=== PATIENT | female | born 1945 | race Caucasian/White ===

== ENCOUNTER → 2016-10-10 | Outpatient (CLI) | payer MEDICARE ==
--- NOTE | 2016-10-10 09:14 | USB ---
EXAMINATION TYPE: US breast complete RT DATE OF EXAM: 10/10/2016 COMPARISON: No prior right breast ultrasound. CLINICAL HISTORY: N63 R Breast lump/mass. Palpable abnormality. The patient and the 10:00 position. T he nurses notes skin dimpling and retraction. At the 12:00 position within the right breast there is a 5 mm shadowing benign ossification. Corresponding to the patient's palpable abnormality at the 10:00 position there is a mass measuring 2 .6 x 1.5 x 1.9 cm with irregular borders and posterior acoustic shadowing. Adjacent to this there is an ill-defined 7 mm area of hypoechogenicity with surrounding hyperechoic halo, left paracentral to t he index mass. This finding is highly suspicious and warrants ultrasound-guided biopsy. The axilla was scanned with no sonographically abnormal lymph nodes documented. IMPRESSION: 2.6 cm irregular shadowing mass at 10:00 position within the right breast, highly suspic ious for malignancy. Ultrasound-guided core biopsy is recommended of this mass.
== END | disposition home or self-care (01) ==
LOC: RADUSWWP 08:30
PROVIDERS: ATTEND Internal Medicine
DX: N63 Unspecified lump in breast (principal)

== ENCOUNTER → 2016-10-26 | Day surgery (SDC) | payer MEDICARE ==
[2016-10-26 07:22] VITALS: RESP 18; BMI 31.6
[2016-10-26 09:10] VITALS: BP 117/70; PULSE 80; TEMP 98
--- NOTE | 2016-10-26 09:52 | USB ---
EXAMINATION TYPE: US biopsy breast VAD RT DATE OF EXAM: 10/26/2016 CLINICAL HISTORY: R92.8 ABN MAMMO. TECHNIQUE: Ultrasound guided core biopsy of right breast. COMPARISON: NONE FINDINGS: The procedure of ultrasound guided core biopsy was explained to the patient. Benefits, alt ernatives, and risks were discussed. An informed consent was then obtained. The patient was placed in supine positioning for imaging and for the procedure. The overlying skin w as prepped and draped in usual sterile fashion. 9 cc of lidocaine without epinephrine was used as ane sthetic into the skin and 10 cc of lidocaine with epinephrine was utilized to anesthetize the subcuta neous tissue up to area of irregular shadowing mass corresponding to the palpable abnormality at the 10:00 position in the right breast with associated skin retraction. Under ultrasound guidance, a 12-gauge vacuum assisted biopsy gun device was used to obtain 6 core mello ples. Following this, a ribbon-shaped biopsy clip was left in lesion. The patient tolerated the procedure well without any immediate complication. The patient was kept in the radiology department for short stay after the procedure and then discharged home in stable condi tion. Postprocedure mammogram in the CC and MLO projections were performed with clip placed at the margin o f the mass without migration. IMPRESSION: Successful, uncomplicated ultrasound guided core biopsy of area of concern in the right b reast, full pathology results to follow.
--- NOTE | 2016-10-26 10:29 | MM ---
Reason for exam: additional evaluation requested from abnormal screening. Last mammogram was performed 8 months ago. History: Patient is postmenopausal and has history of other cancer at age 66. Family history of premenopausal breast cancer in paternal aunt at age 70 and premenopausal breast cancer in sister at age 50. Benign stereotactic core biopsy of the left breast, December 15, 1997. Excisional biopsy of the right breast, 1971. Took hormonal contraceptives for 5 years. Took estrogen for 2 years. Took progesterone for 2 years. MG Diagnostic Mammo RT Wo CAD CC and ML view(s) were taken of the right breast. Prior study comparison: February 24, 2016, bilateral MG 3d screening mammo w/cad. February 09, 2015, bilateral MG 3d screening mammo w/cad. ASSESSMENT: Post procedure mammogram for marker placement RECOMMENDATION: Ultrasound of the right breast in 6 months. PENDING PATHOLOGY RESULTS.
== END | disposition home or self-care (01) ==
LOC: RADUSWWP 06:50
PROVIDERS: ATTEND Internal Medicine
DX: C50.911 Malignant neoplasm of unspecified site of right female breast (principal); Z78.0 Asymptomatic menopausal state; Z80.3 Family history of malignant neoplasm of breast
CPT/HCPCS: 88305; 88342; 88341; 19083; G0206; A4648; J2001

== ENCOUNTER 2016-11-27 06:50 | Day surgery (SDC) | payer MEDICARE ==
[2016-11-23 08:41] VITALS: BMI 36.4
[~2016-11-27 06:50] MED LIST: DEXAMETHASONE SOD PHOSPHATE 10 MG/ML 1 ML VIAL IV ONE; LACTATED RINGERS 1,000 ML IV SCH; LIDOCAINE 1% 20 ML VIAL (10MG/ML) FOR IV START INTRADERMA PRN; MIDAZOLAM 2 MG/2 ML VIAL IV PRN; ONDANSETRON 4 MG/2 ML VIAL IVP ONE; Pre Op ABX Message 1 EACH MISC MISCELLANE ONE
[2016-11-27] MEDS ORDERED: ALPRAZolam 0.25 MG TAB PO ONE (07:31)
[2016-11-27 07:48] LABS: Glucose,Whole Blood 195 mg/dL (75-99)
[2016-11-27] MEDS: SCOPOLAMINE 1.5MG/72HR PATCH TRANSDERM ONE ×2 (07:51→09:28)
[2016-11-27] MEDS ORDERED: LIDOCAINE 1% INJ 10MG/ML (20 ML MDV) SQ ONE ×2 (08:18→10:21)
[2016-11-27] MEDS ORDERED: HEPARIN SODIUM,PORCINE 5,000 UNIT/ML 1 ML VIAL SQ ONE (08:37)
--- NOTE | 2016-11-27 09:10 | NM ---
EXAMINATION TYPE: NM sentinel node injection DATE OF EXAM: 11/27/2016 COMPARISON: NONE HISTORY: Right breast carcinoma TECHNIQUE AND FINDINGS: The procedure of sentinel lymph node injection was explained to the patient. The benefits, alternatives, and risks were discussed. An informed consent was then obtained. Overlying skin is cleaned with sterile alcohol. Lidocaine buffered with bicarbonate was used as anes thetic into the skin and subcutaneous tissue surrounding the nipple. Following this, 586 uCi Tc 99m Filtered Sulfur Colloid was injected into 4 equivalent doses at 12, 3, 6, and 9:00 position surroundi ng the right nipple intradermally. The injection sites were massaged by nuclear medicine officer for 10 minutes after injection. T he patient tolerated the procedure well without any immediate complication. The patient was kept in the radiology department for short stay after the procedure and then taken to surgery for surgical pr ocedure what is presumed intraoperative gamma probe will be used for sentinel lymph node detection. IMPRESSION: Right breast radiotracer injection for sentinel node localization as above.
[2016-11-27] MEDS ORDERED: PROPOFOL 10 MG/ML 20 ML VIAL IV ONE (09:39)
[2016-11-27] MEDS ORDERED: LIDOCAINE 1% INJ 10MG/ML (20 ML MDV) ONE (09:39)
[2016-11-27] MEDS ORDERED: fentaNYL (PF) 50 MCG/ML 2 ML AMP ONE (09:39)
[2016-11-27] MEDS ORDERED: GLYCOPYRROLATE 0.2 MG/ML 2 ML VIAL ONE (09:39)
[2016-11-27] MEDS ORDERED: ROCURONIUM BROMIDE 10 MG/ML 10 ML VIAL IV ONE (09:39)
[2016-11-27] MEDS ORDERED: SUCCINYLCHOLINE CHLORIDE 100 MG/5 ML SYR IV ONE (09:39)
[2016-11-27] MEDS ORDERED: DEXAMETHASONE SOD PHOS (MDV) 100 MG/10 ML VIAL ONE (09:39)
[2016-11-27] MEDS ORDERED: KETOROLAC 30 MG/ML 1 ML VIAL ONE (09:39)
[2016-11-27] MEDS ORDERED: diphenhydrAMINE 50 MG/ML 1 ML VIAL ONE (09:39)
[2016-11-27] MEDS ORDERED: NEOSTIGMINE 1 MG/ML 10 ML VIAL ONE (09:39)
[2016-11-27] MEDS ORDERED: DEXTROSE 5% IV ONE ×2 (10:00)
[2016-11-27] MEDS ORDERED: METHYLENE BLUE IV ONE ×2 (10:00)
[2016-11-27] MEDS ORDERED: WATER IV ONE ×2 (10:00)
--- NOTE | 2016-11-27 11:49 | P.OP ---
Date of Procedure: 11/27/16 Preoperative Diagnosis: Right breast cancer Postoperative Diagnosis: Same Procedure(s) Performed: Right breast sentinel node mapping, right breast lumpectomy, tissue transfer BioSorb implantation, right axillary sentinel node biopsy Implants: Biozorb Anesthesia: GETA Surgeon: Yolis Wang Estimated Blood Loss (ml): 10 IV fluids (ml): 600 Pathology: other (The breast tissue, axillary sentinel node biopsy) Condition: stable Disposition: PACU Indications for Procedure: Right breast cancer Operative Findings: Right breast cancer Description of Procedure: Patient was taken to the operating room and following induction of general anesthesia the periareolar area was prepped using alcohol. Half-strength methylene blue was injected in the periareolar area, approximately 5 mL. Following this the breast was massaged. The breast was then prepped and draped in a sterile fashion and the arm was free draped. The elliptical skin incision was made at the area of the needle localization wire. This was carried down around the area of concern the skin was excised and the dissection was carried to the chest wall. Grossly there was no evidence of tumor at the margins. The specimen was then painted and sent for radiographic evaluation. Radiographic evaluation area of concern had been removed. He was packed in the axilla was approached. Instruments and gloves were changed. The right count was used to identify the area of highest intensity and a axillary incision was made. This was carried down through skin and subcutaneous tissue to the axillary contents. [place] nodes were identified below and was blue and the 10 second count was 4000 and the second was radioactive with a 10 second count of 382 but no blue dye was identified. This was sent for frozen section evaluation both were negative for cancer. Third enlargement was identified which was also sent for permanent section as axillary contents. Following this a CHESTER drain was placed in the axilla the deep tissues were closed with 3-0 Vicryl suture and the skin was closed with 4-0 Monocryl. Steri-Strips applie. The area of the defect in the breast was then again approached. The defect size was 10 cm x 6 cm. Soft tissue was mobilized approximately 10 cm x 6 cm on either side of the defect and the tissue was mobilized to bleeding to fill in the area of the defect. Medial and lateral sutures were placed into the defects to close the defect. A number 3 BioSorb spacer and titanium marker was inserted. This was secured in place using 3-0 Vicryl suture. The cavity was closed over this using 3-0 Vicryl suture. The skin was reapproximated using a 4-0 Monocryl. The patient tolerated the procedure in stable condition. All instrument sponge counts were correct at the end of the case.
--- NOTE | 2016-11-27 11:52 | P.DS ---
Providers Attending physician: Yolis Wang Primary care physician: Henry Bowling Plan - Discharge Summary New Discharge Prescriptions: New HYDROcodone/APAP 5-325MG [[place] 5] 1 - 2 each PO Q4H PRN #20 tab PRN Reason: Pain No Action metFORMIN HCL 500 mg PO BID Aspirin 81 mg PO DAILY Allopurinol [Zyloprim] 300 mg PO DAILY Ergocalciferol (Vitamin D2) [Vitamin D2] 50,000 unit PO TH Ketorolac [Toradol] 10 mg PO Q8HR PRN PRN Reason: migraines Ezetimibe [Zetia] 10 mg PO HS Rosuvastatin [Crestor] 10 mg PO MOWEFR Escitalopram [Lexapro] 10 mg PO DAILY Amitriptyline HCl [Elavil] 50 mg PO HS Fioricet(Dose Unknown) 1 tab PO Q8HR PRN PRN Reason: migraines Pantoprazole Sodium 40 mg PO DAILY PRN PRN Reason: Heartburn Discharge Medication List Allopurinol [Zyloprim] 300 mg PO DAILY 12/02/13 [History] Aspirin 81 mg PO DAILY 12/02/13 [History] metFORMIN HCL 500 mg PO BID 12/02/13 [History] Ergocalciferol (Vitamin D2) [Vitamin D2] 50,000 unit PO TH 10/19/16 [History] Amitriptyline HCl [Elavil] 50 mg PO HS 11/23/16 [History] Escitalopram [Lexapro] 10 mg PO DAILY 11/23/16 [History] Ezetimibe [Zetia] 10 mg PO HS 11/23/16 [History] Fioricet(Dose Unknown) 1 tab PO Q8HR PRN 11/23/16 [History] Ketorolac [Toradol] 10 mg PO Q8HR PRN 11/23/16 [History] Pantoprazole Sodium 40 mg PO DAILY PRN 11/23/16 [History] Rosuvastatin [Crestor] 10 mg PO MOWEFR 11/23/16 [History] HYDROcodone/APAP 5-325MG [[place] 5] 1 - 2 each PO Q4H PRN #20 tab 11/27/16 [Rx] Follow up Appointment(s)/Referral(s): Yolis Wang MD [STAFF PHYSICIAN] - 1 Week Activity/Diet/Wound Care/Special Instructions: teach drain care do not drive today, or if taking narcotic pain medication may be in shower in 24 hours Discharge Disposition: HOME SELF-CARE
--- NOTE | 2016-11-27 11:52 | MM ---
EXAMINATION TYPE: MG pre op needle loc RT, MG surgical specimen RT DATE OF EXAM: 11/27/2016 9:03 AM COMPARISON: NONE HISTORY: Right breast malignancy Informed consent was obtained and all the patient's questions were answered. The lesion in question was localized mammographically. The standard sterile technique was utilized, as well as appropriate local anesthesia with 1% Lidocaine and bicarbonate. Localization needle followed by placement of a guidewire was performed under mammographic guidance. Verification images demonstrate appropriate depl oyment of the guidewire. The patient tolerated the procedure well and left the department in stable condition. Specimen radiograph demonstrates the lesion and clip in question to reside within the specimen. IMPRESSION: Successful needle localization and open biopsy right breast with pathology results rhea Gutierrez
[2016-11-27] MEDS: HYDROmorphone 1 MG/ML 1 ML SYRINGE IVP PRN ×4 (12:15→12:30)
[2016-11-27 12:33] VITALS: TEMP 98
[2016-11-27 12:52] LABS: Glucose,Whole Blood 264 mg/dL (75-99)
[2016-11-27] MEDS ORDERED: INSULIN LISPRO (humaLOG) 300 UNIT/3 ML VIAL SQ ONE (12:55)
[2016-11-27] MEDS ORDERED: ONDANSETRON 4 MG/2 ML VIAL IVP ONE (13:07)
[2016-11-27] MEDS ORDERED: diphenhydrAMINE 50 MG/ML 1 ML VIAL IVP ONE (13:16)
[2016-11-27 14:03] VITALS: BP 104/74; PULSE 94; RESP 20
== END 2016-11-27 14:48 | disposition home or self-care (01) ==
LOC: OR 06:50
PROVIDERS: ATTEND Surgery
DX: C50.911 Malignant neoplasm of unspecified site of right female breast (principal); E78.5 Hyperlipidemia, unspecified; Z87.891 Personal history of nicotine dependence; E11.9 Type 2 diabetes mellitus without complications; Z79.84 Long term (current) use of oral hypoglycemic drugs; K21.9 Gastro-esophageal reflux disease without esophagitis; Z79.82 Long term (current) use of aspirin; Z79.899 Other long term (current) drug therapy; Z91.09 Other allergy status, other than to drugs and biological substances
CPT/HCPCS: 76098; 19281; 38792; 19301; 38500; A9541; J1200; J1644; J1100 ×2; J2710; J2405; J2001; Q9968; J3010; J1885; J1170; J0330; J2704

== ENCOUNTER → 2017-01-01 | Outpatient (CLI) | payer MEDICARE ==
--- NOTE | 2017-01-01 11:19 | BD ---
EXAMINATION TYPE: MG DEXA axial skeleton. DATE OF EXAM: 01/01/2017 COMPARISON: Bone density July 07, 2012 CLINICAL HISTORY: Postmenopausal female Height: 62 Weight: 192.8 FRAX RISK QUESTIONS: Alcohol (3 or more units per day): no Family History (Parent hip fracture): no Glucocorticoids (More than 3mos): no (Ex: prednisone, prednisolone, methylprednisolone, dexamethasone, and hydrocortisone). History of Fracture in Adulthood: no Secondary Osteoporosis: 1. Type 1 Diabetes: no 2. Hyperthyroidism: no 3. Menopause before 45: yes 4. Malnutrition: no 5. Chronic liver disease: no Rheumatoid Arthritis: no Current Tobacco Use: no RISK FACTORS HISTORY OF: Hip Fracture (Right/Left): no Spine Fracture: no History of Wrist Fracture: no Surgery to Spine/Hip(right/left)/Wrist (right/left): no Family History of Osteoporosis: yes Active: yes Diet low in dairy products/other sources of calcium: yes Postmenopausal woman: hysterectomy age 33 Lost more than 2 inches in height since high school: no Frequent falls: no Poor Health: no Hyperparathyroidism: no Adrenal Insufficiency: no MEDICATIONS: hydrocodone, allopurinol, metformin, ketorolac, pantoprazole, ergocalciferol. floricet, rosuvastatin, escitalopram, amitriptyline , ezetimibe Additional History: pt has had breast cancer EXAM MEASUREMENTS: Bone mineral densitometry was performed using the Tech Cocktail System. Bone mineral density as measured about the Lumbar spine is: ----- L1-L4(G/cm2): 1.264 T Score Values are as follows: ----- L2: 0.1 ----- L3: 0.5 ----- L4: 1.5 ----- L1-L4: 0.7 Bone mineral density has: increased 0.2 % since study of: 07.07.2012 Bone mineral density about the R hip (g/cm2): 0.886 Bone mineral density about the L hip (g/cm2): 0.936 T Score values are as follows: -----R Neck: -1.1 -----L Neck: -0.7 -----R Total: 0.1 -----L Total: 0.7 Bone mineral density has: decreased -3.8 % since study of: 07.07.2012 IMPRESSION: Osteopenia (T Score between -2.5 and -1 as noted by T score values is now present femoral neck level in the right hip. Bone density is decreased or diminished from prior. There is slightly increased risk of fracture and the patient may be considered for treatment. Re-Screen 2-5 years. NOTE: T-SCORE=SD OF THE YOUNG ADULT MEAN.
== END | disposition home or self-care (01) ==
LOC: RADBDWWP 09:05
PROVIDERS: ATTEND Internal Medicine Hematology & Oncology
DX: C50.411 Malignant neoplasm of upper-outer quadrant of right female breast (principal); M85.852 Other specified disorders of bone density and structure, left thigh; Z78.0 Asymptomatic menopausal state
CPT/HCPCS: 77080

== ENCOUNTER → 2017-01-14 | Outpatient (CLI) | payer MEDICARE ==
--- NOTE | 2017-01-14 14:38 | MM ---
Reason for exam: follow-up at short interval from prior study. Last mammogram was performed 3 months ago. History: Patient is postmenopausal, has history of breast cancer at age 71, and has history of other cancer at age 66. Family history of premenopausal breast cancer in paternal aunt at age 70 and premenopausal breast cancer in sister at age 50. Malignant MG pre op needle loc RT of the right breast, November 27, 2016. Malignant US biopsy breast VAD RT of the right breast, October 26, 2016. Benign stereotactic core biopsy of the left breast, December 15, 1997. Excisional biopsy of the right breast, 1971. Took hormonal contraceptives for 5 years. Took estrogen for 2 years. Took progesterone for 2 years. Physical Findings: Nurse did not find any significant physical abnormalities on exam. MG 3D Diag Mammo W/Cad LT CC, MLO, and spot compression CC view(s) were taken of the left breast. Prior study comparison: October 26, 2016, right breast MG diagnostic mammo RT wo CAD. February 24, 2016, bilateral MG 3d screening mammo w/cad. February 09, 2015, bilateral MG 3d screening mammo w/cad. Medial asymmetry at middle depth appears similar to 2014, spot compression view done as a precautionary measure. Improves on additional view. These results were verbally communicated with the patient and result sheet given to the patient on 01/14/17. ASSESSMENT: Benign, BI-RAD 2 RECOMMENDATION: Follow-up diagnostic mammogram of both breasts in 9 months. Back on schedule.
== END | disposition home or self-care (01) ==
LOC: RADMAMWWP 13:25
PROVIDERS: ATTEND Surgery
DX: Z08 Encounter for follow-up examination after completed treatment for malignant neoplasm (principal); Z85.3 Personal history of malignant neoplasm of breast
CPT/HCPCS: G0206; G0279

== ENCOUNTER → 2017-06-26 | Outpatient (CLI) | payer MEDICARE ==
--- NOTE | 2017-06-27 11:14 | USB ---
Reason for exam: clinical finding. History: Patient is postmenopausal, has history of breast cancer at age 71, and has history of other cancer at age 66. Family history of premenopausal breast cancer in paternal aunt at age 70 and premenopausal breast cancer in sister at age 50. Malignant MG pre op needle loc RT of the right breast, November 27, 2016. Malignant US biopsy breast VAD RT of the right breast, October 26, 2016. Benign stereotactic core biopsy of the left breast, December 15, 1997. Excisional biopsy of the right breast, 1971. Took hormonal contraceptives for 5 years. Took estrogen for 2 years. Took progesterone for 2 years. Indicated problem(s): palpable abnormality in the right breast. Physical Findings: Nurse Summary: 2.5cm firm nodule near incision (nurse dw). US Breast RT Right breast ultrasound includes all four quadrants, the retroareolar region and axilla. Finding demonstrates a 3.1 x 0.9 x 2.8cm cystic fluid collection at 10 o'clock, possible seroma, not hypoechoic with debris like typical abscess. There may be a foreign body deep to the fluid collection. These results were verbally communicated with the patient and result sheet given to the patient on 06/26/17. ASSESSMENT: Probably benign, BI-RAD 3 RECOMMENDATION: Clinical management of the right breast. Manage patient on a clinical basis.
== END | disposition home or self-care (01) ==
LOC: RADUSWWP 14:35
PROVIDERS: ATTEND Radiology Radiation Oncology
DX: N64.4 Mastodynia (principal); C50.411 Malignant neoplasm of upper-outer quadrant of right female breast; Z85.3 Personal history of malignant neoplasm of breast

== ENCOUNTER → 2017-07-24 | Day surgery (SDC) | payer MEDICARE ==
[2017-07-24 12:03] VITALS: RESP 16; BMI 38.0
[2017-07-24 13:48] VITALS: BP 108/72; PULSE 75; TEMP 98.8
--- NOTE | 2017-07-24 14:08 | USB ---
EXAMINATION TYPE: US breast aspiration single RT DATE OF EXAM: 07/24/2017 CLINICAL HISTORY: 72-year-old female with right breast pain. Patient with relatively recent right-chayito ed lumpectomy and radiation therapy for right breast cancer. Lumpectomy on 11/27/2016 and radiation th erapy completed in March. TECHNIQUE: Ultrasound guided aspiration right breast. COMPARISON: 06/26/2017 FINDINGS: The procedure of ultrasound guided core biopsy was explained to the patient. Benefits, alt ernatives, and risks were discussed. An informed consent was then obtained. The patient was placed in supine positioning for imaging and for the procedure. The overlying skin w as prepped and draped in usual sterile fashion. Lidocaine buffered with bicarbonate was used as anes thetic into the skin and subcutaneous tissue up to area of concern in the right breast. The 2.7 x 2.7 x 0.5 cm minimally complex, circumscribed fluid collection at the patient's lumpectomy site is redemonstrated and targeted for aspiration. Under ultrasound guidance, an 18-gauge needle is advanced into the collection. Aspiration yields 3 mL of clear yellow fluid. The fluid collection completely resolved. The fluid specimen is being sent for cytology and microbiology. The patient tolerated the procedure well without any immediate complication. The patient was kept in the radiology department for short stay after the procedure and then discharged home in stable condi tion. IMPRESSION: Successful, uncomplicated ultrasound guided aspiration of suspected postlumpectomy seroma right breas t. Laboratory analysis of the fluid is pending.
[2017-07-24 16:54] LABS: Appearance,BF Hazy; Nucleated Cells, Body Fluid 13 /uL; RBC, Body Fluid 13 /uL
[2017-07-24 16:55] LABS: Mononuclear WBC,Body Fluid 100 %; Total Cells Counted,Body Fluid 100
== END ==
LOC: RADUSWWP 11:45
PROVIDERS: ATTEND Surgery
DX: N60.01 Solitary cyst of right breast (principal); Z85.3 Personal history of malignant neoplasm of breast; Z92.3 Personal history of irradiation
CPT/HCPCS: 88108; 89050; 87070; 87205; 87075; 76942; 19000; J2001

== ENCOUNTER → 2017-08-01 | Outpatient (CLI) | payer MEDICARE ==
--- NOTE | 2017-08-01 15:37 | P.CON ---
Consult Note - . Consult date: 08/01/17 Assessment/Plan:: Patient is a 72 year old white female who was initially complaining of pain at a surgical site in the right breast. She is status post lumpectomy and SNB. The cytology was benign, and the micro was no growth. Patient is due to have bilateral mammogram in September. She is feeling much better without any complaints. Physical Exam: puncture site clean and dry no infection Plan: 1. Follow up in September with bilateral mammogram 2. follow up wit ct after mammogram/ follow up sooner if any complaints or concerns
== END ==
LOC: WWCWWP 15:20
PROVIDERS: ATTEND Surgery
DX: N64.4 Mastodynia (principal); Z53.9 Procedure and treatment not carried out, unspecified reason

== ENCOUNTER → 2017-09-09 | Outpatient (CLI) | payer MEDICARE ==
--- NOTE | 2017-09-09 14:29 | MM ---
Reason for exam: follow-up at short interval from prior study. Last mammogram was performed 8 months ago. History: Patient is postmenopausal, has history of breast cancer at age 71, and has history of other cancer at age 66. Family history of premenopausal breast cancer in paternal aunt at age 70 and premenopausal breast cancer in sister at age 50. Benign US breast aspiration single RT of the right breast, July 24, 2017. Malignant MG pre op needle loc RT of the right breast, November 27, 2016. Malignant US biopsy breast VAD RT of the right breast, October 26, 2016. Radiation therapy of the right breast, 2016. Benign stereotactic core biopsy of the left breast, December 15, 1997. Excisional biopsy of the right breast, 1971. Took hormonal contraceptives for 5 years. Took estrogen for 2 years. Took progesterone for 2 years. Taking antineoplastic beginning at age 71. Physical Findings: Nurse did not find any significant physical abnormalities on exam. MG 3D Diag Mammo W/Cad [facility] Bilateral CC and MLO view(s) were taken. Prior study comparison: January 14, 2017, left breast MG 3d diag mammo w/cad LT. October 26, 2016, right breast MG diagnostic mammo RT wo CAD. There are scattered fibroglandular densities. Post surgical and post therapy changes in the right breast, with lumpectomy scar and BioZorb marker. Secretory calcifications upper outer quadrant sightly increased. 6 month follow up can be performed to assess any evolving post therapy changes. These results were verbally communicated with the patient and result sheet given to the patient on 09/09/17. ASSESSMENT: Probably benign, BI-RAD 3 RECOMMENDATION: Follow-up diagnostic mammogram of the right breast in 6 months.
== END | disposition home or self-care (01) ==
LOC: RADMAMWWP 13:26
PROVIDERS: ATTEND Radiology Radiation Oncology
DX: Z08 Encounter for follow-up examination after completed treatment for malignant neoplasm (principal); Z85.3 Personal history of malignant neoplasm of breast
CPT/HCPCS: 77066; G0279; 77062

== ENCOUNTER → 2018-10-27 | Outpatient (CLI) | payer MEDICARE ==
--- NOTE | 2018-10-28 13:37 | MM ---
Reason for exam: screening (asymptomatic). Last mammogram was performed 7 months ago. History: Patient is postmenopausal, has history of breast cancer at age 71, and has history of other cancer at age 66. Family history of premenopausal breast cancer in paternal aunt at age 70 and premenopausal breast cancer in sister at age 50. Benign US breast aspiration single RT of the right breast, July 24, 2017. Malignant MG pre op needle loc RT of the right breast, November 27, 2016. Malignant US biopsy breast VAD RT of the right breast, October 26, 2016. Radiation therapy of the right breast, 2016. Benign stereotactic core biopsy of the left breast, December 15, 1997. Excisional biopsy of the right breast, 1971. Took hormonal contraceptives for 5 years. Took estrogen for 2 years. Took progesterone for 2 years. Taking antineoplastic beginning at age 71. Physical Findings: A clinical breast exam by your physician is recommended on an annual basis and results should be correlated with mammographic findings. MG 3D Screening Mammo W/Cad Bilateral CC and MLO view(s) were taken. Prior study comparison: April 09, 2018, mammogram, performed at [place]. September 09, 2017, bilateral MG 3d diag mammo w/cad [facility]. January 14, 2017, left breast MG 3d diag mammo w/cad LT. There are scattered fibroglandular densities. Post surgical and post therapy changes right breast with Biozorb device and secretory calcifications redemonstrated. Nodular asymmetry centrally and anteriorly left MLO view is more defined. ASSESSMENT: Incomplete: need additional imaging evaluation, BI-RAD 0 RECOMMENDATION: Special view mammogram of the left breast. (3D) If lesion persists on supplemental views, image directed ultrasound is recommended. [facility] will attempt to contact patient to return for supplemental views and ultrasound if indicated.
== END | disposition home or self-care (01) ==
LOC: RADMAMWWP 10:41
PROVIDERS: ATTEND Surgery
DX: Z12.31 Encounter for screening mammogram for malignant neoplasm of breast (principal)
CPT/HCPCS: 77063; 77067

== ENCOUNTER → 2018-11-06 | Outpatient (CLI) | payer MEDICARE ==
--- NOTE | 2018-11-06 14:12 | MM ---
Reason for exam: additional evaluation requested from abnormal screening. Last mammogram was performed less than 1 month ago. History: Patient is postmenopausal, has history of breast cancer at age 71, and has history of other cancer at age 66. Family history of premenopausal breast cancer in paternal aunt at age 70 and premenopausal breast cancer in sister at age 50. Benign US breast aspiration single RT of the right breast, July 24, 2017. Malignant MG pre op needle loc RT of the right breast, November 27, 2016. Malignant US biopsy breast VAD RT of the right breast, October 26, 2016. Radiation therapy of the right breast, 2016. Benign stereotactic core biopsy of the left breast, December 15, 1997. Excisional biopsy of the right breast, 1971. Took hormonal contraceptives for 5 years. Took estrogen for 2 years. Took progesterone for 2 years. Taking antineoplastic beginning at age 71. Physical Findings: Nurse did not find any significant physical abnormalities on exam. MG 3D Work Up W/Cad LT Spot compression CC, spot compression MLO, and LM view(s) were taken of the left breast. Prior study comparison: October 27, 2018, bilateral MG 3d screening mammo w/cad. April 09, 2018, mammogram, performed at [place]. The breast tissue is heterogeneously dense. This may lower the sensitivity of mammography. Benign appearing calcifications in the left breast. Left upper inner quadrant focal asymmetry resolves on MLO spot compression and ML vies and appears stable on CC back to 2014. These results were verbally communicated with the patient and result sheet given to the patient on 11/06/18. ASSESSMENT: Benign, BI-RAD 2 RECOMMENDATION: Return to routine screening mammogram schedule for both breasts.
== END | disposition home or self-care (01) ==
LOC: RADMAMWWP 13:17
PROVIDERS: ATTEND Surgery
DX: R92.8 Other abnormal and inconclusive findings on diagnostic imaging of breast (principal)
CPT/HCPCS: 77065; G0279; 77061

== ENCOUNTER → 2018-11-14 | Outpatient (CLI) | payer MEDICARE ==
[2018-11-14 13:13] VITALS: BP 151/62; PULSE 74; RESP 18; TEMP 98.1; BMI 38.5
--- NOTE | 2018-11-14 13:48 | P.PN ---
Subjective Progress Note Date: 11/14/18 Patient is a 72 year old white female status post right breast lumpectomy November and re-excisoin December of 2016. patient had radiation therapy. Patient did not have any chemotherapy, but she had been treated with letrazole. Bilateral mammogram was done on 10-27-18. Special views of the left breast recommended. Additional views of the left breast were obtained on 11-06-18. These were felt to be benign and repeat mammogram in October 2019. The patient continues to have discomfort in her right breast. She can still feel the BioSorb. The tenderness is at the 12 o'clock position and extends under the right arm. There is a low-grade constant ache. She has no fever chills or evidence of infection. No history of any trauma. The patient continues on letrazole. family history: father: multiple myloma mother; lung cancer sister: breast cancer maternal aunt: melanoma maternal uncle: brain cancer maternal uncle: laryengeal cancer paternal aunt: "ear" cancer paternal uncle: Laryngeal cancer patient: 4 skin cancers past surgical history; 1. right breast cancer 2. tubal/hysterectomy 3. gallbladder 4. right knee 3 times 5. right leg fracture 6. bilateral shoulder bone spurs Medical History: 1. diabetic 2. arthritis 3. history of skin cancer no melanoma Social History: smoke: stopped 27 years ago alcohol: wine three times/week drugs: none - EENT Eyes: denies blurred vision, denies bulging eye, denies decreased vision, denies diplopia, denies discharge Ears: deny: decreased hearing, ear discharge, earache, tinnitus Ears, nose, mouth and throat: Reports as per HPI - Breasts Breasts: bilateral: as per HPI - Cardiovascular Cardiovascular: Reports as per HPI - Respiratory Respiratory: Denies cough - Gastrointestinal Gastrointestinal: Denies abdominal pain, Denies diarrhea, Denies nausea, Denies vomiting - Genitourinary (Female) Genitourinary: Denies dysuria, Denies hematuria - Genitourinary (Male) Genitourinary: Denies dysuria, Denies hematuria - Musculoskeletal Comment: arthritis - Integumentary Comment: skin cancer times four - Neurological Comment: migrains Neurological: Denies numbness, Denies weakness - Psychiatric Psychiatric: Denies anxiety, Denies depression - Endocrine Comment: diabetes - Hematologic/Lymphatic Comment: takes aspirin - Allergic/Immunologic Allergic/Immunologic: Reports seasonal allergies Past Medical History Past Medical History: Cancer, Diabetes Mellitus, GERD/Reflux, Hyperlipidemia, Osteoarthritis (OA), Skin Disorder Additional Past Medical History / Comment(s): Migraines, hx. of pancreatitis, "inverted T waves" in past, rosacea, skin cancer, breast cancer, c-diff yrs ago History of Any Multi-Drug Resistant Organisms: None Reported Date of last positivie culture/infection: 2002 MDRO Source:: STOOL Past Surgical History: Appendectomy, Breast Surgery, Cholecystectomy, Hysterectomy, Joint Replacement, Orthopedic Surgery Additional Past Surgical History / Comment(s): rt knee replacement x 3. ORIF left ANKLE.. BILATERAL SHOULDER SURGERY FOR SPUR REMOVAL. BILATERAL HEELS BONE SPUR REMOVAL AND PLANTAR FASCITIS SURGERY. left GREAT TOE BONE SPUR REMOVAL. rt breast biopsy, recent adm. for Lumpectomy states margins were not wide enough. Past Anesthesia/Blood Transfusion Reactions: Motion Sickness, Postoperative Nausea & Vomiting (PONV) Additional Past Anesthesia/Blood Transfusion Reaction / Comment(s): States was still having nausea after surgery. Past Psychological History: Anxiety Smoking Status: Former smoker Past Alcohol Use History: Occasional Additional Past Alcohol Use History / Comment(s): quit smoking 25 yrs ago, smoked for 20 yrs, 1 PPD Past Drug Use History: None Reported Objective - Vital Signs Vital signs: Vital Signs Temp 98.1 F 11/14/18 13:09 Pulse 74 11/14/18 13:09 Resp 18 11/14/18 13:09 BP 151/62 11/14/18 13:09 Pulse Ox 98 11/14/18 13:09 Intake & Output 11/13/18 11/14/18 11/14/18 18:59 06:59 18:59 Weight 89.358 kg - Exam BMI 38.5 - Constitutional General appearance: Present: obese - EENT Eyes: Present: EOMI ENT: Present: hearing grossly normal - Neck Neck: Present: normal ROM - Respiratory Respiratory: bilateral: CTA - Cardiovascular Rhythm: regular Heart sounds: normal: S1, S2 - Gastrointestinal General gastrointestinal: Present: soft - Integumentary Integumentary: Present: normal turgor - Musculoskeletal Musculoskeletal: Present: gait normal - Psychiatric Psychiatric: Present: A&O x's 3, appropriate affect - Additional findings Additional findings: Breast examination: Right breast: Postoperative changes secondary to prior right lumpectomy, is believed to be BioSorb still palpable, this area is tender No dominant masses or nodules of concern for recurrent cancer Right axilla: No adenopathy of concern Right breast is smaller than left breast. Left breast 44 double D Right breast 44 mL Left breast: Multi-positional exam no dominant masses or nodules of concern, fibrocystic changes Left axilla: No adenopathy of concern Assessment and Plan Assessment: Impression: 1. Mastodynia right breast lumpectomy/biopsy of site; this is most likely multifactorial related to radiation, scar tissue from lumpectomy, and BioSorb 2. Prior history of right breast carcinoma treated with lumpectomy, radiation, left resolve 3. Family history of cancer 4. Family history of breast cancer 5. Asymmetry of breast resulting in neck pain and difficulty finding closed to fit well 6. BMI 38.5 7. diabetes 8. Chronic neck/back pain may be related to asymmetry of breasts enlarged size of left breast 9. Shoulder notching secondary to heavy breast Plan: 1. Repeat bilateral mammogram in October 2. Continue lead resolved 3. Consider contralateral symmetry procedure of the left breast which would result in a reduction secondary to the size difference between the breast 4. Medical management of medical conditions 5. Consider removal of Biozorb secondary to persistent discomfort in the right breast CC: Dr. Bowling
== END ==
LOC: WWCWWP 12:45
PROVIDERS: ATTEND Surgery
DX: Z53.9 Procedure and treatment not carried out, unspecified reason (principal)

== ENCOUNTER → 2018-12-16 | Outpatient (CLI) | payer MEDICARE ==
--- NOTE | 2018-12-16 14:49 | BD ---
EXAMINATION TYPE: Axial Bone Density DATE OF EXAM: 12/16/2018 COMPARISON: 2017 CLINICAL HISTORY: M 85.9, C 50.411 Height: 5 FT 1 IN Weight: 188 FRAX RISK QUESTIONS: History of Fracture in Adulthood: YES Secondary Osteoporosis: 3. Menopause before 45: UNSURE RISK FACTORS HISTORY OF: Family History of Osteoporosis: YES Active: NO Postmenopausal woman: PART HYST AGE 36 NOT MANY SYMPTOMS Take estrogen and/or progesterone medications: TOOK HRT FOR A COUPLE OF YEARS NO LONGER MEDICATIONS: Additional Medications: LEXYPRO, ALLOPURINOL, CRESTOR,ZETIA, LETRAZOLE, METFORMIN, GLIPIZIDE, JENUVIA ,VIT D Additional History: BREAST CANCER WITH RADIATION 2017 EXAM MEASUREMENTS: Bone mineral densitometry was performed using the [employer] System. Bone mineral density as measured about the Lumbar spine is: ----- L1-L4(G/cm2): 1.242 T Score Values are as follows: ----- L2: 0.6 ----- L3: 0.5 ----- L4: 0.4 ----- L1-L4: 0.5 Bone mineral density has: DECREASED -1.9 % since study of: 2016 Bone mineral density about the R hip (g/cm2): 0.853 Bone mineral density about the L hip (g/cm2): 0.883 T Score values are as follows: -----R Neck: -1.3 -----L Neck: -1.1 -----R Total: -0.5 -----L Total: 0.3 Bone mineral density has: DECREASED -5.9 % since study of: 2016 IMPRESSION: Osteopenia (T Score between -2.5 and -1). There is slightly increased risk of fracture and the patient may be considered for treatment. Re-Screen 2-5 years. NOTE: T-SCORE=SD OF THE YOUNG ADULT MEAN.
== END | disposition home or self-care (01) ==
LOC: RADBDWWP 09:50
PROVIDERS: ATTEND Internal Medicine Hematology & Oncology
DX: C50.411 Malignant neoplasm of upper-outer quadrant of right female breast (principal); M85.80 Other specified disorders of bone density and structure, unspecified site; Z79.890 Hormone replacement therapy
CPT/HCPCS: 77080

== ENCOUNTER → 2019-01-09 | Outpatient (CLI) | payer MEDICARE ==
[2019-01-09 09:35] VITALS: BP 115/80; PULSE 78; RESP 18; TEMP 98.5; BMI 36.7
--- NOTE | 2019-01-09 10:29 | P.PN ---
Subjective Progress Note Date: 01/09/19 Principal diagnosis: pre-op visit for contra-lateral symmetry procedure Stage IIA [id number] ER/KS+ Her2-, Oncotype 20, Patient is a 72 year old white female status post right breast lumpectomy November and re-excisoin December of 2016. patient had radiation therapy. Patient did not have any chemotherapy, but she had been treated with letrazole. Bilateral mammogram was done on 10-27-18. Special views of the left breast recommended. Additional views of the left breast were obtained on 11-06-18. These were felt to be benign and repeat mammogram in October 2019. The patient continues to have discomfort in her right breast. She can still feel the BioSorb. The tenderness is at the 12 o'clock position and extends under the right arm. There is a low-grade constant ache. She has no fever chills or evidence of infection. No history of any trauma. The patient continues on letrazole. Patient has had constant persistent pain in the right breast. The pain is felt to be multifactorial and is most likely related to the scar tissue, radiation, and BioSorb. The patient at this time wishes the right breast to be removed. We have discussed that this may or may not resolve her pain she understands this and still wishes the right breast to be removed. Secondary to the fact that the left side is a 44 double D she will be very asymmetric and wishes to have a reduction on the left side[place] [id number]. This revealed right breast postsurgical and post-therapeutic changes. Additional views of the left breast recommended these were performed and felt to be benign BIRADS 2. She has had recent radiograph of the left side which was benign BIRADS 2. family history: father: multiple myloma mother; lung cancer sister: breast cancer maternal aunt: melanoma maternal uncle: brain cancer maternal uncle: laryengeal cancer paternal aunt: "ear" cancer paternal uncle: Laryngeal cancer patient: 4 skin cancers past surgical history; 1. right breast cancer 2. tubal/hysterectomy 3. gallbladder 4. right knee 3 times 5. right leg fracture 6. bilateral shoulder bone spurs Medical History: 1. diabetic (type 2) 2. arthritis 3. history of skin cancer no melanoma Social History: smoke: stopped 27 years ago alcohol: wine three times/week drugs: none - EENT Eyes: denies blurred vision, denies bulging eye, denies decreased vision, denies diplopia, denies discharge Ears: deny: decreased hearing, ear discharge, earache, tinnitus Ears, nose, mouth and throat: Reports as per HPI - Breasts Breasts: bilateral: as per HPI - Cardiovascular Cardiovascular: Reports as per HPI - Respiratory Respiratory: Denies cough - Gastrointestinal Gastrointestinal: Denies abdominal pain, Denies diarrhea, Denies nausea, Denies vomiting - Genitourinary (Female) Genitourinary: Denies dysuria, Denies hematuria - Genitourinary (Male) Genitourinary: Denies dysuria, Denies hematuria - Musculoskeletal Comment: arthritis - Integumentary Comment: skin cancer times four - Neurological Comment: migrains Neurological: Denies numbness, Denies weakness - Psychiatric Psychiatric: Denies anxiety, Denies depression - Endocrine Comment: diabetes - Hematologic/Lymphatic Comment: takes aspirin - Allergic/Immunologic Allergic/Immunologic: Reports seasonal allergies Past Medical History Past Medical History: Cancer, Diabetes Mellitus, GERD/Reflux, Hyperlipidemia, Osteoarthritis (OA), Skin Disorder Additional Past Medical History / Comment(s): Migraines, hx. of pancreatitis, "inverted T waves" in past, rosacea, skin cancer, breast cancer, c-diff yrs ago History of Any Multi-Drug Resistant Organisms: None Reported Date of last positivie culture/infection: 2002 MDRO Source:: STOOL Past Surgical History: Appendectomy, Breast Surgery, Cholecystectomy, Hysterectomy, Joint Replacement, Orthopedic Surgery Additional Past Surgical History / Comment(s): rt knee replacement x 3. ORIF left ANKLE.. BILATERAL SHOULDER SURGERY FOR SPUR REMOVAL. BILATERAL HEELS BONE SPUR REMOVAL AND PLANTAR FASCITIS SURGERY. left GREAT TOE BONE SPUR REMOVAL. rt breast biopsy, recent adm. for Lumpectomy states margins were not wide enough. Past Anesthesia/Blood Transfusion Reactions: Motion Sickness, Postoperative Nausea & Vomiting (PONV) Additional Past Anesthesia/Blood Transfusion Reaction / Comment(s): States was still having nausea after surgery. Past Psychological History: Anxiety Smoking Status: Former smoker Past Alcohol Use History: Occasional Additional Past Alcohol Use History / Comment(s): quit smoking 25 yrs ago, smoked for 20 yrs, 1 PPD Past Drug Use History: None Reported Objective - Vital Signs Vital signs: Vital Signs Temp 98.5 F 01/09/19 09:31 Pulse 78 01/09/19 09:31 Resp 18 01/09/19 09:31 BP 115/80 01/09/19 09:31 Pulse Ox 97 01/09/19 09:31 Intake & Output 01/08/19 01/09/19 01/09/19 18:59 06:59 18:59 Weight 85.275 kg - Exam BMI 36.7 - Constitutional General appearance: Present: obese - EENT Eyes: Present: EOMI ENT: Present: hearing grossly normal - Neck Details: no adenopathy Neck: Present: normal ROM - Respiratory Respiratory: bilateral: CTA - Cardiovascular Rhythm: regular Heart sounds: normal: S1, S2 - Gastrointestinal Gastrointestinal Comment(s): normal bowel sounds no organomegaly General gastrointestinal: Present: soft - Integumentary Integumentary Comment(s): incision well healed right breast Integumentary: Present: normal turgor - Musculoskeletal Musculoskeletal: Present: gait normal - Psychiatric Psychiatric: Present: A&O x's 3, appropriate affect - Additional findings Additional findings: Breast examination: Right breast: Well-healed scar from prior surgery, tenderness to palpation upper outer quadrant, fullness upper-outer quadrant related to scar and most likely BioSorb Right axilla: No adenopathy of concern Left breast: Ptotic, large, multiple positional exam no dominant masses or nodules of concern, grade 3 ptosis Left axilla: No adenopathy of concern Assessment and Plan Assessment: Impression: 1. Stage IIA right breast cancer, no evidence of recurrence 2. Pain and tenderness right breast felt to be related to scar, radiation changes, BioSorb 3. Asymmetry of breasts 4. Diabetes 5. Arthritis 6. BMI 38.5 7. Chronic neck/back pain may be related to asymmetry of breasts are large size of the left breast 8. Shoulder notching secondary to have a breast Plan: 1. Mastectomy right breast related to chronic pain 2. Reduction left breast secondary to large size and asymmetry 3. Medical clearance Risks and benefits of surgical intervention have been discussed at length with the patient and her . They understand that removal of the right breast may not alleviate the discomfort she is experiencing. They also understand that the risks associated with reduction and include but are not limited to the following bleeding, infection, reaction to the anesthetic. They understand that there may be a risk of decreased sensation of the nipple areolar complex, and necrosis of the nipple areolar complex. They've been given the option of seeing a plastic surgeon and do not wish to do so. We will therefore proceed with a right breast mastectomy and reduction left breast mammoplasty. Cc: Dr. Bowling
== END | disposition home or self-care (01) ==
LOC: WWCWWP 08:55
PROVIDERS: ATTEND Surgery
DX: Z53.9 Procedure and treatment not carried out, unspecified reason (principal)

== ENCOUNTER 2019-01-13 10:43 | Day surgery (SDC) | payer MEDICARE ==
[2019-01-09 11:40] VITALS: BMI 36.7
[~2019-01-13 10:43] MED LIST changes: -DEXAMETHASONE SOD PHOSPHATE 10 MG/ML 1 ML VIAL IV ONE; +HEPARIN SODIUM,PORCINE 5,000 UNIT/ML 1 ML VIAL SQ ONE; -LACTATED RINGERS 1,000 ML IV SCH; -ONDANSETRON 4 MG/2 ML VIAL IVP ONE
[2019-01-13 11:41] LABS: Glucose,Whole Blood 183 mg/dL (75-99)
[2019-01-13] MEDS: LACTATED RINGERS 1,000 ML IV SCH (11:45)
[2019-01-13] MEDS: DEXAMETHASONE SOD PHOSPHATE 10 MG/ML 1 ML VIAL IV ONE ×2 (11:48→21:13)
[2019-01-13] MEDS: ONDANSETRON 4 MG/2 ML VIAL IVP ONE ×3 (11:48→21:13)
[2019-01-13] MEDS: SCOPOLAMINE 1.5MG/72HR PATCH TRANSDERM ONE ×2 (11:49→21:14)
[2019-01-13] MEDS ORDERED: ACETAMINOPHEN TAB 500 MG TAB PO ONE (13:32)
[2019-01-13] MEDS ORDERED: HEPARIN SODIUM,PORCINE 5,000 UNIT/ML 1 ML VIAL SQ ONE (14:40)
[2019-01-13] MEDS ORDERED: ROCURONIUM BROMIDE 10 MG/ML 10 ML VIAL IV ONE (15:22)
[2019-01-13] MEDS ORDERED: SUCCINYLCHOLINE CHLORIDE 100 MG/5 ML SYR IV ONE (15:22)
[2019-01-13] MEDS ORDERED: LIDOCAINE 1% INJ 10MG/ML (20 ML MDV) ONE (15:22)
[2019-01-13] MEDS ORDERED: fentaNYL (PF) 50 MCG/ML 2 ML AMP ONE (15:22)
[2019-01-13] MEDS ORDERED: MIDAZOLAM 2 MG/2 ML VIAL ONE (15:22)
[2019-01-13] MEDS ORDERED: PROPOFOL 10 MG/ML 20 ML VIAL IV ONE (15:22)
[2019-01-13] MEDS ORDERED: SODIUM CHLORIDE 0.9% 50 ML with ceFAZolin 2,000 MG IV ONE ×2 (15:45)
[2019-01-13] MEDS ORDERED: LACTATED RINGERS 1,000 ML IV ONE ×4 (17:05→19:10)
[2019-01-13] MEDS ORDERED: ONDANSETRON 4 MG/2 ML VIAL IVP PRN (17:47)
[2019-01-13] MEDS ORDERED: NALOXONE 0.4 MG/ML 1 ML VIAL IV PRN (17:47)
--- NOTE | 2019-01-13 17:47 | P.OP ---
Date of Procedure: 01/13/19 Preoperative Diagnosis: Contracted painful right breast following lumpectomy/basilar placement/radiation treatment, macromastia left breast Postoperative Diagnosis: Right breast mastectomy, decided to stage left reduction procedure secondary to excoriation under the left breast/ and marked radiation changes right breast for which he wanted to this mastectomy site to heal prior to doing a reduction on the left Procedure(s) Performed: Right breast mastectomy Anesthesia: GEOFFREYA Surgeon: Ylois Wang Estimated Blood Loss (ml): 50 IV fluids (ml): 200 Pathology: other (Right breast) Condition: stable Disposition: floor Indications for Procedure: Right breast prior cancer, treated with lumpectomy, radiation therapy, patient has marked contraction and chronic pain in the right side. She has requested right breast mastectomy. Operative Findings: Fibrotic changes right breast, scar right breast, radiation changes right breast Description of Procedure: The patient is a 73-year-old white female status post right breast lumpectomy and radiation therapy in the past. She has had chronic pain in the right breast and wishes a mastectomy. Additionally she has macromastia on the left and we have considered a reduction mastopexy. I discussed with the patient preoperatively depending on the findings on the right may stage this into a reduction after the right side has healed. She understands this and wishes to proceed with a right mastectomy. Additionally the patient has excoriation on the right left breast and would like this to resolve prior to the operative procedure. The patient comes to the operating room and the area of both right and left left breast prepped and draped in a sterile fashion. The left breast preoperatively had been marked for a Moser pattern reduction mastopexy. However, preoperatively I discussed with the patient that depending on the findings on the right breast concern for wound healing and seroma formation we may decide to do a staged procedure with the left reduction done after the right-sided heel. Additionally it was noted that the inferior aspect of the left breast was excoriated, with some open wound at that site. We would like this to heal as well prior to doing the reduction mammoplasty. The right breast had superior and inferior markings placed on it for the mastectomy. The superior incision was performed. This was carried through the skin and subcutaneous tissue. This was elevated and the superior flap was developed using the electrocautery device. This was dissected down to the muscle of the chest wall. Following this the inferior flap was developed in a similar fashion. Particularly in the upper outer quadrant area as the tissue was thickened and fibrotic. It appeared to be somewhat swollen and edematous. The dissection was performed down to the medial aspect of the pectoralis major muscle. The breast was then dissected from medial to lateral off of the pectoralis muscle. Again it was edematous and swollen. Several vessels needed to be ligated. Dissection was performed to the level of the lateral border the pectoralis major muscle. There were several large lipomatous like lesions which were also divided in nature. These were removed with the specimen. The specimen was removed and superior and lateral sutures were placed. The wound was well irrigated. After assured that hemostasis was attained Surgicel and pyriform was placed. 2 CHESTER drains were placed one in the axillary area and one under the breast flaps. The drains were secured using nylon suture. The skin was then closed using 3-0 Vicryl suture followed by 4-0 Monocryl. The lateral area was necessary to do an inverted Y secondary to dog ear in this site. Following closure Mastisol and Steri-Strips were applied. A propafenone dressing was placed. The patient tolerated the procedure in stable condition. All instrument and sponge counts were correct at the end of the case.
[2019-01-13 18:29] LABS: Glucose,Whole Blood 216 mg/dL (75-99)
[2019-01-13] MEDS: HYDROmorphone 0.5 MG/0.5 ML SYRINGE IVP PRN ×2 (18:43→21:44)
[2019-01-13] MEDS ORDERED: INSULIN ASPART (NovoLOG) 100 UNIT/ML VIAL SQ ONE (18:59)
[2019-01-13] MEDS: SODIUM CHLORIDE 0.45% 1,000 ML IV SCH (21:38)
[2019-01-13] MEDS: NYSTATIN 100,000 UNIT/GM POWD 15 GM TOPICAL SCH (21:44)
[2019-01-14] MEDS: HEPARIN SODIUM,PORCINE 5,000 UNIT/ML 1 ML VIAL SQ SCH ×4 (00:22→23:50)
[2019-01-14] MEDS: HYDROcodone/APAP 5-325MG 1 EACH TAB PO PRN ×4 (00:42→19:26)
[2019-01-14] MEDS: HYDROmorphone 1 MG/ML 1 ML SYRINGE IVP PRN ×4 (02:37→21:10)
[2019-01-14] MEDS: LACTATED RINGERS 1,000 ML IV SCH (03:59)
[2019-01-14] MEDS: SODIUM CHLORIDE 0.45% 1,000 ML IV SCH (06:55)
[2019-01-14] MEDS ORDERED: PANTOPRAZOLE 40 MG TABLET PO PRN (08:27)
[2019-01-14 08:36] LABS: Basophils % (A) 0 %; Eosinophils # (A) 0.1 k/uL (0-0.7); Eosinophils % (A) 2 %; HCT 34.6 % (34.0-46.0); HGB 11.5 gm/dL (11.4-16.0); Lymphocytes # (A) 0.8 k/uL (1.0-4.8); Lymphocytes % (A) 13 %; MCH 31.3 pg (25.0-35.0); MCHC 33.2 g/dL (31.0-37.0); Mean Platelet Volume 7.6; Monocytes # (A) 0.2 k/uL (0-1.0); Monocytes % (A) 3 %; Neutrophils % (A) 81 %; Platelet Count 131 k/uL (150-450); RBC 3.68 m/uL (3.80-5.40); RDW 13.7 % (11.5-15.5); WBC 6.2 k/uL (3.8-10.6)
[2019-01-14] MEDS ORDERED: ALLOPURINOL 300 MG TAB PO SCH (09:00)
[2019-01-14] MEDS: ESCITALOPRAM 10 MG TAB PO SCH (09:13)
[2019-01-14] MEDS: glipiZIDE 5 MG TAB PO SCH ×3 (09:13→18:07)
[2019-01-14 09:15] LABS: ALT 15 U/L (9-52); AST 26 U/L (14-36); Albumin 3.4 g/dL (3.5-5.0); Alkaline Phosphatase 45 U/L (38-126); Anion Gap 9 mmol/L; Blood Urea Nitrogen 15 mg/dL (7-17); Calcium 8.6 mg/dL (8.4-10.2); Carbon Dioxide 20 mmol/L (22-30); Chloride 106 mmol/L (98-107); Glucose 157 mg/dL (74-99); Sodium 135 mmol/L (137-145); Total Bilirubin 0.8 mg/dL (0.2-1.3)
[2019-01-14 09:18] LABS: African American GFR (CKD) >90 (>60 ml/min/1.73 sqM)
[2019-01-14] MEDS: NYSTATIN 100,000 UNIT/GM POWD 15 GM TOPICAL SCH ×2 (09:19→21:10)
[2019-01-14 09:20] LABS: Potassium 4.7 mmol/L (3.5-5.1)
--- NOTE | 2019-01-14 11:39 | P.CONS ---
History of Present Illness - Reason for Consult Consult date: 01/14/19 Medical management Requesting physician: Yolis Wang - History of Present Illness This is a very pleasant 73-year-old female who presented for an elective right breast mastectomy with Dr. Pedro Stahl. Patient reports that she was diagnosed with breast cancer of the right breast in 2017 in which she underwent a lumpectomy and radiation. Patient reports she has been on having ongoing chr onic pain to the right breast and macromastia warranting a right breast mastectomy. Additional medical history includes diabetes mellitus, GERD, hyperlipidemia, osteoarthritis, pancreatitis, cholecystectomy and right knee replacement. Patient is currently postop day 1 patient has [address] ammon. Patient is currently resting comfortably in bed with mild discomfort to right chest wall. Patient denies any chest pain. Denies shortness of breath. Patient denies nausea vomiting or diarrhea. Patient denies any urinary burning or frequency. Review of Systems Please refer to HPI otherwise unremarkable Past Medical History Past Medical History: Cancer, Diabetes Mellitus, GERD/Reflux, Hyperlipidemia, Osteoarthritis (OA), Skin Disorder Additional Past Medical History / Comment(s): Migraines, hx. of pancreatitis, "inverted T waves" in past, rosacea, breast cancer right breast 2017. Last radiation 02/2017, History of Any Multi-Drug Resistant Organisms: C-DIFF Year Discovered:: 2002 MDRO Source:: STOOL Past Surgical History: Appendectomy, Bladder Surgery, Breast Surgery, Cholecystectomy, Hysterectomy, Joint Replacement, Orthopedic Surgery Additional Past Surgical History / Comment(s): rt knee replacement x 3. ORIF left ANKLE. BILATERAL SHOULDER SURGERY FOR SPUR REMOVAL. BILATERAL HEELS BONE SPUR REMOVAL AND PLANTAR FASCITIS SURGERY. left GREAT TOE BONE SPUR REMOVAL. 2017 Right breast lumpectomy x2 with radiation treatment. Colonoscopy 2018(4th) rt knee replacement x3 Past Anesthesia/Blood Transfusion Reactions: Motion Sickness, Postoperative Nausea & Vomiting (PONV) Additional Past Anesthesia/Blood Transfusion Reaction / Comm: States was still having nausea after surgery. Past Psychological History: Anxiety Smoking Status: Former smoker Past Alcohol Use History: Occasional Additional Past Alcohol Use History / Comment(s): quit smoking 1991, smoked for 20 yrs, 1 PPD Past Drug Use History: None Reported - Past Family History Sister(s) Family Medical History: Cancer Additional Family Medical History / Comment(s): Sister cervical and breast Father Family Medical History: Cancer Additional Family Medical History / Comment(s): bob ballesteros Mother Family Medical History: Cancer Additional Family Medical History / Comment(s): lung Medications and Allergies Home Medications Medication Instructions Recorded Confirmed Type RX: Allopurinol [Zyloprim] 300 mg PO MOWEFR 12/02/13 01/13/19 History RX: Aspirin 81 mg PO DAILY 12/02/13 01/13/19 History RX: metFORMIN HCL 500 mg PO TID 12/02/13 01/13/19 History Ergocalciferol (Vitamin D2) 50,000 unit PO TH 10/19/16 01/13/19 History [Vitamin D2] Escitalopram [Lexapro] 10 mg PO QAM 11/23/16 01/13/19 History Ezetimibe [Zetia] 10 mg PO HS 11/23/16 01/13/19 History Fioricet(Dose Unknown) 1 tab PO Q8HR PRN 11/23/16 01/13/19 History Ketorolac [Toradol] 10 mg PO Q8HR PRN 11/23/16 01/13/19 History RX: Pantoprazole Sodium 40 mg PO DAILY PRN 11/23/16 01/13/19 History Rosuvastatin [Crestor] 20 mg PO HS 11/23/16 01/13/19 History Letrozole [Femara] 2.5 mg PO HS 07/22/17 01/13/19 History RX: glipiZIDE [Glucotrol] 1 tab PO TID 07/22/17 01/13/19 History sitaGLIPtin PHOSPHATE [Januvia] 100 mg PO AC-LUNCH 01/09/19 01/13/19 History Allergies Allergy/AdvReac Type Severity Reaction Status Date / Time adhesive Allergy Intermediate Rash/Hives Verified 01/13/19 11:38 Physical Exam Vitals: Vital Signs Temp Pulse Resp BP Pulse Ox 01/14/19 08:15 99.0 F 67 18 107/68 93 L 01/14/19 00:15 98.5 F 60 18 106/60 97 01/14/19 00:00 60 18 01/13/19 21:34 64 18 140/74 95 01/13/19 20:45 70 16 137/83 95 01/13/19 20:15 64 18 137/79 99 01/13/19 20:00 72 16 141/76 100 01/13/19 19:45 98.5 F 76 16 145/81 99 01/13/19 19:30 66 16 142/72 97 01/13/19 19:01 74 16 143/67 96 01/13/19 18:45 83 16 146/69 94 L 01/13/19 18:30 72 16 140/69 98 01/13/19 18:06 88 16 129/65 96 01/13/19 11:31 97.8 F 74 20 170/74 98 Intake and Output 01/13/19 01/14/19 01/14/19 22:59 06:59 14:59 Intake Total 2250 Output Total 120 30 Balance 2130 -30 Intake: IV 2250 Output: Drainage 30 Drain A 15 Drain B 15 Urine 70 Estimated Blood Loss 50 Other: Voiding Method Toilet Toilet Toilet # Voids 1 1 Weight 85.275 kg Head normocephalic Neck supple Lungs clear to auscultation bilaterally no wheezing or crackles Heart regular rate and rhythm S1-S2, no rub or gallop Abdomen is soft nontender nondistend ed positive bowel sounds no hepatosplenomegaly Extremities no edema Neuro alert and orientated to 3 Right a small dressing is clean dry and intact [address] with small amount of bloody drainage and drains Results CBC & Chem 7: 01/14/19 08:18 01/14/19 08:18 Labs: Abnormal Lab Results - Last 24 Hours (Table) 01/13/19 01/13/19 01/14/19 Range/Units 11:40 18:27 08:18 RBC 3.68 L (3.80-5.40) m/uL Plt Count 131 L (150-450) k/uL Lymphocytes # 0.8 L (1.0-4.8) k/uL Sodium (137-145) mmol/L Carbon Dioxide (22-30) mmol/L Glucose (74-99) mg/dL POC Glucose (mg/dL) 183 H 216 H (75-99) mg/dL Total Protein (6.3-8.2) g/dL Albumin (3.5-5.0) g/dL 01/14/19 Range/Units 08:18 RBC (3.80-5.40) m/uL Plt Count (150-450) k/uL Lymphocytes # (1.0-4.8) k/uL Sodium 135 L (137-145) mmol/L Carbon Dioxide 20 L (22-30) mmol/L Glucose 157 H (74-99) mg/dL POC Glucose (mg/dL) (75-99) mg/dL Total Protein 6.0 L (6.3-8.2) g/dL Albumin 3.4 L (3.5-5.0) g/dL Assessment and Plan Assessment: 1. Status post right breast mastectomy. Patient is currently postop day 1. CHESTER drains in place 2. History of breast cancer diagnosed in 2017 in which he underwent right breast lumpectomy and radiation patient is in remission no current treatment at this time 3. History of diabetes mellitus. Patient started on sliding scale insulin. Metformin currently on hold 4. History of GERD 5. History of osteoarthritis with total right knee replacement. 6. History of hyperlipidemia. Patient seen on statin and zetia 7. Left breast excoriation. Nystatin has been ordered DVT prophylaxis heparin. GI prophylaxis Pepcid Thank you for this consultation we'll continue to follow patient closely throughout stay Time with Patient: Greater than 30 (Greater than 60% of the total time spent in counseling and coordination of care. I performed an examination of the patient and discussed their management with the Nurse Practitioner. I have reviewed the Nurse Practitioner's notes and agree with the documented findings and plan of care)
[2019-01-14 12:31] LABS: Glucose,Whole Blood 133 mg/dL (75-99)
[2019-01-14] MEDS: INSULIN ASPART (NovoLOG) 100 UNIT/ML VIAL SQ SCH ×3 (12:37→21:09)
--- NOTE | 2019-01-14 14:52 | P.PN ---
Subjective Progress Note Date: 01/14/19 Principal diagnosis: POD #1 Patient is postop day #1 from right breast lumpectomy. She is doing well at this time with no complaints. She has a Prolene a drain in place. CHESTER output is serous in nature. CHESTER A 15 mL CHESTER B 15 mL She is tolerating diet without difficulty. Objective - Vital Signs Vital signs: Vital Signs Temp 98.2 F 01/14/19 11:58 Pulse 66 01/14/19 11:58 Resp 16 01/14/19 11:58 BP 93/56 01/14/19 11:58 Pulse Ox 96 01/14/19 11:58 Intake & Output 01/13/19 01/14/19 01/14/19 18:59 06:59 18:59 Intake Total 2550 200 Output Total 120 30 Balance 2430 170 Weight 85.275 kg 85.275 kg Intake: IV 2550 200 Output: Drainage 30 Drain A 15 Drain B 15 Urine 70 Estimated Blood Loss 50 Other: Voiding Method Toilet Toilet # Voids 1 - Exam BMI 36.7 - Constitutional General appearance: Present: obese - EENT Eyes: Present: EOMI ENT: Present: hearing grossly normal - Respiratory Respiratory: bilateral: CTA - Cardiovascular Rhythm: regular Heart sounds: normal: S1, S2 - Integumentary Integumentary: Present: normal turgor - Psychiatric Psychiatric: Present: A&O x's 3, appropriate affect, intact judgment & insight - Additional findings Additional findings: Previna wound system intact no evidence of any erythema around this - Labs CBC & Chem 7: 01/14/19 08:18 01/14/19 08:18 Labs: Abnormal Lab Results - Last 24 Hours (Table) 01/13/19 01/14/19 01/14/19 Range/Units 18:27 08:18 08:18 RBC 3.68 L (3.80-5.40) m/uL Plt Count 131 L (150-450) k/uL Lymphocytes # 0.8 L (1.0-4.8) k/uL Sodium 135 L (137-145) mmol/L Carbon Dioxide 20 L (22-30) mmol/L Glucose 157 H (74-99) mg/dL POC Glucose (mg/dL) 216 H (75-99) mg/dL Total Protein 6.0 L (6.3-8.2) g/dL Albumin 3.4 L (3.5-5.0) g/dL 01/14/19 Range/Units 12:30 RBC (3.80-5.40) m/uL Plt Count (150-450) k/uL Lymphocytes # (1.0-4.8) k/uL Sodium (137-145) mmol/L Carbon Dioxide (22-30) mmol/L Glucose (74-99) mg/dL POC Glucose (mg/dL) 133 H (75-99) mg/dL Total Protein (6.3-8.2) g/dL Albumin (3.5-5.0) g/dL Assessment and Plan Assessment: Impression/plan: 1. Patient postop day #1 right breast lumpectomy 2. Patient is going to stay for pain control more day 3. Continue present therapy
[2019-01-14 17:36] LABS: Glucose,Whole Blood 204 mg/dL (75-99)
[2019-01-14 20:34] LABS: Glucose,Whole Blood 215 mg/dL (75-99)
[2019-01-14] MEDS ORDERED: EZETIMIBE 10 MG TAB PO SCH (21:00)
[2019-01-14] MEDS ORDERED: LETROZOLE 2.5 MG TAB PO SCH (21:00)
[2019-01-14] MEDS ORDERED: ATORVASTATIN 40 MG TAB PO SCH (21:00)
[2019-01-15] MEDS: SODIUM CHLORIDE 0.45% 1,000 ML IV SCH (03:27)
[2019-01-15] MEDS: HYDROmorphone 1 MG/ML 1 ML SYRINGE IVP PRN (05:03)
[2019-01-15 06:42] LABS: Glucose,Whole Blood 139 mg/dL (75-99)
[2019-01-15] MEDS: INSULIN ASPART (NovoLOG) 100 UNIT/ML VIAL SQ SCH ×2 (06:51→12:42)
[2019-01-15] MEDS: glipiZIDE 5 MG TAB PO SCH ×2 (06:52→12:37)
[2019-01-15] MEDS: HEPARIN SODIUM,PORCINE 5,000 UNIT/ML 1 ML VIAL SQ SCH (07:35)
[2019-01-15] MEDS: NYSTATIN 100,000 UNIT/GM POWD 15 GM TOPICAL SCH (07:42)
[2019-01-15] MEDS: HYDROcodone/APAP 5-325MG 1 EACH TAB PO PRN ×2 (07:53→12:12)
[2019-01-15 08:08] LABS: African American GFR (CKD) >90 (>60 ml/min/1.73 sqM); Albumin 3.1 g/dL (3.5-5.0); Anion Gap 6 mmol/L; Blood Urea Nitrogen 14 mg/dL (7-17); Calcium 8.5 mg/dL (8.4-10.2); Carbon Dioxide 25 mmol/L (22-30); Chloride 106 mmol/L (98-107); Glucose 132 mg/dL (74-99); Sodium 137 mmol/L (137-145); Total Bilirubin 0.6 mg/dL (0.2-1.3); Total Protein 5.5 g/dL (6.3-8.2)
[2019-01-15 08:12] LABS: ALT 27 U/L (9-52); AST 20 U/L (14-36); Alkaline Phosphatase 45 U/L (38-126); Potassium 3.9 mmol/L (3.5-5.1)
[2019-01-15 08:16] LABS: Basophils # (A) 0.1 k/uL (0-0.2); Basophils % (A) 2 %; Eosinophils # (A) 0.1 k/uL (0-0.7); Eosinophils % (A) 2 %; HCT 33.5 % (34.0-46.0); HGB 10.9 gm/dL (11.4-16.0); Lymphocytes # (A) 1.1 k/uL (1.0-4.8); Lymphocytes % (A) 24 %; MCH 30.8 pg (25.0-35.0); MCHC 32.7 g/dL (31.0-37.0); MCV 94.3 fL (80.0-100.0); Monocytes # (A) 0.3 k/uL (0-1.0); Monocytes % (A) 7 %; Neutrophils # (A) 2.9 k/uL (1.3-7.7); Neutrophils % (A) 65 %; Platelet Count 109 k/uL (150-450); RBC 3.55 m/uL (3.80-5.40); RDW 13.7 % (11.5-15.5); WBC 4.5 k/uL (3.8-10.6)
[2019-01-15] MEDS: ESCITALOPRAM 10 MG TAB PO SCH (08:16)
[2019-01-15] MEDS ORDERED: FAMOTIDINE 20 MG TAB PO SCH (09:00)
[2019-01-15] MEDS ORDERED: ERGOCALCIFEROL 50,000 UNIT CAP PO SCH (09:00)
--- NOTE | 2019-01-15 09:33 | P.PN ---
Subjective Progress Note Date: 01/15/19 Principal diagnosis: POD #2 Patient is postop day #2 from right breast lumpectomy. She is doing well at this time. She has a propafenone drain in place and has had some leakage at the drain which has been reinforced. CHESTER output is serous in nature. CHESTER A 25 mL CHESTER B 60 mL There is no evidence of hematoma at incision site There is no evidence of infection The drainage is serous and dark in nature She is tolerating diet without difficulty. Objective - Vital Signs Vital signs: Vital Signs Temp 98.2 F 01/15/19 07:38 Pulse 76 01/15/19 07:38 Resp 16 01/15/19 07:38 BP 95/57 01/15/19 07:38 Pulse Ox 98 01/15/19 07:38 Intake & Output 01/14/19 01/15/19 01/15/19 18:59 06:59 18:59 Intake Total 600 Output Total 60 60 Balance 540 -60 Intake: Oral 600 Output: Drainage 60 60 Drain A 20 10 Drain B 40 50 Other: Voiding Method Toilet Toilet # Voids 1 2 - Exam BMI 36.7 - Constitutional General appearance: Present: obese - EENT Eyes: Present: EOMI ENT: Present: hearing grossly normal - Respiratory Respiratory: bilateral: CTA - Cardiovascular Rhythm: regular Heart sounds: normal: S1, S2 - Integumentary Integumentary: Present: normal turgor - Psychiatric Psychiatric: Present: A&O x's 3 - Additional findings Additional findings: Incision site right breast/protein a drain in place this is well compressed with suction no Evidence of infection or cellulitis around the drain dressing - Labs CBC & Chem 7: 01/15/19 07:28 01/15/19 07:28 Labs: Abnormal Lab Results - Last 24 Hours (Table) 01/14/19 01/14/19 01/14/19 Range/Units 12:30 17:34 20:29 RBC (3.80-5.40) m/uL Hgb (11.4-16.0) gm/dL Hct (34.0-46.0) % Plt Count (150-450) k/uL Glucose (74-99) mg/dL POC Glucose (mg/dL) 133 H 204 H 215 H (75-99) mg/dL Total Protein (6.3-8.2) g/dL Albumin (3.5-5.0) g/dL 01/15/19 01/15/19 01/15/19 Range/Units 06:39 07:28 07:28 RBC 3.55 L (3.80-5.40) m/uL Hgb 10.9 L (11.4-16.0) gm/dL Hct 33.5 L (34.0-46.0) % Plt Count 109 L (150-450) k/uL Glucose 132 H (74-99) mg/dL POC Glucose (mg/dL) 139 H (75-99) mg/dL Total Protein 5.5 L (6.3-8.2) g/dL Albumin 3.1 L (3.5-5.0) g/dL Assessment and Plan Assessment: Impression/plan: 1. Patient postop day #2 right breast mastectomy 2. Patient is going to be discharged home today 3. Continue present care at home 4. Home care will be involved as well
--- NOTE | 2019-01-15 09:34 | P.DS ---
Providers Attending physician: Yolis Wang Consults: 01/13/19 17:50 Consult Physician Routine Consulting Provider: Henry Bowling Consult Reason/Comments: medical managment Do you want consulting provider notified?: Yes Primary care physician: [facility] Hospital Course: Patient is a 73-year-old white female status post right breast mastectomy. She is postop day #2. At this time she is doing well and is to be discharged home to follow as an outpatient. Plan - Discharge Summary Discharge Rx Participant: Yes New Discharge Prescriptions: No Action metFORMIN HCL 500 mg PO TID Aspirin 81 mg PO DAILY Allopurinol [Zyloprim] 300 mg PO MOWEFR Ergocalciferol (Vitamin D2) [Vitamin D2] 50,000 unit PO TH Ketorolac [Toradol] 10 mg PO Q8HR PRN PRN Reason: migraines Ezetimibe [Zetia] 10 mg PO HS Rosuvastatin [Crestor] 20 mg PO HS Escitalopram [Lexapro] 10 mg PO QAM Fioricet(Dose Unknown) 1 tab PO Q8HR PRN PRN Reason: migraines Pantoprazole Sodium 40 mg PO DAILY PRN PRN Reason: Heartburn glipiZIDE [Glucotrol] 1 tab PO TID Letrozole [Femara] 2.5 mg PO HS sitaGLIPtin PHOSPHATE [Januvia] 100 mg PO AC-LUNCH Discharge Medication List Allopurinol [Zyloprim] 300 mg PO MOWEFR 12/02/13 [History] Aspirin 81 mg PO DAILY 12/02/13 [History] metFORMIN HCL 500 mg PO TID 12/02/13 [History] Ergocalciferol (Vitamin D2) [Vitamin D2] 50,000 unit PO TH 10/19/16 [History] Escitalopram [Lexapro] 10 mg PO QAM 11/23/16 [History] Ezetimibe [Zetia] 10 mg PO HS 11/23/16 [History] Fioricet(Dose Unknown) 1 tab PO Q8HR PRN 11/23/16 [History] Ketorolac [Toradol] 10 mg PO Q8HR PRN 11/23/16 [History] Pantoprazole Sodium 40 mg PO DAILY PRN 11/23/16 [History] Rosuvastatin [Crestor] 20 mg PO HS 09/15/17 [History] Letrozole [Femara] 2.5 mg PO HS 07/22/17 [History] glipiZIDE [Glucotrol] 1 tab PO TID 07/22/17 [History] sitaGLIPtin PHOSPHATE [Januvia] 100 mg PO AC-LUNCH 01/09/19 [History] Follow up Appointment(s)/Referral(s): [facility], [NON-STAFF] - 1-2 Days Yolis Wang MD [STAFF PHYSICIAN] - 1 Week Patient Instructions/Handouts: Willie-Morrissey Drain Care (GEN), Mastectomy (GEN) Activity/Diet/Wound Care/Special Instructions: No lifting. No house work. No tub baths. No driving. Drink plenty of fluids. Call Dr Wang if you develop a fever, chills, increase in pain, brown draining in your CHESTER drains, or if you have any other questions or concerns. May shower tomorrow. Keep your dressing clean and dry. Empty the CHESTER drains 2 to 3 times a day and record on the sheet provided. Keep your appointment with Dr Wang for follow up. [facility] Care Discharge Disposition: HOME SELF-CARE
--- NOTE | 2019-01-15 11:09 | P.PN ---
Subjective Progress Note Date: 01/15/19 Principal diagnosis: This is a very pleasant 73-year-old female who presented for an elective right breast mastectomy with Dr. Pedro Stahl. Patient reports that she was diagnosed w ith breast cancer of the right breast in 2016 in which she underwent a lumpectomy and radiation. Patient reports she has been on having ongoing chronic pain to the right breast and macromastia warranting a right breast mastectomy. Additional medical history includes diabetes mellitus, GERD, hyperl ipidemia, osteoarthritis, pancreatitis, cholecystectomy and right knee replacement. Patient is currently postop day 1 patient has [address] Patient is currently resting comfortably in bed with mild discomfort to right chest wall. Patient denies any chest pain. Denies shortness of breath. Patient denies nausea vomiting or diarrhea. Patient denies any urinary burning or frequency. On 01/15/2018 patient is POD 2, up moving around in the room. Patient reports feeling very good and feels her pain is well-controlled. [address] to the right chest along with a portable wound VAC. Patient complains of mild itching, likely from the pain medication we will consider Benadryl. He Patient denies any chest pain, shortness of breath. Patient denies any nausea vomiting and diarrhea. Patient denies any urinary burning or frequency. She is tolerating a diet. She states that she feels ready to home to. Objective - Vital Signs Vital signs: Vital Signs Temp 98.2 F 01/15/19 07:38 Pulse 76 01/15/19 07:38 Resp 16 01/15/19 07:38 BP 109/68 01/15/19 09:53 Pulse Ox 98 01/15/19 07:38 Intake & Output 01/14/19 01/15/19 01/15/19 18:59 06:59 18:59 Intake Total 600 Output Total 60 60 Balance 540 -60 Intake: Oral 600 Output: Drainage 60 60 Drain A 20 10 Drain B 40 50 Other: Voiding Method Toilet Toilet Toilet # Voids 1 2 - Exam Head normocephalic Neck supple Lungs clear to auscultation bilaterally no wheezing or crackles Heart regular rate and rhythm S1-S2, no rub or gallop Abdomen is soft nontender, obese, positive bowel sounds no hepatosplenomegaly Right chest wall incision clean dry and intact, wound VAC in place, CHESTER drain 2. Left breast fold excoriated, interdry in place Extremities no edema Neuro alert and orientated to 3 - Labs CBC & Chem 7: 01/15/19 07:28 01/15/19 07:28 Labs: Abnormal Lab Results - Last 24 Hours (Table) 01/14/19 01/14/19 01/14/19 Range/Units 12:30 17:34 20:29 RBC (3.80-5.40) m/uL Hgb (11.4-16.0) gm/dL Hct (34.0-46.0) % Plt Count (150-450) k/uL Glucose (74-99) mg/dL POC Glucose (mg/dL) 133 H 204 H 215 H (75-99) mg/dL Total Protein (6.3-8.2) g/dL Albumin (3.5-5.0) g/dL 01/15/19 01/15/19 01/15/19 Range/Units 06:39 07:28 07:28 RBC 3.55 L (3.80-5.40) m/uL Hgb 10.9 L (11.4-16.0) gm/dL Hct 33.5 L (34.0-46.0) % Plt Count 109 L (150-450) k/uL Glucose 132 H (74-99) mg/dL POC Glucose (mg/dL) 139 H (75-99) mg/dL Total Protein 5.5 L (6.3-8.2) g/dL Albumin 3.1 L (3.5-5.0) g/dL Assessment and Plan Assessment: 1. Status post right breast mastectomy. Patient is currently postop day 2. CHESTER drains in place. Pain is well controlled with [place], patient does notice some itching we will add Benadryl. Patient has been cleared for discharge by surgical services. Patient will be discharged home. Along with community health. 2. History of breast cancer diagnosed in 2017 in which he underwent right breast lumpectomy and radiation patient is in remission no current treatment at this time 3. History of diabetes mellitus. Patient started on sliding scale insulin. Metformin currently on hold 4. History of GERD 5. History of osteoarthritis with total right knee replacement. 6. History of hyperlipidemia. Patient seen on statin and zetia 7. Left breast excoriation. Nystatin has been ordered. We'll send a prescription for nystatin powder for home. 8. Thrombocytopenia. Platelets 109. Will have patient follow-up outpatient DVT prophylaxis heparin. GI prophylaxis Pepcid Thank you for this consultation we'll continue to follow patient closely throughout stay I performed an examination of the patient and discussed their management with the Nurse Practitioner. I have reviewed the Nurse Practitioner's notes and agree with the documented findings and plan of care
[2019-01-15 12:44] LABS: Glucose,Whole Blood 140 mg/dL (75-99)
[2019-01-15 12:52] VITALS: BP 107/70; PULSE 66; RESP 8; TEMP 97.3
== END 2019-01-15 13:40 | disposition home or self-care (01) ==
LOC: OR 10:43 → 6PED 18:08 → OR 01-15 13:40
PROVIDERS: ATTEND Surgery
DX: N60.11 Diffuse cystic mastopathy of right breast (principal); N62 Hypertrophy of breast; Z85.3 Personal history of malignant neoplasm of breast; E11.9 Type 2 diabetes mellitus without complications; E78.5 Hyperlipidemia, unspecified; F41.9 Anxiety disorder, unspecified; G89.29 Other chronic pain; K21.9 Gastro-esophageal reflux disease without esophagitis; M19.90 Unspecified osteoarthritis, unspecified site; N64.4 Mastodynia; Z79.4 Long term (current) use of insulin; Z79.82 Long term (current) use of aspirin; Z87.891 Personal history of nicotine dependence; Z90.11 Acquired absence of right breast and nipple; Z90.49 Acquired absence of other specified parts of digestive tract; Z96.651 Presence of right artificial knee joint
CPT/HCPCS: 19301; 80053 ×2; 85025 ×2; 88307; J2250; J1644 ×3; J1100; J2405; J0690; J2001; J3010; J1170 ×3; J0330; J2704

== ENCOUNTER → 2019-01-20 | Outpatient (CLI) | payer MEDICARE ==
--- NOTE | 2019-01-20 17:19 | P.PN ---
Progress Note - Text Progress Note Date: 01/20/19 The patient is status post right breast mastectomy. This was performed one week ago. Pathology reveals benign breast tissue with scar tissue present. The patient had a prevena wound VAC system in place. This was removed today. The mastectomy flaps are nicely adherent to the chest wall. The CHESTER drains are serous in nature and each put out approximately 20 mL of fluid. The patient had not been keeping this dissection however. She had had some drainage around the drains and did not rely she needed to keep these to suction. The incision is clean and dry with no evidence of infection. At the CHESTER drain sites there is some erythema which is most likely reactive in nature. Physical exam: Incision clean and dry with some erythema at the CHESTER drain sites Mastectomy skin Flaps adherent to chest wall Impression: 1. Pathology right mastectomy benign 2. Patient with decreased pain after mastectomy from breast radiation changes/fibrosis 3. Erythema at drain sites Plan: 1. Continue CHESTER drains as the patient was not patient is to suction before 2. Keflex secondary to erythema at drain sites 3. If CHESTER output is minimal consider DC drains later this week otherwise was likely DC next week
[2019-01-20 17:26] VITALS: BP 144/85; PULSE 80; RESP 18; TEMP 97.9; BMI 36.6
== END | disposition home or self-care (01) ==
LOC: WWCWWP 15:40
PROVIDERS: ATTEND Surgery
DX: Z53.9 Procedure and treatment not carried out, unspecified reason (principal)

== ENCOUNTER → 2019-01-29 | Outpatient (CLI) | payer MEDICARE ==
[2019-01-29 09:17] VITALS: BP 162/74; PULSE 70; RESP 18; TEMP 97.7; BMI 36.5
--- NOTE | 2019-01-29 09:43 | P.PN ---
Progress Note - Text Progress Note Date: 01/29/19 Angelina is a 73 -year-old white female status post right breast mastectomy on . Post procedure she has done well. This was for chronic breast pain after a lumpectomy Nov 2016, followed by radiation. The patient status post mastectomy has no complaints related to the surgery. She has [address] both a putting out less than 30 mL per day for the last several days. The drainage is serous in nature. Persistent fungal infection under the left breast. [place] [address]. She had additional views of the left breast and a2 919. The additional views were felt to be benign and repeat mammogram in October 2019 was recommended. Physical exam: Incision clean and dry, no evidence of infection CHESTER drains serous bilateral Impression/Plan 1. Patient doing well status post mastectomy 2. Patient will have symmetry procedure done in the near future 3. CHESTER drains to be removed 4. Continue to follow with medical and radiation oncology 5. follow up in one month prior to trip to [place] 6. nystatin under the left breast as needed CC: Dash
== END ==
LOC: WWCWWP 09:05
PROVIDERS: ATTEND Surgery
DX: Z53.9 Procedure and treatment not carried out, unspecified reason (principal)

== ENCOUNTER → 2019-02-09 | Outpatient (CLI) | payer MEDICARE ==
[2019-02-09 09:49] VITALS: BP 129/83; PULSE 70; RESP 18; TEMP 98
--- NOTE | 2019-02-09 09:56 | P.PN ---
Progress Note - Text Progress Note Date: 02/09/19 Angelina is a 73-year-old white female status post [place] mastectomy [place] [id number]. Postprocedure she did well and was seen on 1120 119. At that time her CHESTER drains were removed. The patient since then has developed a seroma on the right chest wall. She is not complaining of any fever or chills. She was noted to have a fungal infection to the contralateral breast and was using nystatin. Physical exam: Lungs: Clear Heart: Regular rate and rhythm Incision: Clean and dry no evidence of infection Seroma right chest wall Left breast: Improvement of fungal infection under her left breast Impression/plan: 1. Patient doing well status post mastectomy, right chest wall seroma, aspiration of seroma 2. Continue follow with medical and radiation oncology 3. Improvement of fungal infection under her left breast CC: Dash
--- NOTE | 2019-02-09 09:59 | P.PCN ---
Date of Procedure: 02/09/19 Preoperative Diagnosis: Seroma right chest wall Postoperative Diagnosis: same Procedure(s) Performed: aspiration of seroma Surgeon: Yolis Wang Pathology: none sent Condition: stable Disposition: same day Indications for Procedure: Seroma right chest wall status post mastectomy Description of Procedure: The right chest wall incision area was dressed and he was noted to be a seroma present. The area was prepped using alcohol. An 18-gauge needle on a 60 mL syringe was inserted into the area of the seroma. Approximately 270 mL of straw-colored fluid was obtained with complete resolution of the seroma. The patient tolerated the procedure in stable condition. The patient will follow up in approximately 3 weeks. If the seroma returns sooner and become symptomatic the patient will follow up sooner. The patient was instructed to wear a bra or Vega wrap to act as a pressure dressing over the area of the chest wall.
--- NOTE | 2019-02-27 11:54 | P.PN ---
Subjective Progress Note Date: 02/27/19 Angelina is a 73-year-old white female status [place] mastectomy [place] [id number]. Postprocedure she did well and was seen on [id number]. At that time her CHESTER drains were removed. The patient since then developed a seroma on the right chest wall. This was drained on 02-09-19. 270 cc of fluid were drained. She is not complaining of any fever or chills. This swelling has returned but not as large. She was noted to have a fungal infection under the contralateral breast and is using nystatin. This has improved. Physical exam: Lungs: Clear Heart: Regular rate and rhythm Incision: Clean and dry no evidence of infection Seroma right chest wall Left breast: Improvement of fungal infection under her left breast Impression/plan: 1. Patient doing well status post mastectomy, right chest wall seroma, aspiration of seroma 2. Continue follow with medical and radiation oncology 3. Improvement of fungal infection under her left breast CC: Dr. Bowling Encounter 15 minutes > 50% planning and counselling Objective - Vital Signs Vital signs: Vital Signs Temp 98 F 02/09/19 09:43 Pulse 70 02/09/19 09:43 Resp 18 02/09/19 09:43 BP 129/83 02/09/19 09:43 Pulse Ox 98 02/09/19 09:43
--- NOTE | 2019-02-27 11:59 | P.PCN ---
Date of Procedure: 02/27/19 Preoperative Diagnosis: seroma of the right chest wall Postoperative Diagnosis: same Procedure(s) Performed: aspiration of seroma Surgeon: Yolis Wang Pathology: none sent Condition: stable Disposition: same day Indications for Procedure: seroma right chest wall Operative Findings: 220 cc straw colored fluid, resolution of seroma Description of Procedure: The right chest wall was prepped using alcohol. An 18 G 60 cc syringe was used to aspirate the seroma. The needle was inserted and approximately 220 mL of straw-colored fluid was removed. It was necessary to move the location of the needle several times to completely aspirate the seroma. The seroma was completely aspirated. The patient tolerated procedure in stable condition. The fluid was not sent for cytology. The patient is going to [place]. She will follow up after she returns. She is going to have a reduction of the contralateral breast for symmetry procedure. This is going to be scheduled for the spring.
== END | disposition home or self-care (01) ==
LOC: WWCWWP 09:37
PROVIDERS: ATTEND Surgery
DX: Z53.9 Procedure and treatment not carried out, unspecified reason (principal)

== ENCOUNTER → 2019-02-27 | Outpatient (CLI) | payer MEDICARE ==
[2019-02-27 11:27] VITALS: BP 138/79; PULSE 73; RESP 18; TEMP 98.5
== END ==
LOC: WWCWWP 10:24
PROVIDERS: ATTEND Surgery
DX: Z53.9 Procedure and treatment not carried out, unspecified reason (principal)

== ENCOUNTER → 2019-07-17 | Outpatient (CLI) | payer MEDICARE ==
[2019-07-17 12:07] VITALS: BP 91/52; PULSE 74; RESP 18; TEMP 98.2
--- NOTE | 2019-07-17 12:47 | P.PN ---
Subjective Progress Note Date: 07/17/19 Principal diagnosis: Stage IIA [id number]/shiv- right breast cancer Patient is a 72 year old white female status post right breast lumpectomy November and re-excision December of 2016. Patient had radiation therapy. Patient did not have any chemotherapy, but she had been treated with letrazole. Bilateral mammogram was done on 10-27-18. Special views of the left breast recommended. Additional views of the left breast were obtained on 11-06-18. These were felt to be benign and repeat mammogram in October 2019. The patient continues to have discomfort in her right breast. She can still feel the BioSorb. The tenderness is at the 12 o'clock position and extends under the right arm. There is a low-grade constant ache. She has no fever chills or evidence of infection. No history of any trauma. The patient continues on letrazole. Patient has had constant persistent pain in the right breast. The pain was felt to be multifactorial and was most likely related to the scar tissue, radiation, and BioSorb. The patient wished the right breast to be removed. We discussed that this may or may not resolve her pain she understood this and still wished the right breast to be removed. Secondary to the fact that the left side is a 44 double D she will be very asymmetric and wished to have a reduction on the left side. Her bilateral mammogram was on . This revealed right breast postsurgical and post-therapeutic changes. Additional views of the left breast recommended these were performed and felt to be benign BIRADS 2. She has had recent radiograph of the left side which was benign BIRADS 2. She underwent right mastectomy on 01-13-2019. Pathology revealed benign breast tissue with scar tissue present. Postprocedure the patient developed a seroma at that site and required aspiration on several occasions. The patient had the area aspirated in [place] on March 23, 180 CC red tinged and on April 20, 120 CC yellow. She has not had it aspirated since that time and states that it is increased in full arrest and wishes to have it aspirated today. family history: father: multiple myloma mother; lung cancer sister: breast cancer maternal aunt: melanoma maternal uncle: brain cancer maternal uncle: laryengeal cancer paternal aunt: "ear" cancer paternal uncle: Laryngeal cancer patient: 4 skin cancers past surgical history; 1. right breast cancer 2. tubal/hysterectomy 3. gallbladder 4. right knee 3 times 5. right leg fracture 6. bilateral shoulder bone spurs Medical History: 1. diabetic (type 2) 2. arthritis 3. history of skin cancer no melanoma Social History: smoke: stopped 27 years ago alcohol: wine three times/week drugs: none - EENT Eyes: denies blurred vision, denies bulging eye, denies decreased vision, denies diplopia, denies discharge Ears: deny: decreased hearing, ear discharge, earache, tinnitus Ears, nose, mouth and throat: Reports as per HPI - Breasts Breasts: bilateral: as per HPI - Cardiovascular Cardiovascular: Reports as per HPI - Respiratory Respiratory: Denies cough - Gastrointestinal Gastrointestinal: Denies abdominal pain, Denies diarrhea, Denies nausea, Denies vomiting - Genitourinary (Female) Genitourinary: Denies dysuria, Denies hematuria - Genitourinary (Male) Genitourinary: Denies dysuria, Denies hematuria - Musculoskeletal Comment: arthritis - Integumentary Comment: skin cancer times four - Neurological Comment: migrains Neurological: Denies numbness, Denies weakness - Psychiatric Psychiatric: Denies anxiety, Denies depression - Endocrine Comment: diabetes - Hematologic/Lymphatic Comment: takes aspirin - Allergic/Immunologic Allergic/Immunologic: Reports seasonal allergies Past Medical History Past Medical History: Cancer, Diabetes Mellitus, GERD/Reflux, Hyperlipidemia, Osteoarthritis (OA), Skin Disorder Additional Past Medical History / Comment(s): Migraines, hx. of pancreatitis, "inverted T waves" in past, rosacea, skin cancer, breast cancer, c-diff yrs ago History of Any Multi-Drug Resistant Organisms: None Reported Date of last positivie culture/infection: 2002 MDRO Source:: STOOL Past Surgical History: Appendectomy, Breast Surgery, Cholecystectomy, Hysterectomy, Joint Replacement, Orthopedic Surgery Additional Past Surgical History / Comment(s): rt knee replacement x 3. ORIF left ANKLE.. BILATERAL SHOULDER SURGERY FOR SPUR REMOVAL. BILATERAL HEELS BONE SPUR REMOVAL AND PLANTAR FASCITIS SURGERY. left GREAT TOE BONE SPUR REMOVAL. rt breast biopsy, recent adm. for Lumpectomy states margins were not wide enough. Past Anesthesia/Blood Transfusion Reactions: Motion Sickness, Postoperative Nausea & Vomiting (PONV) Additional Past Anesthesia/Blood Transfusion Reaction / Comment(s): States was still having nausea after surgery. Past Psychological History: Anxiety Smoking Status: Former smoker Past Alcohol Use History: Occasional Additional Past Alcohol Use History / Comment(s): quit smoking 25 yrs ago, smoked for 20 yrs, 1 PPD Past Drug Use History: None Reported Objective - Vital Signs Vital signs: Vital Signs Temp 98.2 F 07/17/19 12:00 Pulse 74 07/17/19 12:00 Resp 18 07/17/19 12:00 BP 91/52 07/17/19 12:00 Pulse Ox 98 07/17/19 12:00 Intake & Output 07/16/19 07/17/19 07/17/19 18:59 06:59 18:59 Weight 84.822 kg - Exam BMI 36.5 - Constitutional General appearance: Present: obese - EENT Eyes: Present: EOMI ENT: Present: hearing grossly normal - Neck Neck: Present: normal ROM - Respiratory Respiratory: bilateral: CTA - Cardiovascular Rhythm: regular Heart sounds: normal: S1, S2 - Gastrointestinal General gastrointestinal: Present: normal bowel sounds, soft - Integumentary Integumentary: Present: normal turgor - Musculoskeletal Musculoskeletal: Present: gait normal - Psychiatric Psychiatric: Present: A&O x's 3, appropriate affect, intact judgment & insight - Additional findings Additional findings: breast exam: BRA 44 DD inspection: Chest wall swollen to be secondary to seroma, no evidence of recurrent cancer Right axilla: No adenopathy of concern Left breast: Multi-positional exam no dominant masses or nodules of concern Assessment and Plan Assessment: Impression: 1. Recurrent seroma right chest wall 2. Fibrocystic changes left breast Plan: 1. Aspiration seroma right chest wall 2. Left breast mammogram and October 2019 2. Patient had reduction mammoplasty and right side in the future CC: Dr. Bowling encounter 20 minutes greater than 50% of time in planning and counselling Time with Patient: Less than 30
--- NOTE | 2019-07-17 12:49 | P.PCN ---
Date of Procedure: 07/17/19 Preoperative Diagnosis: Seroma right chest wall Postoperative Diagnosis: Same Procedure(s) Performed: Aspiration seroma Surgeon: Yolis Wang Pathology: none sent Condition: stable Disposition: same day Indications for Procedure: seroma right chest wall Operative Findings: yellow fluid Description of Procedure: The area of concern in the right breast was prepped using alcohol. A 18-gauge needle on a 60 mL syringe was used to aspirate fluid. This was introduced and approximately 390 mL of fluid was removed. There was resolution of the seroma. The patient tolerated the procedure in stable condition.
== END | disposition home or self-care (01) ==
LOC: WWCWWP 11:01
PROVIDERS: ATTEND Surgery
DX: Z53.9 Procedure and treatment not carried out, unspecified reason (principal)

== ENCOUNTER → 2019-08-27 | Outpatient (CLI) | payer MEDICARE ==
[2019-08-27 11:45] VITALS: BP 117/65; PULSE 80; RESP 18; TEMP 98.2
--- NOTE | 2019-08-27 12:30 | P.PN ---
Subjective Progress Note Date: 08/27/19 Principal diagnosis: right breast cancer, asymmetry of the left breast Angelina is a 74-year-old white female status post right mastectomy on . She had previously undergone a right breast partial mastectomy in November 2016 followed by radiation therapy. She did not have any chemotherapy however was treated with let resolved. The patient had persistent discomfort in her right breast and after discussion wished to have a right mastectomy. Following the mastectomy she has had a seroma development and has this aspirated multiple times. The last aspiration was approximately 1 month ago. The patient additionally has size 44 double D breast on the left and wishes a symmetry procedure to be done such that she can wear a bra more easily and her close with a more comfortably. She additionally has shoulder notching on the left from heavy size of her left breast and neck pain. Objective - Vital Signs Vital signs: Vital Signs Temp 98.2 F 08/27/19 11:40 Pulse 80 08/27/19 11:40 Resp 18 08/27/19 11:40 BP 117/65 08/27/19 11:40 Pulse Ox 95 08/27/19 11:40 Intake & Output 08/26/19 08/27/19 08/27/19 18:59 06:59 18:59 Weight 84.368 kg - Exam BMI 36.3 - Constitutional General appearance: Present: obese - EENT Eyes: Present: EOMI ENT: Present: hearing grossly normal - Neck Neck: Present: normal ROM - Respiratory Respiratory: bilateral: CTA - Cardiovascular Rhythm: regular Heart sounds: normal: S1, S2 - Gastrointestinal Gastrointestinal Comment(s): Diastases rectus General gastrointestinal: Present: normal bowel sounds, soft - Integumentary Integumentary Comment(s): No evidence of fungal infection under her left breast at this time, seroma right chest wall Integumentary: Present: normal turgor - Musculoskeletal Musculoskeletal: Present: gait normal - Psychiatric Psychiatric: Present: A&O x's 3, appropriate affect, intact judgment & insight - Additional findings Additional findings: Chest wall: Right chest wall seroma Left breast multiple positional exam no dominant masses or nodules of concern Left axilla: No adenopathy of concern Assessment and Plan Assessment: Impression: 1. Aspiration seroma right chest wall 2. No evidence of recurrent cancer 3. Symmetry procedure for left breast Plan: 1. Aspiration seroma 2. Left breast diagnostic mammogram 3. Reduction mastopexy left breast secondary to asymmetry related to mastectomy for breast cancer CC: DR. Bowling encounter 30 minutes, > 50% of time in planning and counselling
--- NOTE | 2019-08-27 12:32 | P.PCN ---
Date of Procedure: 08/27/19 Preoperative Diagnosis: Seroma right chest wall Postoperative Diagnosis: Same Procedure(s) Performed: Aspiration seroma right chest wall Surgeon: Yolis Wang Pathology: none sent Condition: stable Disposition: same day Indications for Procedure: seroma right chest wall Description of Procedure: The area of the right chest is prepped using Betadine. A 18-gauge needle on and 60 mL syringe was used to aspirate approximately 170 mL of serous fluid. There was near complete resolution of the seroma. The patient tolerated the procedure in stable condition.
== END | disposition home or self-care (01) ==
LOC: WWCWWP 11:27
PROVIDERS: ATTEND Surgery
DX: Z53.9 Procedure and treatment not carried out, unspecified reason (principal)

== ENCOUNTER → 2019-09-09 | Outpatient (CLI) | payer MEDICARE ==
--- NOTE | 2019-09-09 10:19 | MM ---
Reason for exam: follow-up at short interval from prior study. Last mammogram was performed 10 months ago. History: Patient is postmenopausal, has history of breast cancer at age 71, and has history of other cancer at age 66. Family history of premenopausal breast cancer in paternal aunt at age 70 and premenopausal breast cancer in sister at age 50. Benign US breast aspiration single RT of the right breast, July 24, 2017. Malignant MG pre op needle loc RT of the right breast, November 27, 2016. Malignant US biopsy breast VAD RT of the right breast, October 26, 2016. Radiation therapy of the right breast, 2016. Benign stereotactic core biopsy of the left breast, December 15, 1997. Excisional biopsy of the right breast, 1971. Took hormonal contraceptives for 5 years. Took estrogen for 2 years. Took progesterone for 2 years. Taking antineoplastic for 3 years beginning at age 71. Physical Findings: Nurse did not find any significant physical abnormalities on exam. MG 3D Diag Mammo W/Cad LT CC and MLO view(s) were taken of the left breast. Prior study comparison: November 06, 2018, left breast MG 3d work up w/cad LT. October 27, 2018, bilateral MG 3d screening mammo w/cad. The breast tissue is heterogeneously dense. This may lower the sensitivity of mammography. Stable benign calcifications. There is no discrete abnormality. No significant new findings when compared with previous films. These results were verbally communicated with the patient and result sheet given to the patient on 09/09/19. ASSESSMENT: Benign, BI-RAD 2 RECOMMENDATION: Follow-up diagnostic mammogram of the left breast in 1 year.
== END | disposition home or self-care (01) ==
LOC: RADMAMWWP 09:19
PROVIDERS: ATTEND Surgery
DX: Z85.3 Personal history of malignant neoplasm of breast (principal); N64.4 Mastodynia
CPT/HCPCS: 77065; G0279; 77061

== ENCOUNTER → 2019-09-14 | Outpatient (CLI) | payer MEDICARE ==
[2019-09-14 15:27] LABS: African American GFR (CKD) >90 (>60 ml/min/1.73 sqM); Blood Urea Nitrogen 15 mg/dL (7-17); Non-African American GFR(CKD) 88 (>60 ml/min/1.73 sqM)
--- NOTE | 2019-09-14 16:43 | CT ---
EXAMINATION TYPE: CT abdomen w con DATE OF EXAM: 09/14/2019 COMPARISON: 12/07/2013 HISTORY: Abdominal swelling. CT DLP: 1236.9 mGycm Automated exposure control for dose reduction was used. TECHNIQUE: Helical acquisition of images was performed from the lung bases through the top of iliac crest to include entire abdomen. CONTRAST: Performed with Oral Contrast and with IV Contrast, patient injected with 100 mL of Isovue M300. FINDINGS: Breast prosthesis is incompletely visualized, patient is likely post right mastectomy. LUNG BASES: No significant abnormality is appreciated. LIVER/GB: Patient is post cholecystectomy. Low-attenuation within the liver likely due to hepatic meli atosis. PANCREAS: No significant abnormality is seen. SPLEEN: No significant abnormality is seen. ADRENALS: No significant abnormality is seen. KIDNEYS: No significant abnormality is seen. BOWEL: There is a duodenal diverticulum at the head of the pancreas suspected. Cecum shows fatty wal l possibly due to patient body habitus with extension into the descending colon. LYMPH NODES: No significant abnormality is appreciated. OSSEOUS STRUCTURES: No significant abnormality is seen. FREE AIR: No Free Air visible ASCITES: None visible. RETROPERITONEAL ADENOPATHY: No Retroperitoneal Adenopathy visible. OTHER: IMPRESSION: NONSPECIFIC FINDINGS DESCRIBED ABOVE.
== END | disposition home or self-care (01) ==
LOC: RADCTMAIN 14:38
PROVIDERS: ATTEND Surgery
DX: Z90.49 Acquired absence of other specified parts of digestive tract (principal); R19.06 Epigastric swelling, mass or lump; Z91.048 Other nonmedicinal substance allergy status
CPT/HCPCS: 82565; 84520; 74160; 36415; Q9967 ×2

== ENCOUNTER → 2019-09-18 | Outpatient (CLI) | payer MEDICARE ==
[2019-09-18 15:02] VITALS: BP 95/63; PULSE 84; RESP 16; TEMP 97.7
--- NOTE | 2019-09-18 15:20 | P.GSHP ---
History of Present Illness H&P Date: 09/18/19 Chief Complaint: Asymmetry of breast related to prior mastectomy Angelina is a 74-year-old white female status post right mastectomy on . She had previously undergone a right partial breast mastectomy in November 2016 followed by radiation therapy. She did not have any chemotherapy however he was treated with an anti-hormonal agent letrozole. The patient following her partial mastectomy had persistent discomfort in her right breast and after discussion wished to have a right mastectomy. Following the mastectomy she had a seroma that which developed and this was aspirated multiple times. The last aspiration was 08-27-19. The patient left breast is 44 double D. This is very difficult to find a broad shoewear or close to wear comfortably. Additionally should shoulder notching on the left from the heavy size of the breast and neck pain. She wishes this to be reduced to make finding clothes to fit well easier. Family history: father: multiple myloma mother: lung cancer sister: breast cancer maternal aunt: melanoma paternal aunt: ? parotid cancer paternal uncle: Esophageal cancer Hormonal history: Menarche: 13 , breast fed: no, age at first : 23 menopause: hysterectomy at 33, done for adenomyosis, did not take ovaries BCP: 2 years hormones: none/antihormone therapy after breast cancer Surgical history: 1. Right lumpectomy/sentinel node biopsy 2. Right mastectomy 3. Hysterectomy 4. Cholecystectomy 5. Right knee replacement 3 last time in 2011 6. Left ankle fracture 7. Bilateral shoulder surgery Medical history: 1. Diabetic 2. High cholesterol Social history: Smoking: Negative stopped many years ago Alcohol: Wine several times a week Drugs: none - Constitutional Constitutional: Denies chills, Denies fever - EENT Eyes: denies blurred vision, denies pain Ears: deny: decreased hearing, tinnitus Ears, nose, mouth and throat: Reports headache, Denies sore throat - Breasts Breasts: bilateral: as per HPI - Cardiovascular Cardiovascular: Denies chest pain, Denies shortness of breath - Respiratory Respiratory: Denies cough, Denies 7 - Gastrointestinal Gastrointestinal: Denies abdominal pain, Denies diarrhea, Denies nausea, Denies vomiting - Genitourinary (Female) Genitourinary: Denies dysuria, Denies hematuria - Menstruation Menstruation: Reports post hysterectomy, Reports postmenopausal - Musculoskeletal Musculoskeletal: Reports as per HPI - Integumentary Comment: skin cancer right posterior shoulder, two on face Integumentary: Denies pruritus, Denies rash - Neurological Neurological: Denies numbness, Denies weakness - Psychiatric Psychiatric: Reports depression - Endocrine Endocrine: Denies fatigue, Denies weight change - Hematologic/Lymphatic Comment: aspirin at night - Allergic/Immunologic Allergic/Immunologic: Reports seasonal allergies Past Medical History Past Medical History: Cancer, Diabetes Mellitus, GERD/Reflux, Hyperlipidemia, Osteoarthritis (OA), Skin Disorder Additional Past Medical History / Comment(s): Migraines, hx. of pancreatitis, "inverted T waves" in past, rosacea, breast cancer right breast 2017. Last radiation 02/2017, History of Any Multi-Drug Resistant Organisms: C-DIFF Date of last positivie culture/infection: 2002 MDRO Source:: STOOL Past Surgical History: Appendectomy, Bladder Surgery, Breast Surgery, Cholecystectomy, Hysterectomy, Joint Replacement, Orthopedic Surgery Additional Past Surgical History / Comment(s): rt knee replacement x3. ORIF left ANKLE. BILATERAL SHOULDER SURGERY FOR SPUR REMOVAL. BILATERAL HEELS BONE SPUR REMOVAL AND PLANTAR FASCITIS SURGERY. left GREAT TOE BONE SPUR REMOVAL. 2017 Right breast lumpectomy x2 with radiation treatment. Colonoscopy 2018(4th) rt knee replacement x3. 01/13/19 rt breast mastectomy. Past Anesthesia/Blood Transfusion Reactions: Motion Sickness, Postoperative Nausea & Vomiting (PONV) Additional Past Anesthesia/Blood Transfusion Reaction / Comment(s): States was still having nausea after surgery. Past Psychological History: Anxiety Smoking Status: Former smoker Past Alcohol Use History: Occasional Additional Past Alcohol Use History / Comment(s): quit smoking 1991, smoked for 20 yrs, 1 PPD Past Drug Use History: None Reported - Past Family History Sister(s) Family Medical History: Cancer Additional Family Medical History / Comment(s): Sister cervical and breast Father Family Medical History: Cancer Additional Family Medical History / Comment(s): bob ballesteros Mother Family Medical History: Cancer Additional Family Medical History / Comment(s): lung Medications and Allergies Home Medications Medication Instructions Recorded Confirmed Type Allopurinol [Zyloprim] 300 mg PO MOWEFR 12/02/13 09/18/19 History Aspirin 81 mg PO HS 12/02/13 09/18/19 History metFORMIN HCL 500 mg PO TID 12/02/13 09/18/19 History Ergocalciferol (Vitamin D2) 50,000 unit PO TH 10/19/16 09/18/19 History [Vitamin D2] Escitalopram [Lexapro] 10 mg PO QAM 11/23/16 09/18/19 History Ezetimibe [Zetia] 10 mg PO HS 11/23/16 09/18/19 History Fioricet(Dose Unknown) 1 tab PO Q8HR PRN 11/23/16 09/18/19 History Pantoprazole Sodium 40 mg PO DAILY PRN 11/23/16 09/18/19 History Rosuvastatin [Crestor] 20 mg PO HS 11/23/16 09/18/19 History Letrozole [Femara] 2.5 mg PO HS 07/22/17 09/18/19 History glipiZIDE [Glucotrol] 1 tab PO TID 07/22/17 09/18/19 History sitaGLIPtin PHOSPHATE [Januvia] 100 mg PO AC-LUNCH 01/09/19 08/27/19 History Nystatin 100,000 Unit/gm Powd 1 applic TOPICAL BID #1 bottle 01/15/19 09/18/19 Rx [Mycostatin Powder] Amitriptyline HCl 10 mg PO HS 09/18/19 09/18/19 History Allergies Allergy/AdvReac Type Severity Reaction Status Date / Time adhesive Allergy Intermediate Rash/Hives Verified 09/18/19 14:52 Surgical - Exam BMI 36.3 - General well developed, well nourished, no distress - Eyes normal ocular movement - ENT no hearing loss, no congestion - Neck no masses, trachea midline - Respiratory normal respiratory effort, clear to auscultation - Cardiovascular Rhythm: regular Heart Sounds: normal: S1, S2 - Abdomen Abdomen: soft, non tender, no guarding, no rigid, no rebound - Integumentary normal turgor - Neurologic no disoriented, no combative - Musculoskeletal normal gait - Psychiatric oriented to time, oriented to person, oriented to place, speech is normal, memory intact breast exam: BRA 44DD Inspection: Seroma right chest wall incision, left breast ptosis grade 3 Right chest wall incision clean and dry well-healed, no evidence of recurrent cancer, positive seroma present Right axilla: No adenopathy of concern Left breast: Multi-positional exam no dominant masses or nodules of concern, fibrocystic changes Left axilla: No adenopathy of concern Results left breast mammogram 09-09-19 benign BIRAD 2 Assessment and Plan Assessment: Impression: 1. No evidence of recurrent cancer rate chest wall 2. Asymmetry related to prior right mastectomy 3. Diabetes 4. Elevated cholesterol Plan: 1. Aspiration seroma right chest wall 2. Left breast childers pattern reduction mastopexy 3. Medical management of medical conditions 4. Medical clearance from Dr. Bowling CC: Dr. Bowling Risks and benefits of the procedure discussed with the patient. Risks include but are not limited to bleeding, infection, reaction to the anesthetic. The patient also understands that the breast will be smaller making easier for a right breast prosthesis.
--- NOTE | 2019-09-18 15:24 | P.PCN ---
Date of Procedure: 09/18/19 Preoperative Diagnosis: Seroma right chest wall Postoperative Diagnosis: Same Procedure(s) Performed: Aspiration seroma right chest wall Surgeon: Yolis Wang Pathology: none sent Condition: stable Disposition: same day Description of Procedure: The area of concern in the right breast was prepped using alcohol. A 60 mL syringe with an 18-gauge needle was inserted into the area of concern. 110 mL of fluid was aspirated. The patient tolerated the procedure in stable condition. There was complete resolution of the seroma.
== END | disposition home or self-care (01) ==
LOC: WWCWWP 14:42
PROVIDERS: ATTEND Surgery
DX: Z53.9 Procedure and treatment not carried out, unspecified reason (principal)

== ENCOUNTER 2019-10-27 09:02 | Day surgery (SDC) | payer MEDICARE ==
--- NOTE | 2019-10-16 14:27 | P.PN ---
Subjective Progress Note Date: 10/16/19 Principal diagnosis: Asymmetry of the breast related to prior mastectomy Angelina is a 74-year-old white female status post right mastectomy on . She had previously undergone a right partial breast mastectomy in November 2016 followed by radiation therapy. She did not have any chemotherapy however he was treated with an anti-hormonal agent letrozole. The patient following her partial mastectomy had persistent discomfort in her right breast and after discussion wished to have a right mastectomy. Following the mastectomy she had a seroma that which developed and this was aspirated multiple times. The last aspiration was 08-27-19. The patient left breast is 44 double D. This is very difficult to find a broad shoewear or close to wear comfortably. Additionally should shoulder notching on the left from the heavy size of the breast and neck pain. She w ishes this to be reduced to make finding clothes to fit well easier. Family history: father: multiple myloma mother: lung cancer sister: breast cancer maternal aunt: melanoma paternal aunt: ? parotid cancer paternal uncle: Esophageal cancer Hormonal history: Menarche: 13 , breast fed: no, age at first : 23 menopause: hysterectomy at 33, done for adenomyosis, did not take ovaries BCP: 2 years hormones: none/antihormone therapy after breast cancer Surgical history: 1. Right lumpectomy/sentinel node biopsy 2. Right mastectomy 3. Hysterectomy 4. Cholecystectomy 5. Right knee replacement 3 last time in 2011 6. Left ankle fracture 7. Bilateral shoulder surgery Medical history: 1. Diabetic 2. High cholesterol Social history: Smoking: Negative stopped many years ago Alcohol: Wine several times a week Drugs: none - Constitutional Constitutional: Denies chills, Denies fever - EENT Eyes: denies blurred vision, denies pain Ears: deny: decreased hearing, tinnitus Ears, nose, mouth and throat: Reports headache, Denies sore throat - Breasts Breasts: bilateral: as per HPI - Cardiovascular Cardiovascular: Denies chest pain, Denies shortness of breath - Respiratory Respiratory: Denies cough, Denies 7 - Gastrointestinal Gastrointestinal: Denies abdominal pain, Denies diarrhea, Denies nausea, Denies vomiting - Genitourinary (Female) Genitourinary: Denies dysuria, Denies hematuria - Menstruation Menstruation: Reports post hysterectomy, Reports postmenopausal - Musculoskeletal Musculoskeletal: Reports as per HPI - Integumentary Comment: skin cancer right posterior shoulder, two on face Integumentary: Denies pruritus, Denies rash - Neurological Neurological: Denies numbness, Denies weakness - Psychiatric Psychiatric: Reports depression - Endocrine Endocrine: Denies fatigue, Denies weight change - Hematologic/Lymphatic Comment: aspirin at night Objective - Exam BMI 36.3 - Constitutional General appearance: Present: obese - EENT Eyes: Present: EOMI ENT: Present: hearing grossly normal - Neck Neck: Present: normal ROM - Respiratory Respiratory: bilateral: CTA - Cardiovascular Heart sounds: normal: S1, S2 - Gastrointestinal General gastrointestinal: Present: soft - Integumentary Integumentary: Present: normal turgor - Musculoskeletal Musculoskeletal: Present: gait normal - Psychiatric Psychiatric: Present: A&O x's 3, appropriate affect, intact judgment & insight - Additional findings Additional findings: Breast exam: Block: 44 DT Inspection: Left breast ptosis grade 3 status post right mastectomy Right chest wall: Incision clean and dry Evidence of recurrent cancer Right axilla: No adenopathy of concern Left breast: Multiple positional exam the dominant masses or nodules of concern, fibrocystic changes Left axilla: No adenopathy of concern Left breast mammogram 7120 benign BIRADS 2 Assessment and Plan Assessment: Impression: 1. No evidence of recurrent cancer right chest wall 2. Asymmetry related to prior right mastectomy 3. Diabetes 4. Elevated cholesterol Plan: 1. Left breast childers pattern reduction mastopexy 2. Medical management of medical conditions 3. Medical clearance from Dr. Bowling Risks and benefits of procedure discussed with the patient. Risks include but are not limited to bleeding, infection, reaction to the anesthetic. The patient understands that the left breast will be smaller making it easier for right breast prosthesis.
[2019-10-21 13:26] VITALS: BMI 36.5
[~2019-10-27 09:02] MED LIST changes: +DEXAMETHASONE SOD PHOSPHATE 10 MG/ML 1 ML VIAL IV ONE; +HYDROmorphone 0.5 MG/0.5 ML SYRINGE IVP PRN; +LACTATED RINGERS 1,000 ML IV SCH; +LIDOCAINE 1% (10MG/ML) FOR IV START INTRADERMA PRN; -LIDOCAINE 1% 20 ML VIAL (10MG/ML) FOR IV START INTRADERMA PRN; +ONDANSETRON 4 MG/2 ML VIAL IVP ONE; -Pre Op ABX Message 1 EACH MISC MISCELLANE ONE
[2019-10-27 09:57] LABS: Glucose,Whole Blood 220 mg/dL (75-99)
[2019-10-27] MEDS ORDERED: SCOPOLAMINE 1.5MG/72HR PATCH TRANSDERM ONE (10:15)
[2019-10-27] MEDS ORDERED: fentaNYL (PF) 50 MCG/ML 2 ML AMP ONE (11:37)
[2019-10-27] MEDS ORDERED: KETOROLAC 30 MG/ML 1 ML VIAL ONE (11:37)
[2019-10-27] MEDS ORDERED: LIDOCAINE 1% INJ 10MG/ML (20 ML MDV) ONE (11:37)
[2019-10-27] MEDS ORDERED: SUCCINYLCHOLINE CHLORIDE 100 MG/5 ML SYR IV ONE (11:37)
[2019-10-27] MEDS ORDERED: PROPOFOL 10 MG/ML 20 ML VIAL IV ONE (11:37)
[2019-10-27] MEDS ORDERED: LACTATED RINGERS 1,000 ML IV ONE (14:23)
--- NOTE | 2019-10-27 14:43 | P.OP ---
Date of Procedure: 10/27/19 Preoperative Diagnosis: Macromastia left breast/prior right mastectomy for cancer Postoperative Diagnosis: Same Procedure(s) Performed: Left breast moser pattern reduction mastopexy Anesthesia: MANSOOR Surgeon: Yolis Wang Estimated Blood Loss (ml): 40 IV fluids (ml): 1,000 Pathology: other (breast tissue) Condition: stable Disposition: same day Indications for Procedure: Symptomatic left breast macromastia/status post right mastectomy for cancer Operative Findings: left breast macromastia Description of Procedure: Angelina is a 74 -year-old white female status post right breast mastectomy for cancer. She has a left breast macromastia, wearing a size double D bra making it very difficult to a prosthesis that fits well, or clothes that fit well. She is very symptomatic from this and wishes a left breast reduction. She was given the option of seeing a plastic surgeon however declined. She understands the risks and benefits and wishes to proceed. In the preoperative area the left breast was marked for a Moser pattern reduction mastopexy. The patient was brought to the operating room and following induction of anesthesia the left breast was prepped and draped in a st erile fashion. The pattern dozier were redrawn. Initially the skin for the inferior pedicle was de-epithelialized. This was done around the nipple areolar complex as well. Prior to this a 45 Cookie cutter was utilized to size the areola as well as the new areolar opening. Following de-epithelialization the skin was resected along the area which had been marked in the Moser pattern. The breast tissue was mobilized from the skin using dissection in the plane between the subcutaneous tissue and the breast tissue. This was done medially, laterally, superiorly, and inferiorly. A portion of breast tissue was removed. Following this the wound was well irrigated. After we were assured that hemostasis was attained Surgicel in powder form was placed. The skin was brought together and secured in place using kenton to assure we were had removed the appropriate amount of tissue. A further portion of skin was removed laterally. The skin was secured in place using interrupted 3-0 Vicryl sutures in the subcutaneous tissue. Following this the nipple areolar complex was secured in place using 3-0 vicryl running suture. This was followed by 3-0 Vicryl running sutures in the remainder of the incisions. Following this a 4-0 Monocryl subcuticular suture was placed. Following this running nylon sutures were placed at all the incisions. The patient tolerated the procedure in stable condition. The weight of the tissue removed was 200 g. The patient tolerated the procedure in stable condition. All instrument and sponge counts were correct at the end of the case.
--- NOTE | 2019-10-27 14:45 | P.DS ---
Providers Attending physician: Yolis Wang Primary care physician: Henry Bowling Plan - Discharge Summary Discharge Rx Participant: Yes New Discharge Prescriptions: No Action metFORMIN HCL 500 mg PO TID Aspirin 81 mg PO HS Allopurinol [Zyloprim] 300 mg PO MOWEFR Ezetimibe [Zetia] 10 mg PO HS Escitalopram [Lexapro] 10 mg PO QAM Pantoprazole Sodium 40 mg PO DAILY PRN PRN Reason: Heartburn glipiZIDE [Glucotrol] 1 tab PO TID Letrozole [Femara] 2.5 mg PO HS sitaGLIPtin PHOSPHATE [Januvia] 100 mg PO AC-LUNCH Nystatin 100,000 Unit/gm Powd [Mycostatin Powder] 1 applic TOPICAL BID #1 bottle Latanoprost/Pf [Latanoprost 0.005% Eye Drop] 1 drop BOTH EYES HS Rosuvastatin [Crestor] 20 mg PO HS Discharge Medication List Allopurinol [Zyloprim] 300 mg PO MOWEFR 12/02/13 [History] Aspirin 81 mg PO HS 12/02/13 [History] metFORMIN HCL 500 mg PO TID 12/02/13 [History] Escitalopram [Lexapro] 10 mg PO QAM 11/23/16 [History] Ezetimibe [Zetia] 10 mg PO HS 11/23/16 [History] Pantoprazole Sodium 40 mg PO DAILY PRN 11/23/16 [History] Letrozole [Femara] 2.5 mg PO HS 07/22/17 [History] glipiZIDE [Glucotrol] 1 tab PO TID 07/22/17 [History] sitaGLIPtin PHOSPHATE [Januvia] 100 mg PO AC-LUNCH 01/09/19 [History] Nystatin 100,000 Unit/gm Powd [Mycostatin Powder] 1 applic TOPICAL BID #1 bottle 01/15/19 [Rx] Latanoprost/Pf [Latanoprost 0.005% Eye Drop] 1 drop BOTH EYES HS 10/21/19 [History] Rosuvastatin [Crestor] 20 mg PO HS 10/21/19 [History] Follow up Appointment(s)/Referral(s): Yolis Wang MD [STAFF PHYSICIAN] - 1 Week Patient Instructions/Handouts: *Surgery [facility] - Scopalamine Patch Instructions Activity/Diet/Wound Care/Special Instructions: do not drive until seen by Dr. Vasquez wear bra at all time may shower at 48 hours Discharge Disposition: HOME SELF-CARE
[2019-10-27 14:52] LABS: Glucose,Whole Blood 212 mg/dL (75-99)
[2019-10-27 14:54] VITALS: TEMP 97.8
[2019-10-27 15:06] VITALS: RESP 16
[2019-10-27] MEDS ORDERED: diphenhydrAMINE 50 MG/ML 1 ML VIAL IVP ONE (15:19)
[2019-10-27 16:44] VITALS: BP 108/75; PULSE 74
== END 2019-10-27 17:15 | disposition home or self-care (01) ==
LOC: OR 09:02
PROVIDERS: ATTEND Surgery
DX: N65.1 Disproportion of reconstructed breast (principal); Z90.11 Acquired absence of right breast and nipple; Z85.3 Personal history of malignant neoplasm of breast; E11.9 Type 2 diabetes mellitus without complications; E78.5 Hyperlipidemia, unspecified; E78.00 Pure hypercholesterolemia, unspecified; G43.909 Migraine, unspecified, not intractable, without status migrainosus; M10.9 Gout, unspecified; Z92.3 Personal history of irradiation; Z90.710 Acquired absence of both cervix and uterus; Z90.49 Acquired absence of other specified parts of digestive tract; Z96.651 Presence of right artificial knee joint; Z98.890 Other specified postprocedural states; Z87.891 Personal history of nicotine dependence; Z78.0 Asymptomatic menopausal state; Z91.048 Other nonmedicinal substance allergy status; Z79.82 Long term (current) use of aspirin; Z79.84 Long term (current) use of oral hypoglycemic drugs; Z79.811 Long term (current) use of aromatase inhibitors; Z79.899 Other long term (current) drug therapy; Z80.1 Family history of malignant neoplasm of trachea, bronchus and lung; Z80.3 Family history of malignant neoplasm of breast; Z80.0 Family history of malignant neoplasm of digestive organs; Z80.8 Family history of malignant neoplasm of other organs or systems
CPT/HCPCS: 88305; 19318; J1200; J1644; J1100; J0690; J2405; J2001; J3010; J1885; J0330; J2704; J1170

== ENCOUNTER → 2019-10-30 | Outpatient (CLI) | payer MEDICARE ==
[~2019-10-30] MED LIST changes: -DEXAMETHASONE SOD PHOSPHATE 10 MG/ML 1 ML VIAL IV ONE; +HEPARIN SODIUM,PORCINE 5,000 UNIT/ML 1 ML VIAL ONE; -HEPARIN SODIUM,PORCINE 5,000 UNIT/ML 1 ML VIAL SQ ONE; -HYDROmorphone 0.5 MG/0.5 ML SYRINGE IVP PRN; -LACTATED RINGERS 1,000 ML IV SCH; -LIDOCAINE 1% (10MG/ML) FOR IV START INTRADERMA PRN; -MIDAZOLAM 2 MG/2 ML VIAL IV PRN; -ONDANSETRON 4 MG/2 ML VIAL IVP ONE; +ONDANSETRON 4 MG/2 ML VIAL ONE
[2019-10-30 10:30] VITALS: BP 91/56; PULSE 94; RESP 18; TEMP 99
--- NOTE | 2019-10-30 10:49 | P.PN ---
Progress Note - Text Progress Note Date: 10/30/19 Angelina is a 74 year old white female status post left breast reduction mastopexy secondary to asymmetry related to a right breast m[place] [address]. The patient initially had minimal pain and was doing well. However today the patient states that she has increased discomfort in the left breast, there is greatest in the lateral aspect and with movement. She has a low-grade temperature of 99 in the office. Exam: Lungs: Clear Heart: Regular rate and rhythm Incision: Clean and dry no evidence of infection patient swelling of the lateral aspect of the breast with some mild ecchymosis Impression: 1. Postop day #3 was pattern reduction mastopexy with some discomfort in the lateral aspect of the breast 2. Low-grade temperature 3. Patient with diabetes Plan: 1. CBC 2. Close monitoring 3. I will start the patient on some Keflex 4. Continue to wear bra CC: Dr. Bowling
[2019-10-30 11:20] LABS: HCT 37.1 % (34.0-46.0); HGB 12.1 gm/dL (11.4-16.0); MCHC 32.6 g/dL (31.0-37.0); MCV 95.1 fL (80.0-100.0); Mean Platelet Volume 8.1; Platelet Count 128 k/uL (150-450); RDW 13.5 % (11.5-15.5); WBC 5.4 k/uL (3.8-10.6)
== END | disposition home or self-care (01) ==
LOC: WWCWWP 09:35
PROVIDERS: ATTEND Surgery
DX: T81.40XA Infection following a procedure, unspecified, initial encounter (principal)
CPT/HCPCS: 36415; 85027

== ENCOUNTER → 2019-11-12 | Outpatient (CLI) | payer MEDICARE ==
--- NOTE | 2019-11-12 16:38 | P.PN ---
Progress Note - Text Progress Note Date: 11/12/19 Angelina is a 74-year-old white female status post left breast reduction mastopexy secondary to asymmetry related to a right breast [place] [address]. At this time she is doing very well with minimal discomfort. The patient does not have any fever, she is not complaining of any redness to the area, and no warmness of the breast. There is some mild erythema at the inferior aspect in the midportion of the breast. Pathology was reviewed and this was all benign. Approximately 218 gms of tissue removed. Patient is very happy with the cosmetic results. Examination: Lungs: Clear Heart: Regular rate and rhythm Incision: Clean and dry, at the inverted T there is some mild erythema Impression: Patient doing well status post left breast reduction mastopexy Plan: 1. Remove sutures 2. Mild erythema at the inverted T give one more week of antibiotics 3. Follow-up in 2 weeks CC: DR. Bowling
[2019-11-12 17:06] VITALS: BP 102/68; PULSE 84; RESP 16; TEMP 98.6
== END | disposition home or self-care (01) ==
LOC: WWCWWP 15:59
PROVIDERS: ATTEND Surgery
DX: Z53.9 Procedure and treatment not carried out, unspecified reason (principal)

== ENCOUNTER → 2019-11-19 | Outpatient (CLI) | payer MEDICARE ==
[2019-11-19 09:42] VITALS: BP 109/61; PULSE 80; RESP 16; TEMP 98.9
--- NOTE | 2019-11-19 09:45 | P.PN ---
Subjective Progress Note Date: 11/19/19 Principal diagnosis: Drainage of fluid from inferior aspect of incision Angelina is a 74 year old white female status post left breast mammoplasty on 10-27-19. She has done well postprocedure, but calls this morning stating she has had some drainage from the inferior aspect of the incision. She has not had any fever or chills. She is not complaining of any pain. She was instructed to come into the office for evaluation. She is very satisfied with the cosmetic results. Objective - Exam BMI 36.5 - Constitutional General appearance: Present: obese - EENT Eyes: Present: EOMI ENT: Present: hearing grossly normal - Neck Neck: Present: normal ROM - Respiratory Respiratory: bilateral: CTA - Cardiovascular Rhythm: regular Heart sounds: normal: S1, S2 - Integumentary Integumentary Comment(s): Incision clean and dry At the inverted T trifurcation there is a small amount of necrosis with some serous drainage Appearance seroma the lateral aspect of the breast Mild erythema at the inferior aspect of the breast no cellulitis Assessment and Plan Assessment: Impression: 1. Patient status post right mastectomy 21285 for invasive ductal carcinoma 2. Diabetes 3. Elevated cholesterol 4. BMI 36.5 5. Recent reduction mammoplasty [place] [address], seroma at mammoplasty site 6. Patient very satisfied with cosmetic mammoplasty results Plan: 1. Drainage of seroma 2. Continue antibiotic 3. Follow-up in 1 week Cc: Dr. Bowling
--- NOTE | 2019-11-19 09:48 | P.PCN ---
Date of Procedure: 11/19/19 Preoperative Diagnosis: Seroma status post mammoplasty left breast Postoperative Diagnosis: Same Procedure(s) Performed: Aspiration seroma Surgeon: Yolis Wang Pathology: none sent Condition: stable Disposition: same day Indications for Procedure: Seroma at mammoplasty site Description of Procedure: The lateral aspect of the breast was prepped using alcohol. An 18-gauge needle on a 60 mL syringe was inserted into an area of fluctuance. Approximately 240 mL of seroma fluid was removed. The inverted T aspect of the incision was reinforced with 3-0 nylon suture, after 1% lidocaine was injected. The patient tolerated the procedure in stable condition. Secondary to drainage of the serom a and mild inferior breast erythema prophylactic antibiotics were continued.
== END | disposition home or self-care (01) ==
LOC: WWCWWP 09:03
PROVIDERS: ATTEND Surgery
DX: Z53.9 Procedure and treatment not carried out, unspecified reason (principal)

== ENCOUNTER → 2019-11-26 | Outpatient (CLI) | payer MEDICARE ==
[2019-11-26 15:58] VITALS: BP 104/59; PULSE 70; RESP 18
--- NOTE | 2019-11-26 15:58 | P.PN ---
Progress Note - Text Progress Note Date: 11/26/19 Angelina is a 74 year old white female status post left breast mammoplasty on 10-27-19. She has done well postprocedure. She has not had any fever or chills. She is not complaining of any pain. She is very satisfied with the cosmetic results. Physical exam: Lungs: Clear Heart: Regular rate and rhythm Incision: Clean and dry at the inverted T area at the inferior aspect of the breast is small amount of granulation tissue seroma present laterally Plan: 1. Continue present therapy 2. Aspiration of seroma
--- NOTE | 2019-11-26 15:59 | P.PCN ---
Date of Procedure: 11/26/19 Preoperative Diagnosis: Seroma left breast Postoperative Diagnosis: same Procedure(s) Performed: Aspiration of seroma Surgeon: Yolis Wang Description of Procedure: The lateral aspect of the breast was prepped using alcohol. An 18-gauge needle on a 60 mL syringe was inserted into the area of fluctuance. Approximately 85 mL of serous fluid was removed. Patient tolerated procedure in stable condition. Patient will follow next week.
== END | disposition home or self-care (01) ==
LOC: WWCWWP 14:31
PROVIDERS: ATTEND Surgery
DX: Z53.9 Procedure and treatment not carried out, unspecified reason (principal)

== ENCOUNTER → 2019-12-03 | Outpatient (CLI) | payer MEDICARE ==
[2019-12-03 15:43] VITALS: BP 113/57; PULSE 88; RESP 18; TEMP 97.6
--- NOTE | 2019-12-03 16:07 | P.PN ---
Progress Note - Text Progress Note Date: 12/03/19 Angelina is a 74 year old white female status post left breast mammoplasty on 10-27-19. She has done well postprocedure. She has not had any fever or chills. She is not complaining of any pain. She is very satisfied with the cosmetic results. She will continue to follow with Dr. Castellon from medical oncology. Physical exam: Lungs: Clear Heart: Regular rate and rhythm Incision: Clean and dry at the inverted T area at the inferior aspect of the breast is small amount of granulation tissue seroma present laterally Plan: 1. Continue present therapy 2. Aspiration of seroma
--- NOTE | 2019-12-03 16:08 | P.PCN ---
Date of Procedure: 12/03/19 Preoperative Diagnosis: Seroma left mammoplasty site Postoperative Diagnosis: Same Procedure(s) Performed: Aspiration of seroma Surgeon: Yolis Wang Pathology: none sent Description of Procedure: The area of seroma in the left lateral breast was prepped using alcohol. A 60 mL syringe with an 18-gauge needle was used to aspirate the fluid. This was inserted into the area of fluctuance. 70 mL of straw-colored fluid was obtained. The patient tolerated the procedure in stable condition. The patient will continue present therapy.
== END | disposition home or self-care (01) ==
LOC: WWCWWP 15:33
PROVIDERS: ATTEND Surgery
DX: Z53.9 Procedure and treatment not carried out, unspecified reason (principal)

== ENCOUNTER → 2019-12-18 | Outpatient (CLI) | payer MEDICARE ==
[2019-12-18 09:41] VITALS: BP 121/68; PULSE 69; RESP 16; TEMP 97.6
--- NOTE | 2019-12-18 10:18 | P.PN ---
Progress Note - Text Progress Note Date: 12/18/19 Angelina is a 74 year old white female status post left breast mammoplasty on 10-27-19. She has done well postprocedure. She has not had any fever or chills. She is not complaining of any pain. She is very satisfied with the cosmetic results. She will continue to follow with Dr. Castellon from medical oncology. Physical exam: Lungs: Clear Heart: Regular rate and rhythm Incision: Clean and dry at the inverted T area at the inferior aspect of the breast is small amount of granulation tissue; . Granulation tissue measures 2 cm in length and 1 cm in height seroma present laterally Plan: 1. Continue present therapy 2. Aspiration of seroma 3. follow up in one week She is very satisfied with the cosmetic results. The lateral aspect of the breast was prepped using alcohol. An 18-gauge needle on at 60 mL syringe was inserted into the area of fluctuance. 90 mL of straw- colored fluid was removed. Following this the area of the inverted T was prepped using Betadine. 1% plain lidocaine was used to anesthetize the area of concern. A reinforcing 3-0 nylon suture was placed on either side of the T. The patient is doing well at this time.
== END | disposition home or self-care (01) ==
LOC: WWCWWP 09:23
PROVIDERS: ATTEND Surgery
DX: Z53.9 Procedure and treatment not carried out, unspecified reason (principal)

== ENCOUNTER → 2019-12-25 | Outpatient (CLI) | payer MEDICARE ==
--- NOTE | 2019-12-25 16:28 | P.PN ---
Progress Note - Text Progress Note Date: 12/25/19 Angelina is a 74 year old white female status post left breast mammoplasty on 10-27-19. She has done well postprocedure. She has not had any fever or chills. She is not complaining of any pain. She is very satisfied with the cosmetic results. She will continue to follow with Dr. Castellon from medical oncology. There is no evidence of any seroma which needs aspiration today. The inferior portion of the incision at the trifurcation area is healing well. Physical exam: Lungs: Clear Heart: Regular rate and rhythm Incision: Clean and dry at the inverted T area at the inferior aspect of the breast is small amount of granulation tissue; . Granulation tissue minimal on today's examination Plan: 1. Continue present therapy 2. follow up in one week She is very satisfied with the cosmetic results.
[2019-12-25 16:34] VITALS: BP 120/81; PULSE 87; RESP 18; TEMP 97.7
== END | disposition home or self-care (01) ==
LOC: WWCWWP 15:43
PROVIDERS: ATTEND Surgery
DX: Z53.9 Procedure and treatment not carried out, unspecified reason (principal)

== ENCOUNTER → 2020-01-08 | Outpatient (CLI) | payer MEDICARE ==
[2020-01-08 09:02] VITALS: BP 99/56; PULSE 81; RESP 16; TEMP 98.5
--- NOTE | 2020-01-08 09:22 | P.PN ---
Progress Note - Text Progress Note Date: 01/08/20 Angelina is a 74 year old white female status post left breast mammoplasty on 10-27-19. She has done well postprocedure. She has not had any fever or chills. She is not complaining of any pain. She is very satisfied with the cosmetic results. She has good nipple sensation. She will continue to follow with Dr. Castellon from medical oncology. There is no evidence of any seroma which needs aspiration today. The inferior portion of the incision at the trifurcation area is healing well. Physical exam: Lungs: Clear Heart: Regular rate and rhythm Incision: Clean and dry at the inverted T area at the inferior aspect of the breast well-healed at this time No evidence of recurrent cancer of right chest wall Plan: 1. Routine surveillance regarding right breast cancer/follow up here in 6 months 2. follow up sooner if any questions of concern 3. Patient given a prescription for a right breast prosthesis She is very satisfied with the cosmetic results, she has good nipple sensation, she is going to be fitted for a right breast prosthesis
== END | disposition home or self-care (01) ==
LOC: WWCWWP 08:19
PROVIDERS: ATTEND Surgery
DX: Z53.9 Procedure and treatment not carried out, unspecified reason (principal)

== ENCOUNTER → 2020-07-08 | Outpatient (CLI) | payer MEDICARE ==
[2020-07-08 10:38] VITALS: BP 145/86; PULSE 100; RESP 16; TEMP 97.5
--- NOTE | 2020-07-08 10:49 | P.PN ---
Subjective Progress Note Date: 07/08/20 Principal diagnosis: right mastectomy/ right breast cancer Angelina is a 74-year-old white female status post right mastectomy on . She had previously undergone a right partial breast mastectomy in November 2016 followed by radiation therapy. She did not have any chemotherapy however he was treated with an anti-hormonal agent letrozole. The patient following her partial mastectomy had persistent discomfort in her right breast and after discussion wished to have a right mastectomy. Following the mastectomy she had a seroma that which developed and this was aspirated multiple times. The last aspiration was 08-27-19. The patient left breast is 44 double D. This was very difficult to find a bra to wear or clothes to wear comfortably. The patient is not complaining of any lumps masses or nodules for which she is concerned she does have postop changes in the left breast. She continues to have firmness on the right chest wall. She had a symmetry procedure done on 10-27-19. She and her had COVID in February. She had the Pfizer vaccine the first one was in her left arm and it was done approximately 1 month ago. The last one was yesterday in her left arm as well. She did not have any adverse reactions but did complain of some soreness of her arm. Family history: father: multiple myloma mother: lung cancer sister: breast cancer maternal aunt: melanoma paternal aunt: ? parotid cancer paternal uncle: Esophageal cancer Hormonal history: Menarche: 13 , breast fed: no, age at first : 23 menopause: hysterectomy at 33, done for adenomyosis, did not take ovaries BCP: 2 years hormones: none/antihormone therapy after breast cancer Surgical history: 1. Right lumpectomy/sentinel node biopsy 2. Right mastectomy 3. Hysterectomy 4. Cholecystectomy 5. Right knee replacement 3 last time in 2011 6. Left ankle fracture 7. Bilateral shoulder surgery Medical history: 1. Diabetic 2. High cholesterol Social history: Smoking: Negative stopped many years ago Alcohol: Wine several times a week Drugs: none - Constitutional Constitutional: Denies chills, Denies fever - EENT Eyes: denies blurred vision, denies pain Ears: deny: decreased hearing, tinnitus Ears, nose, mouth and throat: Reports headache, Denies sore throat - Breasts Breasts: bilateral: as per HPI - Cardiovascular Cardiovascular: Denies chest pain, Denies shortness of breath - Respiratory Respiratory: Denies cough, - Gastrointestinal Gastrointestinal: Denies abdominal pain, Denies diarrhea, Denies nausea, Denies vomiting - Genitourinary (Female) Genitourinary: Denies dysuria, Denies hematuria - Menstruation Menstruation: Reports post hysterectomy, Reports postmenopausal - Musculoskeletal Musculoskeletal: Reports as per HPI - Integumentary Comment: skin cancer right posterior shoulder, two on face Integumentary: Denies pruritus, Denies rash - Neurological Neurological: Denies numbness, Denies weakness - Psychiatric Psychiatric: Reports depression - Endocrine Endocrine: Denies fatigue, Denies weight change - Hematologic/Lymphatic Comment: aspirin at night - Allergic/Immunologic Allergic/Immunologic: Reports seasonal allergies Objective - Exam BMI 35.7 - Constitutional General appearance: Present: cooperative - EENT Eyes: Present: EOMI ENT: Present: hearing grossly normal - Neck Neck: Present: normal ROM - Respiratory Respiratory: bilateral: CTA - Cardiovascular Rhythm: regular Heart sounds: normal: S1, S2 - Integumentary Integumentary: Present: normal turgor - Musculoskeletal Musculoskeletal: Present: gait normal - Psychiatric Psychiatric: Present: A&O x's 3, appropriate affect, intact judgment & insight - Additional findings Additional findings: Breast exam: BRA: 42C/D decreased from a 44DD inspection: right chest wall, swollen; left breast changes secondary to surgery Palpation: right chest wall: firm/seroma right axilla: no adenopathy of concern Left breast: Multi-positional exam no dominant masses or nodules of concern well-healed scars from prior reduction mammoplasty Left axilla: No adenopathy of concern Seroma right chest wall Assessment and Plan Assessment: Impression: 1. Patient status post right mastectomy/radiation therapy 2. No evidence of recurrent right breast cancer seroma right chest wall 3. No lesions of concern in the left breast status post mammoplasty Plan: 1. Aspiration seroma right chest wall 2. Left breast mammogram September 3. Follow-up 2 weeks to reevaluate seroma Cc: Dr. Bowling Aspiration seroma: Area of concern in the right chest wall was prepped using alcohol an 20-gauge needle on a 20 mL syringe was inserted into the area of concern. Proximally 150 mL of brown-colored fluid was aspirated. There is no evidence of any infection. There was resolution of the seroma. Patient tolerated the procedure in stable condition.
== END ==
LOC: WWCWWP 09:26
PROVIDERS: ATTEND Surgery
DX: Z08 Encounter for follow-up examination after completed treatment for malignant neoplasm (principal); Z85.3 Personal history of malignant neoplasm of breast; E11.9 Type 2 diabetes mellitus without complications; E78.00 Pure hypercholesterolemia, unspecified; Z90.11 Acquired absence of right breast and nipple; Z87.891 Personal history of nicotine dependence

== ENCOUNTER → 2020-07-22 | Outpatient (CLI) | payer MEDICARE ==
--- NOTE | 2020-07-22 14:57 | P.PN ---
Progress Note - Text Progress Note Date: 07/22/20 right mastectomy/ right breast cancer Angelina is a 74-year-old white female status post right mastectomy on . She had previously undergone a right partial breast mastectomy in November 2016 followed by radiation therapy. She did not have any chemotherapy however he was treated with an anti-hormonal agent letrozole. The patient following her partial mastectomy had persistent discomfort in her right breast and after discussion wished to have a right mastectomy. Following the mas tectomy she had a seroma that which developed and this was aspirated multiple times. The last aspiration was 08-27-19. The patient left breast is 44 double D. This was very difficult to find a bra to wear or clothes to wear comfortably. The patient is not complaining of any lumps masses or nodules for which she is concerned she does have postop changes in the left breast. She continues to have firmness on the right chest wall. She had a symmetry procedure done on 10-27-19. She and her had COVID in February. She had the [employer] vaccine the first one was in her left arm and it was done approximately 1 month ago. The last one was yesterday in her left arm as well. She did not have any adverse reactions but did complain of some soreness of her arm. Aspiration of seroma was performed on [id number]. That time 150 mL of brown- colored fluid was aspirated. There was no evidence of any infection. She returns today for repeat evaluation of the right chest wall. At this time there is a small hematoma and we have agreed to aspiration. The area of concern in the right chest wall was prepped using alcohol. An 18 - gauge needle on a 20 mL syringe was inserted into the area of concern. 80 mL of blood tinged fluid was aspirated. There was no evidence of any infection. The patient tolerated the procedure in stable condition. There was complete resolution of the seroma. The patient will follow-up in 2 weeks to again evaluate the area of seroma. CC: Dash
[2020-07-22 16:01] VITALS: BP 142/76; PULSE 79; RESP 16; TEMP 98
== END ==
LOC: WWCWWP 14:26
PROVIDERS: ATTEND Surgery
DX: L76.32 Postprocedural hematoma of skin and subcutaneous tissue following other procedure (principal); Z90.11 Acquired absence of right breast and nipple; Z87.891 Personal history of nicotine dependence; Z91.048 Other nonmedicinal substance allergy status

== ENCOUNTER → 2020-08-05 | Outpatient (CLI) | payer MEDICARE ==
--- NOTE | 2020-08-05 12:14 | P.PN ---
Progress Note - Text Progress Note Date: 08/05/20 Angelina is a 74-year-old white female status post right mastectomy on . She had previously undergone a right partial breast mastectomy in November 2016 followed by radiation therapy. She did not have any chemotherapy however he was treated with an anti-hormonal agent letrozole. The patient following her partial mastectomy had persistent discomfort in her right breast and after discussion wished to have a right mastectomy. Following the mastectomy she had a seroma that which developed and this was aspirated multiple times. She had a symmetry procedure done on 10-27-19. She and her had COVID in February. She had the [employer] vaccine the first one was in her left arm and it was done approximately 6 weeks month ago. The last one was yesterday in her left arm as well. She did not have any adverse reactions but did complain of some soreness of her arm. Aspiration of seroma was performed on . That time 150 mL of brown- colored fluid was aspirated. There was no evidence of any infection. She returns today for repeat evaluation of the right chest wall. She states that this seroma has not come back to any extent, however and her left breast there is an area of breakdown of the incision. Physical examination: Right chest wall minimal if any seroma at this time nothing to aspirate no evidence of any recurrent disease Left breast at the inferior trifurcation of the incision there is very small area of opening one set is 5 mm and the second areas 3 mm no evidence of any infection this appears to be granulation tissue Chest: Clear Heart: Regular rate and rhythm Impression: Patient doing very well at this time no aspiration recommended today the area of granulation tissue on the left breast was cauterized using silver nitrate stick the dimensions are 5 mm in the medial area of the incision approximately 3 mm the more lateral portion of the incision Patient instructed in wound care she will keep a gauze over the area and not instructed to wear a Band-Aid on it Plan: 1. Patient due for left breast mammogram September 13 and appointment September 22 2. Any questions or concerns patient will call sooner
[2020-08-05 12:23] VITALS: BP 139/87; PULSE 77; RESP 16; TEMP 97.9
== END ==
LOC: WWCWWP 11:50
PROVIDERS: ATTEND Surgery
DX: N64.89 Other specified disorders of breast (principal); Z90.11 Acquired absence of right breast and nipple; Z91.048 Other nonmedicinal substance allergy status; Z87.891 Personal history of nicotine dependence

== ENCOUNTER → 2020-09-01 | Outpatient (CLI) | payer MEDICARE ==
[2020-09-01 21:52] LABS: Protein, Total 6.2 g/dL (6.2-8.2)
[2020-09-03 12:43] LABS: Albumin 3.79 g/dL (3.80-4.90); Gamma Globulin 0.63 g/dL (0.70-1.50)
== END | disposition home or self-care (01) ==
LOC: LABWHC1 12:11
PROVIDERS: ATTEND Psychiatry & Neurology Neurology
DX: G62.9 Polyneuropathy, unspecified (principal)
CPT/HCPCS: 36415; 82607; 84165; 86334

== ENCOUNTER → 2020-09-13 | Outpatient (CLI) | payer MEDICARE ==
--- NOTE | 2020-09-14 09:40 | MM ---
Reason for exam: additional evaluation requested from prior study. Last mammogram was performed 1 year ago. History: Patient is postmenopausal, has history of breast cancer at age 71, and has history of other cancer at age 66. Family history of premenopausal breast cancer in paternal aunt at age 70 and premenopausal breast cancer in sister at age 50. Reduction of the left breast, October 2019. Mastectomy of the right breast, January 2019. Benign US breast aspiration single RT of the right breast, July 24, 2017. Malignant MG pre op needle loc RT of the right breast, November 27, 2016. Malignant US biopsy breast VAD RT of the right breast, October 26, 2016. Radiation therapy of the right breast, 2016. Benign stereotactic core biopsy of the left breast, December 15, 1997. Excisional biopsy of the right breast, 1971. Took hormonal contraceptives for 5 years. Took estrogen for 2 years. Took progesterone for 2 years. Taking antineoplastic for 4 years beginning at age 71. Physical Findings: Nurse did not find any significant physical abnormalities on exam. MG 3D Diag Mammo W/Cad LT CC and MLO view(s) were taken of the left breast. Prior study comparison: September 09, 2019, left breast MG 3d diag mammo w/cad LT. November 06, 2018, left breast MG 3d work up w/cad LT. The breast tissue is heterogeneously dense. This may lower the sensitivity of mammography. Significant changes left breast after breast reduction, probably benign, follow up in 6 months. These results were verbally communicated with the patient and result sheet given to the patient on 09/13/20. ASSESSMENT: Probably benign, BI-RAD 3 RECOMMENDATION: Follow-up diagnostic mammogram of the left breast in 6 months.
== END | disposition home or self-care (01) ==
LOC: RADMAMWWP 09:24
PROVIDERS: ATTEND Surgery
DX: R92.2 Inconclusive mammogram (principal); Z78.0 Asymptomatic menopausal state; Z80.3 Family history of malignant neoplasm of breast; Z85.3 Personal history of malignant neoplasm of breast; Z79.3 Long term (current) use of hormonal contraceptives; Z79.818 Long term (current) use of other agents affecting estrogen receptors and estrogen levels
CPT/HCPCS: 77065; G0279; 77061

== ENCOUNTER → 2020-09-22 | Outpatient (CLI) | payer MEDICARE ==
[2020-09-22 10:28] VITALS: BP 102/65; PULSE 72; RESP 12; TEMP 97.2
--- NOTE | 2020-09-22 10:42 | P.PN ---
Subjective Progress Note Date: 09/22/20 Principal diagnosis: IIA right breast cancer 2016, [id number]- Angelina is a 75-year-old white female status post right mastectomy on . She had previously undergone a right partial breast mastectomy in November 2016 followed by radiation therapy. She did not have any chemotherapy however she was treated with an anti-hormonal agent letrozole. The patient following her partial mastectomy had persistent discomfort in her right breast and after discussion wished to have a right mastectomy. Following the mastectomy she had a seroma that which developed and this was aspirated multiple times. She underwent a reduction mammoplasty of the left breast in January 2021. She underwent a left breast mammogram and 76. This revealed changes after breast reduction mammoplasty felt to be benign. Precautionary measure repeat recommend a repeat left breast mammogram in 6 months. She believes that the seroma on the right chest wall has recurred. She is not complaining of any new lumps masses or nodules in the left breast[place] [id number]. His note was reviewed. She is continuing on Femara. She has a bone density ordered. And she was started on vitamin D. She was recently started on B12 as per Dr. Michel. Family history: father: multiple myloma mother: lung cancer sister: breast cancer maternal aunt: melanoma paternal aunt: ? parotid cancer paternal uncle: Esophageal cancer Hormonal history: Menarche: 13 , breast fed: no, age at first : 23 menopause: hysterectomy at 33, done for adenomyosis, did not take ovaries BCP: 2 years hormones: none/antihormone therapy after breast cancer Surgical history: 1. Right lumpectomy/sentinel node biopsy 2. Right mastectomy 3. Hysterectomy 4. Cholecystectomy 5. Right knee replacement 3 last time in 2011 6. Left ankle fracture 7. Bilateral shoulder surgery Medical history: 1. Diabetic 2. High cholesterol Social history: Smoking: Negative stopped many years ago Alcohol: Wine several times a week Drugs: none - Constitutional Constitutional: Denies chills, Denies fever - EENT Eyes: denies blurred vision, denies pain Ears: deny: decreased hearing, tinnitus Ears, nose, mouth and throat: Reports headache, Denies sore throat - Breasts Breasts: bilateral: as per HPI - Cardiovascular Cardiovascular: Denies chest pain, Denies shortness of breath - Respiratory Respiratory: Denies cough - Gastrointestinal Gastrointestinal: Denies abdominal pain, Denies diarrhea, Denies nausea, Denies vomiting - Genitourinary (Female) Genitourinary: Denies dysuria, Denies hematuria - Menstruation Menstruation: Reports post hysterectomy, Reports postmenopausal - Musculoskeletal Musculoskeletal: Reports as per HPI - Integumentary Comment: skin cancer right posterior shoulder, two on face Integumentary: Denies pruritus, Denies rash - Neurological Neurological: Denies numbness, Denies weakness - Psychiatric Psychiatric: Reports depression - Endocrine Endocrine: Denies fatigue, Denies weight change - Hematologic/Lymphatic Comment: aspirin at night Objective - Exam BMI 35.3 - Constitutional General appearance: Present: cooperative - EENT Eyes: Present: EOMI ENT: Present: hearing grossly normal - Respiratory Respiratory: bilateral: CTA - Cardiovascular Heart sounds: normal: S1, S2 - Integumentary Integumentary: Present: normal turgor - Musculoskeletal Musculoskeletal: Present: gait normal - Psychiatric Psychiatric: Present: A&O x's 3, appropriate affect, intact judgment & insight - Additional findings Additional findings: Breast Exam: left breast BRA: 42D inspection: right chest wall seroma, well-healed scars left breast from prior surgery Palpation: Left breast: Multi-positional exam no dominant masses or nodules of concern Left axilla: No adenopathy of concern Right chest wall seroma present Right axilla: No adenopathy of concern Assessment and Plan Assessment: Impression: 1. No evidence of recurrent right breast cancer 2. Mammogram left breast to be repeated in 6 months 3. Seroma right chest wall Plan: 1. Aspiration seroma 2. Repeat left breast mammogram 6 months with position exam at that time 3. If seroma recurs again would consider radiology placing a drain CC: Dr. Bowling We have discussed with the patient aspiration of seroma. The area was prepped using alcohol after a timeout and consent were obtained. A 20 mL syringe with an patient was used to aspirate the seroma. Approximately 120 mL was removed. The fluid appeared to be blood tinged.
== END ==
LOC: WWCWWP 09:47
PROVIDERS: ATTEND Surgery
DX: M96.843 Postprocedural seroma of a musculoskeletal structure following other procedure (principal); E11.9 Type 2 diabetes mellitus without complications; E78.00 Pure hypercholesterolemia, unspecified; Z79.84 Long term (current) use of oral hypoglycemic drugs; Z79.899 Other long term (current) drug therapy; Z87.891 Personal history of nicotine dependence; Z91.048 Other nonmedicinal substance allergy status

== ENCOUNTER → 2020-09-22 | Outpatient (CLI) | payer MEDICARE | END | disposition home or self-care (01) | LOC: LABWHC1 10:50 | PROVIDERS: ATTEND Psychiatry & Neurology Neurology | DX: E53.8 Deficiency of other specified B group vitamins (principal) | CPT/HCPCS: 36415; 82607 ==

== ENCOUNTER → 2020-11-25 | Outpatient (CLI) | payer MEDICARE ==
[2020-11-25 08:56] VITALS: BP 138/84; PULSE 72; RESP 18; TEMP 97.8
--- NOTE | 2020-11-25 09:08 | P.PN ---
Progress Note - Text Progress Note Date: 11/25/20 IIA right breast cancer 2017, [id number]- Angelina is a 75-year-old white female status post right mastectomy on . She had previously undergone a right partial breast mastectomy in November 2016 followed by radiation therapy. She did not have any chemotherapy however she was treated with an anti-hormonal agent letrozole. The patient following her partial mastectomy had persistent discomfort in her right breast and after discussion wished to have a right mastectomy. Following the mastectomy she had a seroma that which developed and this was aspirated multiple times. She underwent a reduction mammoplasty of the left breast in January 2021. She underwent a left breast mammogram and [id number]. This revealed changes after breast reduction mammoplasty felt to be benign. Precautionary measure repeat recommend a repeat left breast mammogram in 6 months. She was last seen September 22, at that time a seroma was noted on the right chest wall and 120 mL was aspirated. She believes that the seroma on the right chest wall has recurred. She is not complaining of any new lumps masses or nodules in the left breast. She saw Dr. Castellon on . She is continuing on Femara. She has a bone density ordered to be done soon. And she was started on vitamin D. She was recently started on B12 as per Dr. Michel. Family history: father: multiple myloma mother: lung cancer sister: breast cancer maternal aunt: melanoma paternal aunt: ? parotid cancer paternal uncle: Esophageal cancer Hormonal history: Menarche: 13 , breast fed: no, age at first : 23 menopause: hysterectomy at 33, done for adenomyosis, did not take ovaries BCP: 2 years hormones: none/antihormone therapy after breast cancer Surgical history: 1. Right lumpectomy/sentinel node biopsy 2. Right mastectomy 3. Hysterectomy 4. Cholecystectomy 5. Right knee replacement 3 last time in 2011 6. Left ankle fracture 7. Bilateral shoulder surgery Medical history: 1. Diabetic 2. High cholesterol Social history: Smoking: Negative stopped many years ago Alcohol: Wine several times a week Drugs: none - Constitutional Constitutional: Denies chills, Denies fever - EENT Eyes: denies blurred vision, denies pain Ears: deny: decreased hearing, tinnitus Ears, nose, mouth and throat: Reports headache, Denies sore throat - Breasts Breasts: bilateral: as per HPI - Cardiovascular Cardiovascular: Denies chest pain, Denies shortness of breath - Respiratory Respiratory: Denies cough - Gastrointestinal Gastrointestinal: Denies abdominal pain, Denies diarrhea, Denies nausea, Denies vomiting - Genitourinary (Female) Genitourinary: Denies dysuria, Denies hematuria - Menstruation Menstruation: Reports post hysterectomy, Reports postmenopausal - Musculoskeletal Musculoskeletal: Reports as per HPI - Integumentary Comment: skin cancer right posterior shoulder, two on face Integumentary: Denies pruritus, Denies rash - Neurological Neurological: Denies numbness, Denies weakness - Psychiatric Psychiatric: Reports depression - Endocrine Endocrine: Denies fatigue, Denies weight change - Hematologic/Lymphatic Comment: aspirin at night 07-08-20 seroma 150 cc aspirated 09-22-20 seroma 120 cc 11-25-20 105 cc Physical examination: Lungs: Clear Heart: Regular rate and rhythm Incision right chest wall seroma clean and dry well-healed Left breast examination was not done at this time Seroma right chest wall Drainage of seroma Area was cleaned using alcohol in 18-gauge needle with a 60 mL syringe was inserted into the area of fluctuance 105 mL were removed. The fluid was serosanguineous in nature. The patient tolerated the procedure with no difficulty Plan: Repeat left breast mammogram 6 months from last 1 she will have this done in [place] and follow-up care She will follow up here in February just before she goes to [place] Continue Femora (letrazol), releasing the Dr. Castellon prior to leaving for [place]
== END ==
LOC: WWCWWP 08:37
PROVIDERS: ATTEND Surgery
DX: L76.34 Postprocedural seroma of skin and subcutaneous tissue following other procedure (principal); E11.9 Type 2 diabetes mellitus without complications; E78.00 Pure hypercholesterolemia, unspecified; Z85.3 Personal history of malignant neoplasm of breast; Z90.11 Acquired absence of right breast and nipple; Z87.891 Personal history of nicotine dependence; Z91.048 Other nonmedicinal substance allergy status

== ENCOUNTER → 2020-12-19 | Outpatient (CLI) | payer MEDICARE ==
--- NOTE | 2020-12-19 15:00 | BD ---
EXAMINATION TYPE: Axial Bone Density DATE OF EXAM: 12/19/2020 COMPARISON: NONE CLINICAL HISTORY: Z 79.890, postmenopausal with hormonal replacement therapy Height: 5 FT 1 IN Weight: 177 FRAX RISK QUESTIONS: Alcohol (3 or more units per day): NO Family History (Parent hip fracture): NO Glucocorticoids (More than 3mos): NO (Ex: prednisone, prednisolone, methylprednisolone, dexamethasone, and hydrocortisone). History of Fracture in Adulthood: YES Secondary Osteoporosis: 1. Type 1 Diabetes: TYPE 2 2. Hyperthyroidism: NO 3. Menopause before 45: NO 4. Malnutrition: NO 5. Chronic liver disease: NO Rheumatoid Arthritis: NO Current Tobacco Use: NO RISK FACTORS HISTORY OF: Surgery to Spine/Hip(right/left)/Wrist (right/left): NO Family History of Osteoporosis: YES Active: NO Diet low in dairy products/other sources of calcium: NO Postmenopausal woman: PART HYST AGE 36 Take estrogen and/or progesterone medications: TOOK HRT FOR SEV YEARS NO LONGER Lost more than 2 inches in height since high school: NO MEDICATIONS: Additional Medications: HORMONE GARY, LEXAPRO, CRESTOR,ZETIA,METFORMIN, JANUVIA, VIT D, GLIPIZIDE JAR DANCE, BABY ASPIRIN Additional History: BREAST CANCER AGE 71 GARY, RADIATION EXAM MEASUREMENTS: Bone mineral densitometry was performed using the [employer] System. Bone mineral density as measured about the Lumbar spine is: ----- L1-L4(G/cm2): 1.237 T Score Values are as follows: ----- L2: 0.3 ----- L3: 1.3 ----- L4: 0.2 ----- L1-L4: 0.5 Bone mineral density has: INCREASED 0.6 % since study of: 2018 Bone mineral density about the R hip (g/cm2): 0.812 Bone mineral density about the L hip (g/cm2): 0.864 T Score values are as follows: -----R Neck: -1.6 -----L Neck: -1.2 -----R Total: -0.8 -----L Total: 0.0 Bone mineral density has: DECREASED -3.5 % since study of: 2018 IMPRESSION: Osteopenia (T Score between -2.5 and -1). There is slightly increased risk of fracture and the patient may be considered for treatment. Re-Screen 2-5 years. NOTE: T-SCORE=SD OF THE YOUNG ADULT MEAN.
== END | disposition home or self-care (01) ==
LOC: RADBDWWP 08:50
PROVIDERS: ATTEND Internal Medicine Hematology & Oncology
DX: M85.89 Other specified disorders of bone density and structure, multiple sites (principal); Z78.0 Asymptomatic menopausal state; Z79.899 Other long term (current) drug therapy
CPT/HCPCS: 77080

== ENCOUNTER → 2021-02-23 | Outpatient (CLI) | payer MEDICARE ==
[2021-02-23 08:49] VITALS: BP 112/82; PULSE 70; RESP 18; TEMP 98.4
== END ==
LOC: WWCWWP 08:30
PROVIDERS: ATTEND Surgery
DX: Z53.9 Procedure and treatment not carried out, unspecified reason (principal)

== ENCOUNTER → 2021-08-17 | Outpatient (CLI) | payer MEDICARE ==
[2021-08-17 10:38] VITALS: BP 119/81; PULSE 66; RESP 17; TEMP 97.9
--- NOTE | 2021-08-17 11:37 | P.PN ---
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 She had previously undergone a right partial breast mastectomy in November 2016 followed by radiation therapy. She did not have any chemotherapy however she was treated with an anti-hormonal agent letrozole. The patient following her partial mastectomy had persistent discomfort in her right breast and after discussion wished to have a right mastectomy. Following the mastectomy she had a seroma that which developed and this was aspirated multiple times. She underwent a reduction mammoplasty of the left breast on 10-27-19. She underwent a left breast mammogram on 04-05-21. This revealed calcifications for which mag views were done. Precautionary measure repeat recommend a repeat left breast mammogram in 6 months. She believes that the seroma on the right chest wall has increased. She is complaining of some dimpling in the left breast. She is also complaining of some discomfort in the breast worse when she sleeps on it. He did have the right chest wall seroma aspirated in March 2021 for 90 mL of fluid in [place]. She saw Dr. Castellon on . His note was reviewed. She is continuing on Femara. Density being followed by Dr. Castellon. She is taking vitamin D and vitamin B12. She was started on B12 by Dr. Michel. Family history: father: multiple myloma mother: lung cancer sister: breast cancer maternal aunt: melanoma paternal aunt: ? parotid cancer paternal uncle: Esophageal cancer Hormonal history: Menarche: 13 , breast fed: no, age at first : 23 menopause: hysterectomy at 33, done for adenomyosis, did not take ovaries BCP: 2 years hormones: none/antihormone therapy after breast cancer Surgical history: 1. Right lumpectomy/sentinel node biopsy 2. Right mastectomy 3. Hysterectomy 4. Cholecystectomy 5. Right knee replacement 3 last time in 2011 6. Left ankle fracture 7. Bilateral shoulder surgery Medical history: 1. Diabetic 2. High cholesterol Social history: Smoking: Negative stopped many years ago Alcohol: Wine several times a week Drugs: none - Constitutional Constitutional: Denies chills, Denies fever - EENT Eyes: denies blurred vision, denies pain Ears: deny: decreased hearing, tinnitus Ears, nose, mouth and throat: Reports headache, Denies sore throat - Breasts Breasts: bilateral: as per HPI - Cardiovascular Cardiovascular: Denies chest pain, Denies shortness of breath - Respiratory Respiratory: Denies cough - Gastrointestinal Gastrointestinal: Denies abdominal pain, Denies diarrhea, Denies nausea, Denies vomiting - Genitourinary (Female) Genitourinary: Denies dysuria, Denies hematuria - Menstruation Menstruation: Reports post hysterectomy, Reports postmenopausal - Musculoskeletal Musculoskeletal: Reports as per HPI - Integumentary Comment: skin cancer right posterior shoulder, two on face Integumentary: Denies pruritus, Denies rash - Neurological Neurological: Denies numbness, Denies weakness - Psychiatric Psychiatric: Reports depression - Endocrine Endocrine: Denies fatigue, Denies weight change - Hematologic/Lymphatic Comment: aspirin at night Objective - Vital Signs Vital signs: Vital Signs Temp 97.9 F 08/17/21 10:34 Pulse 66 08/17/21 10:34 Resp 17 08/17/21 10:34 BP 119/81 08/17/21 10:34 Pulse Ox 97 08/17/21 10:34 FiO2 Intake & Output 08/16/21 08/17/21 08/17/21 18:59 06:59 18:59 Weight 83.007 kg - Exam BMI: 35.7 - Constitutional General appearance: Present: cooperative - EENT Eyes: Present: EOMI ENT: Present: hearing grossly normal - Neck Neck: Present: normal ROM - Respiratory Respiratory: bilateral: CTA - Cardiovascular Rhythm: regular Heart sounds: normal: S1, S2 - Gastrointestinal General gastrointestinal: Present: soft - Integumentary Integumentary: Present: normal turgor - Musculoskeletal Musculoskeletal: Present: gait normal - Psychiatric Psychiatric: Present: A&O x's 3, appropriate affect, intact judgment & insight - Additional findings Additional findings: Breast Exam: BRA: left breast 34C inspection: Story post right mastectomy/seroma chest wall, well-healed scars from prior left reduction mammoplasty Palpation: Right chest wall seroma present no evidence of recurrent cancer Right axilla: No adenopathy of concern Left breast: Multi-positional exam scar tissue present no discrete dominant masses or nodules of concern, some skin dimpling is noted in the lateral aspect of the breast but no masses present at this site Left axilla: No adenopathy of concern Assessment and Plan Assessment: Impression: No evidence of recurrent right breast invasive ductal carcinoma Right chest wall seroma Left breast status post reduction mammoplasty with some probable fat necrosis Plan: Aspiration seroma right chest wall Ultrasound area of dimpling in the left breast rule out any masses Follow up after ultrasound CC: Dr. Bowling, Dr. Salcedo
== END ==
LOC: WWCWWP 10:26
PROVIDERS: ATTEND Surgery
DX: Z85.3 Personal history of malignant neoplasm of breast (principal); Z08 Encounter for follow-up examination after completed treatment for malignant neoplasm; L76.34 Postprocedural seroma of skin and subcutaneous tissue following other procedure; E11.9 Type 2 diabetes mellitus without complications; E78.00 Pure hypercholesterolemia, unspecified; Z90.11 Acquired absence of right breast and nipple; Z87.891 Personal history of nicotine dependence; Z91.048 Other nonmedicinal substance allergy status

== ENCOUNTER → 2021-09-15 | Outpatient (CLI) | payer MEDICARE ==
--- NOTE | 2021-09-15 12:14 | MM ---
Reason for Exam: Follow-up at short interval from prior study. Clinical finding. Last screening mammogram was performed 6 month(s) ago. Patient History: Menarche at age 13. First Full-Term at age 23. Hysterectomy at age 36. Postmenopausal. Other cancer, age 66. Breast cancer, age 71. Previous chest radiation therapy. Patient used Estrogen for 2 years. Patient used Progesterone for 2 years. Patient used Hormonal Contraceptives for 5 years. 10/2019, Reduction on the Left side. 01/2019, Mastectomy on the Right side. 1971, Excisional Biopsy on the Right side. 07/24/2017, Benign Cyst Aspiration on the right side. 11/27/2016, Malignant Core Biopsy on the right side. 10/26/2016, Malignant Core Biopsy on the right side. 12/15/1997, Benign Stereotactic Core Biopsy on the left side. 2016, Radiation Therapy on the right side. Paternal aunt had breast cancer, age 70. Sister had breast cancer, age 50. Prior Study Comparison: 11/06/2018 Left Diagnostic Mammogram, [facility]. 09/09/2019 Left Diagnostic Mammogram, [facility]. 09/13/2020 Left Diagnostic Mammogram, [facility]. 04/05/2021 Left MG 3D diag mammo w/cad LT, Unknown. Tissue Density: Left: The breast tissue is heterogeneously dense. This may lower the sensitivity of mammography. Findings: Analyzed By CAD. Mammogram Persistent distortion with benign round, linear, and dystrophic calcifications in the left breast. Distortion at 2 levels is redemonstrated presumed related to reduction changes with increasing benign calcifications. No suspicious new mass or worrisome cluster of microcalcification. Technique: Method: Whole Breast Handheld. Patient Position: Supine. Findings: The whole breast of the left breast was scanned. Whole left breast ultrasound including evaluation of subareolar and axillary regions. At 2:00 position there is a elongated thin-walled fluid collection presumed seroma 6 cm distance from nipple. At 8:00 position there is heterogeneous avascular area suspected scar tissue correlating with mammogram. Overall Assessment: Benign, BI-RAD 2 Assessment: MG 3D diag mammo w/cad LT - Left: Benign, BI-RAD 2. US breast LT - Left: Benign, BI-RAD 2. Management: Screening Mammogram of the left breast in 1 year. Managed clinically left-sided breast pain. Results were given to the patient verbally at the time of exam. Electronically signed and approved by: Davi Dejesus M.D.
== END | disposition home or self-care (01) ==
LOC: RADUSWWP 09:27
PROVIDERS: ATTEND Surgery
DX: R92.1 Mammographic calcification found on diagnostic imaging of breast (principal); Z85.3 Personal history of malignant neoplasm of breast
CPT/HCPCS: 77065; 76641; G0279; 77061

== ENCOUNTER → 2021-09-21 | Outpatient (CLI) | payer MEDICARE ==
[2021-09-21 08:45] VITALS: BP 100/69; PULSE 71; RESP 16; TEMP 98.1
--- NOTE | 2021-09-21 09:25 | P.PN ---
Subjective Progress Note Date: 09/21/21 right breast stage IIA invasive ductal cancer Stage IIA right breast cancer IIA right breast cancer 2017, [id number]+MA+Her2- Angelina is a 76-year-old white female status post right mastectomy on . She had previously undergone a right partial breast mastectomy in November 2016 followed by radiation therapy. She did not have any chemotherapy however she was treated with an anti-hormonal agent letrozole. The patient following her partial mastectomy had persistent discomfort in her right breast and after discussion wished to have a right mastectomy. Following the mastectomy she had a seroma that which developed and this was aspirated multiple times. She underwent a reduction mammoplasty of the left breast on 10-27-19. She underwent a left breast mammogram on 04-05-21. This revealed calcifications for which mag views were done. Precautionary measure repeat recommend a repeat left breast mammogram in 6 months. She believes that the seroma on the right chest wall has increased. She is complaining of some dimpling in the left breast. She is also complaining of some discomfort in the breast worse when she sleeps on it. He did have the right chest wall seroma aspirated in March 2021 for 90 mL of fluid in [place]. She saw Dr. Castellon on . His note was reviewed. She is continuing on Femara. Density being followed by Dr. Castellon. She is taking vitamin D and vitamin B12. She was started on B12 by Dr. Michel. left breast mammogram done on 09-13-21 BIRAD 3; followed by ultrasound of the left breast on 09-15-21 Birad 2; note Dr. Castellon from 09-01-21 reviewed continue femora and vitamin D; but she has stopped the vitamin D She is here today for a punch biopsy of a lesion in the right axilla; this area seems to have resolved. She does have a repeat seroma on the right chest wall. Family history: father: multiple myloma mother: lung cancer sister: breast cancer maternal aunt: melanoma paternal aunt: ? parotid cancer paternal uncle: Esophageal cancer Hormonal history: Menarche: 13 , breast fed: no, age at first : 23 menopause: hysterectomy at 33, done for adenomyosis, did not take ovaries BCP: 2 years hormones: none/antihormone therapy after breast cancer Surgical history: 1. Right lumpectomy/sentinel node biopsy 2. Right mastectomy 3. Hysterectomy 4. Cholecystectomy 5. Right knee replacement 3 last time in 2011 6. Left ankle fracture 7. Bilateral shoulder surgery Medical history: 1. Diabetic 2. High cholesterol Social history: Smoking: Negative stopped many years ago Alcohol: Wine several times a week Drugs: none - Constitutional Constitutional: Denies chills, Denies fever - EENT Eyes: denies blurred vision, denies pain Ears: deny: decreased hearing, tinnitus Ears, nose, mouth and throat: Reports headache, Denies sore throat - Breasts Breasts: bilateral: as per HPI - Cardiovascular Cardiovascular: Denies chest pain, Denies shortness of breath - Respiratory Respiratory: Denies cough - Gastrointestinal Gastrointestinal: Denies abdominal pain, Denies diarrhea, Denies nausea, Denies vomiting - Genitourinary (Female) Genitourinary: Denies dysuria, Denies hematuria - Menstruation Menstruation: Reports post hysterectomy, Reports postmenopausal - Musculoskeletal Musculoskeletal: Reports as per HPI - Integumentary Comment: skin cancer right posterior shoulder, two on face Integumentary: Denies pruritus, Denies rash - Neurological Neurological: Denies numbness, Denies weakness - Psychiatric Psychiatric: Reports depression - Endocrine Endocrine: Denies fatigue, Denies weight change - Hematologic/Lymphatic Comment: aspirin at night Objective - Vital Signs Vital signs: Vital Signs Temp 98.1 F 09/21/21 08:42 Pulse 71 09/21/21 08:42 Resp 16 09/21/21 08:42 BP 100/69 09/21/21 08:42 Pulse Ox 97 09/21/21 08:42 FiO2 Intake & Output 09/20/21 09/21/21 09/21/21 18:59 06:59 18:59 Weight 79.832 kg - Constitutional General appearance: Present: cooperative - EENT Eyes: Present: EOMI ENT: Present: hearing grossly normal - Neck Neck: Present: normal ROM - Integumentary Integumentary Comment(s): Evaluation of the area of prior scalene in the right axilla has resolved. The patient does however have a seroma in the right chest wall Assessment and Plan Assessment: Impression: Resolution of skin lesion right axilla Seroma right chest wall Recent right breast mammogram and ultrasound performed September 13 and Rosita 8. Benign BIRADS 2 and 3 and repeat mammogram of the left breast is recommended in 6 months Plan: Aspiration seroma right chest wall Repeat left breast mammogram 6 months with physician exam at that time Follow up sooner if seroma returns and right chest wall Area of concern in the right chest wall was prepped using alcohol. An 18-gauge needle on a 60 mL syringe was inserted into the area of seroma and 60 mL of serosanguineous fluid was obtained with complete resolution of the seroma CC: Dr. Castellon, Dr. Bowling
== END ==
LOC: WWCWWP 08:27
PROVIDERS: ATTEND Surgery
DX: L76.82 Other postprocedural complications of skin and subcutaneous tissue (principal); E11.9 Type 2 diabetes mellitus without complications; E78.00 Pure hypercholesterolemia, unspecified; Z90.11 Acquired absence of right breast and nipple; Z87.891 Personal history of nicotine dependence; Z85.3 Personal history of malignant neoplasm of breast; Z91.048 Other nonmedicinal substance allergy status

== ENCOUNTER 2022-01-01 13:46 | Emergency (ER) | payer MEDICARE ==
[2022-01-01 15:22] LABS: Basophils % (A) 1 %; Eosinophils # (A) 0.1 k/uL (0-0.7); Eosinophils % (A) 2 %; HCT 44.1 % (34.0-46.0); HGB 14.9 gm/dL (11.4-16.0); Lymphocytes # (A) 1.2 k/uL (1.0-4.8); Lymphocytes % (A) 26 %; MCH 31.4 pg (25.0-35.0); MCHC 33.7 g/dL (31.0-37.0); MCV 93.1 fL (80.0-100.0); Mean Platelet Volume 9.2; Monocytes # (A) 0.2 k/uL (0-1.0); Monocytes % (A) 5 %; Neutrophils # (A) 2.9 k/uL (1.3-7.7); Neutrophils % (A) 63 %; Platelet Count 132 k/uL (150-450); RBC 4.74 m/uL (3.80-5.40); RDW 13.7 % (11.5-15.5); WBC 4.6 k/uL (3.8-10.6)
[2022-01-01 15:26] LABS: ALT 20 U/L (4-34); AST 18 U/L (14-36); African American GFR (CKD) >90 (>60 ml/min/1.73 sqM); Albumin 4.2 g/dL (3.5-5.0); Alkaline Phosphatase 72 U/L (38-126); Anion Gap 11 mmol/L; Blood Urea Nitrogen 16 mg/dL (7-17); Calcium 9.3 mg/dL (8.4-10.2); Carbon Dioxide 24 mmol/L (22-30); Chloride 104 mmol/L (98-107); Glucose 221 mg/dL (74-99); Non-African American GFR(CKD) 89 (>60 ml/min/1.73 sqM); Potassium 4.2 mmol/L (3.5-5.1); Sodium 139 mmol/L (137-145); Total Bilirubin 0.6 mg/dL (0.2-1.3); Total Protein 6.6 g/dL (6.3-8.2)
[2022-01-01] MEDS ORDERED: MAG HYDROX/AL HYDROX/SIMETH 30 ML, HYOSCYAMINE ELIXIR 10 ML, LIDOCAINE VISCOUS 2% 10 ML PO STA ×3 (16:44)
--- NOTE | 2022-01-01 16:45 | ED ---
General Adult HPI - General Chief complaint: GI Bleed Stated complaint: Blood in stool,abd pain Time Seen by Provider: 01/01/22 16:29 Source: patient Mode of arrival: ambulatory Limitations: no limitations - History of Present Illness Initial comments: Dictation was produced using [employer] dictation software. please excuse any grammatical, word or spelling errors. Chief Complaint: 76-year-old female presents emergency Department with black stools and epigastric pain. History of Present Illness: 76-year-old female presents emergency department for black stools. She saw her primary care doctor earlier this week. She has had blood work drawn. She was told that if the blackness or darkness in her stool became more worse or consistent that she should come to the emergency department. Patient states she had a very dark woeful stool earlier today. She does not take any anticoagulation medications. Denies any history of GI bleed. She does have some mild epigastric pain. Patient denies any rectal pain. She does report that her symptoms feel worse with eating. The ROS documented in this emergency department record has been reviewed and confirmed by me. Those systems with pertinent positive or negative responses have been documented in the HPI. All other systems are other negative and/or noncontributory. PHYSICAL EXAM: General Impression: Alert and oriented x3, not in acute distress HEENT: Normocephalic atraumatic, extra-ocular movements intact, pupils equal and reactive to light bilaterally, mucous membranes moist. Cardiovascular: Heart regular rate and rhythm Chest: Able to complete full sentences, no retractions, no tachypnea Abdomen: abdomen soft, non-tender, non-distended, no organomegaly Musculoskeletal: Pulses present and equal in all extremities, no peripheral edema Motor: no focal deficits noted Neurological: CN II-XII grossly intact, no focal motor or sensory deficits noted Skin: Intact with no visualized rashes Psych: Normal affect and mood Rectal exam: No anal abnormalities, no gross blood with digital rectal exam ED course: 76-year-old female with recent history of black/dark stools. She does report some mild associated epigastric pain. This pain is reproducible palpation to the epigastric area on physical examination. Signs upon arrival are within acceptable limits. Blood work was drawn by charge nurse break TPA protocol. Hemoglobin is normal at 14.9. There is no discrepancy in her hemoglobin when compared to recent results. Metabolic panel is unremarkable. Stool occult blood is negative. Patient observed in emergency department for approximately 3 hours and 40 minutes found to be stable medical condition.Abdominal x-rays unremarkable. Patient given prescription for Bentyl advised follow-up with primary care doctor. EKG interpretation: Ventricular rate 67, sinus rhythm,. Interval 193, Q's 81, QTc 436. No IN prolongation, no QTC prolongation, no ST or T-wave changes noted. Overall, this EKG is unremarkable - Related Data Home Medications Medication Instructions Recorded Confirmed Aspirin 81 mg PO HS 12/02/13 01/01/22 metFORMIN HCL 500 mg PO TID 12/02/13 01/01/22 Ezetimibe [Zetia] 10 mg PO HS 11/23/16 01/01/22 Pantoprazole Sodium 40 mg PO DAILY PRN 11/23/16 01/01/22 Letrozole [Femara] 2.5 mg PO HS 07/22/17 01/01/22 glipiZIDE [Glucotrol] 5 mg PO TID 07/22/17 01/01/22 sitaGLIPtin PHOSPHATE [Januvia] 100 mg PO AC-LUNCH 01/09/19 01/01/22 Rosuvastatin [Crestor] 20 mg PO HS 10/21/19 01/01/22 Empagliflozin [Jardiance] 25 mg PO DAILY 08/17/21 01/01/22 Timolol [Betimol 0.5% Ophth Soln] 1 drop BOTH EYES DAILY 08/17/21 01/01/22 Amitriptyline HCl [Elavil] 10 mg PO HS 01/01/22 01/01/22 Cholecalciferol (Vitamin D3) 75 mcg PO DAILY@1200 01/01/22 01/01/22 [Vitamin D3 (3000 Iu)] Escitalopram [Lexapro] 20 mg PO DAILY 01/01/22 01/01/22 Fluocinolone 0.05% Soln 1 applic TOPICAL BID PRN 01/01/22 01/01/22 HYDROcodone/APAP 10-325MG [[place] 0.5 tab PO TID PRN 01/01/22 01/01/22 10-325] Ketoconazole 2% Shampoo [Nizoral] 1 applic TOPICAL Q3D 01/01/22 01/01/22 Ketorolac 0.5% Ophth Soln [Acular 1 drop LEFT EYE BID 01/01/22 01/01/22 0.5%] Loteprednol Etabonate [Inveltys] 1 drop LEFT EYE BID 01/01/22 01/01/22 Prednisolone Acetate/Pf 1 drop BOTH EYES DAILY PRN 01/01/22 01/01/22 [Prednisolone Acet 1% Eye Drop] Previous Rx's Medication Instructions Recorded Dicyclomine [Bentyl] 20 mg PO QID PRN #16 tablet 01/01/22 Allergies Allergy/AdvReac Type Severity Reaction Status Date / Time adhesive Allergy Intermediate Rash/Hives Verified 01/01/22 17:26 Review of Systems ROS Statement: Those systems with pertinent positive or pertinent negative responses have been documented in the HPI. ROS Other: All systems not noted in ROS Statement are negative. Past Medical History Past Medical History: Cancer, Diabetes Mellitus, GERD/Reflux, Hyperlipidemia, Osteoarthritis (OA), Skin Disorder Additional Past Medical History / Comment(s): Migraines; hx. of pancreatitis; "inverted T waves" in past; rosacea; breast cancer right breast 2016; Last radiation 02/2017; History of Any Multi-Drug Resistant Organisms: C-DIFF Date of last positivie culture/infection: 2002 MDRO Source:: STOOL Past Surgical History: Appendectomy, Bladder Surgery, Breast Surgery, Cholecyst ectomy, Hysterectomy, Joint Replacement, Orthopedic Surgery Additional Past Surgical History / Comment(s): rt knee replacement x3. ORIF left ANKLE. BILATERAL SHOULDER SURGERY FOR SPUR REMOVAL. BILATERAL HEELS BONE SPUR REMOVAL AND PLANTAR FASCITIS SURGERY. left GREAT TOE BONE SPUR REMOVAL. 2017 Right breast lumpectomy x2 with radiation treatment. Colonoscopy 2018(4th) rt knee replacement x3. 01/13/19 rt breast mastectomy; left breast reduction 10/27/19; Past Anesthesia/Blood Transfusion Reactions: Motion Sickness, Postoperative Nausea & Vomiting (PONV) Additional Past Anesthesia/Blood Transfusion Reaction / Comment(s): States was still having nausea after surgery. Past Psychological History: Anxiety Smoking Status: Never smoker Past Alcohol Use History: Occasional Past Drug Use History: None Reported - Past Family History Sister(s) Family Medical History: Cancer Additional Family Medical History / Comment(s): Sister cervical and breast Father Family Medical History: Cancer Additional Family Medical History / Comment(s): bob ballesteros Mother Family Medical History: Cancer Additional Family Medical History / Comment(s): lung General Exam Limitations: no limitations Course Vital Signs 01/01/22 13:52 Temperature 97.9 F Pulse Rate 78 Respiratory 16 Rate Blood Pressure 138/69 O2 Sat by Pulse 98 Oximetry Medical Decision Making - Lab Data Result diagrams: 01/01/22 15:00 01/01/22 15:00 Lab Results 01/01/22 01/01/22 01/01/22 Range/Units 14:55 15:00 15:00 WBC 4.6 (3.8-10.6) k/uL RBC 4.74 (3.80-5.40) m/uL Hgb 14.9 (11.4-16.0) gm/dL Hct 44.1 (34.0-46.0) % MCV 93.1 (80.0-100.0) fL MCH 31.4 (25.0-35.0) pg MCHC 33.7 (31.0-37.0) g/dL RDW 13.7 (11.5-15.5) % Plt Count 132 L (150-450) k/uL MPV 9.2 Neutrophils % 63 % Lymphocytes % 26 % Monocytes % 5 % Eosinophils % 2 % Basophils % 1 % Neutrophils # 2.9 (1.3-7.7) k/uL Lymphocytes # 1.2 (1.0-4.8) k/uL Monocytes # 0.2 (0-1.0) k/uL Eosinophils # 0.1 (0-0.7) k/uL Basophils # 0.0 (0-0.2) k/uL APTT 23.7 (22.0-30.0) sec Sodium (137-145) mmol/L Potassium (3.5-5.1) mmol/L Chloride (98-107) mmol/L Carbon Dioxide (22-30) mmol/L Anion Gap mmol/L BUN (7-17) mg/dL Creatinine (0.52-1.04) mg/dL Est GFR (CKD-EPI)AfAm (>60 ml/min/1.73 sqM) Est GFR (CKD-EPI)NonAf (>60 ml/min/1.73 sqM) Glucose (74-99) mg/dL Calcium (8.4-10.2) mg/dL Total Bilirubin (0.2-1.3) mg/dL AST (14-36) U/L ALT (4-34) U/L Alkaline Phosphatase (38-126) U/L Troponin I (0.000-0.034) ng/mL Total Protein (6.3-8.2) g/dL Albumin (3.5-5.0) g/dL Stool Occult Blood (Negative) Blood Type Blood Type Confirm O Positive Blood Type Recheck Bld Type Recheck Status Antibody Screen Spec Expiration Date 01/01/22 01/01/22 01/01/22 Range/Units 15:00 15:00 15:00 WBC (3.8-10.6) k/uL RBC (3.80-5.40) m/uL Hgb (11.4-16.0) gm/dL Hct (34.0-46.0) % MCV (80.0-100.0) fL MCH (25.0-35.0) pg MCHC (31.0-37.0) g/dL RDW (11.5-15.5) % Plt Count (150-450) k/uL MPV Neutrophils % % Lymphocytes % % Monocytes % % Eosinophils % % Basophils % % Neutrophils # (1.3-7.7) k/uL Lymphocytes # (1.0-4.8) k/uL Monocytes # (0-1.0) k/uL Eosinophils # (0-0.7) k/uL Basophils # (0-0.2) k/uL APTT (22.0-30.0) sec Sodium 139 (137-145) mmol/L Potassium 4.2 (3.5-5.1) mmol/L Chloride 104 (98-107) mmol/L Carbon Dioxide 24 (22-30) mmol/L Anion Gap 11 mmol/L BUN 16 (7-17) mg/dL Creatinine 0.61 (0.52-1.04) mg/dL Est GFR (CKD-EPI)AfAm >90 (>60 ml/min/1.73 sqM) Est GFR (CKD-EPI)NonAf 89 (>60 ml/min/1.73 sqM) Glucose 221 H (74-99) mg/dL Calcium 9.3 (8.4-10.2) mg/dL Total Bilirubin 0.6 (0.2-1.3) mg/dL AST 18 (14-36) U/L ALT 20 (4-34) U/L Alkaline Phosphatase 72 (38-126) U/L Troponin I <0.012 (0.000-0.034) ng/mL Total Protein 6.6 (6.3-8.2) g/dL Albumin 4.2 (3.5-5.0) g/dL Stool Occult Blood (Negative) Blood Type O Positive Blood Type Confirm Blood Type Recheck No Previous Record Bld Type Recheck Status CABO Indicated Antibody Screen NEGATIVE Spec Expiration Date 01/04/2022 - 229901/01/22 Range/Units 16:51 WBC (3.8-10.6) k/uL RBC (3.80-5.40) m/uL Hgb (11.4-16.0) gm/dL Hct (34.0-46.0) % MCV (80.0-100.0) fL MCH (25.0-35.0) pg MCHC (31.0-37.0) g/dL RDW (11.5-15.5) % Plt Count (150-450) k/uL MPV Neutrophils % % Lymphocytes % % Monocytes % % Eosinophils % % Basophils % % Neutrophils # (1.3-7.7) k/uL Lymphocytes # (1.0-4.8) k/uL Monocytes # (0-1.0) k/uL Eosinophils # (0-0.7) k/uL Basophils # (0-0.2) k/uL APTT (22.0-30.0) sec Sodium (137-145) mmol/L Potassium (3.5-5.1) mmol/L Chloride (98-107) mmol/L Carbon Dioxide (22-30) mmol/L Anion Gap mmol/L BUN (7-17) mg/dL Creatinine (0.52-1.04) mg/dL Est GFR (CKD-EPI)AfAm (>60 ml/min/1.73 sqM) Est GFR (CKD-EPI)NonAf (>60 ml/min/1.73 sqM) Glucose (74-99) mg/dL Calcium (8.4-10.2) mg/dL Total Bilirubin (0.2-1.3) mg/dL AST (14-36) U/L ALT (4-34) U/L Alkaline Phosphatase (38-126) U/L Troponin I (0.000-0.034) ng/mL Total Protein (6.3-8.2) g/dL Albumin (3.5-5.0) g/dL Stool Occult Blood Negative (Negative) Blood Type Blood Type Confirm Blood Type Recheck Bld Type Recheck Status Antibody Screen Spec Expiration Date Disposition Clinical Impression: Dark stools, Epigastric pain Disposition: HOME SELF-CARE Condition: Fair Instructions (If sedation given, give patient instructions): Abdominal Pain (ED) Prescriptions: Dicyclomine [Bentyl] 20 mg PO QID PRN #16 tablet PRN Reason: abdominal gas pain Is patient prescribed a controlled substance at d/c from ED?: No Referrals: Henry Bowling MD [Primary Care Provider] - 1-2 days Time of Disposition: 17:54
--- NOTE | 2022-01-01 17:46 | XR ---
EXAMINATION TYPE: XR abdomen 1V DATE OF EXAM: 01/01/2022 COMPARISON: 12/07/2013 HISTORY: Abdominal pain TECHNIQUE: 2 views Upright FINDINGS: No sign of intestinal obstruction or pneumoperitoneum. Fecal pattern is normal. There are c lips from cholecystectomy. Lung bases are clear. No evidence of a mass. IMPRESSION: Nonacute abdomen. No change.
[2022-01-01 18:11] VITALS: BP 133/87; PULSE 73; RESP 18; TEMP 97.4
== END 2022-01-01 18:18 | disposition home or self-care (01) ==
LOC: EC 13:46
DX: K92.1 Melena (principal); R10.13 Epigastric pain; E11.9 Type 2 diabetes mellitus without complications; K21.9 Gastro-esophageal reflux disease without esophagitis; E78.5 Hyperlipidemia, unspecified; M19.90 Unspecified osteoarthritis, unspecified site; Z79.84 Long term (current) use of oral hypoglycemic drugs; Z79.83 Long term (current) use of bisphosphonates; Z79.899 Other long term (current) drug therapy
CPT/HCPCS: 36415; 74018; 80053; 82272; 84484; 85025; 85730; 86850; 86900; 86901; 93005; 99285

== ENCOUNTER → 2022-01-26 | Outpatient (CLI) | payer MEDICARE ==
--- NOTE | 2022-01-26 12:10 | P.PN ---
Subjective Progress Note Date: 01/26/22 IIA right breast cancer 2017, [id number]- Angelina is a 76-year-old white female status post right mastectomy on . She had previously undergone a right partial breast mastectomy in November 2016 followed by radiation therapy. She did not have any chemotherapy however she was treated with an anti-hormonal agent letrozole. The patient following her partial mastectomy had persistent discomfort in her right breast and after discussion wished to have a right mastectomy. Following the mastectomy she had a seroma that which developed and this was aspirated multiple times. She underwent a reduction mammoplasty of the left breast on 10-27-19. She underwent a left breast mammogram on 04-05-21. This revealed calcifications for which mag views were done. Precautionary measure repeat recommend a repeat left breast mammogram in 6 months. She believes that the seroma on the right chest wall has increased. She is complaining of some dimpling in the left breast. She is also complaining of some discomfort in the breast worse when she sleeps on it. He did have the right chest wall seroma aspirated in March 2021 for 90 mL of fluid in [place]. She saw Dr. Castellon on . His note was reviewed. She is continuing on Femara. Density being followed by Dr. Csatellon. She is taking vitamin D and vitamin B12. She was started on B12 by Dr. Michel. left breast mammogram done on 09-13-21 BIRAD 3; followed by ultrasound of the left breast on 09-15-21 Birad 2; note Dr. Castellon from 09-01-21 reviewed continue femora and vitamin D; but she has stopped the vitamin D She is here today for a punch biopsy of a lesion in the right axilla; this area seems to have resolved. She does have a repeat seroma on the right chest wall. 01-26-22 The patient has no complaints related to the chest wall, the seroma has recurred but is smaller in size. No complaints related to the left breast. The axillary rash which we were considering doing a core biopsy in the past and went away has recurred and looks like a fungal infection at this time. Family history: father: multiple myloma mother: lung cancer sister: breast cancer maternal aunt: melanoma paternal aunt: ? parotid cancer paternal uncle: Esophageal cancer Hormonal history: Menarche: 13 , breast fed: no, age at first : 23 menopause: hysterectomy at 33, done for adenomyosis, did not take ovaries BCP: 2 years hormones: none/antihormone therapy after breast cancer Surgical history: 1. Right lumpectomy/sentinel node biopsy 2. Right mastectomy 3. Hysterectomy 4. Cholecystectomy 5. Right knee replacement 3 last time in 2011 6. Left ankle fracture 7. Bilateral shoulder surgery Medical history: 1. Diabetic 2. High cholesterol Social history: Smoking: Negative stopped many years ago Alcohol: Wine several times a week Drugs: none - Constitutional Constitutional: Denies chills, Denies fever - EENT Eyes: denies blurred vision, denies pain Ears: deny: decreased hearing, tinnitus Ears, nose, mouth and throat: Reports headache, Denies sore throat - Breasts Breasts: bilateral: as per HPI - Cardiovascular Cardiovascular: Denies chest pain, Denies shortness of breath - Respiratory Respiratory: Denies cough - Gastrointestinal Gastrointestinal: Denies abdominal pain, Denies diarrhea, Denies nausea, Denies vomiting - Genitourinary (Female) Genitourinary: Denies dysuria, Denies hematuria - Menstruation Menstruation: Reports post hysterectomy, Reports postmenopausal - Musculoskeletal Musculoskeletal: Reports as per HPI - Integumentary Comment: skin cancer right posterior shoulder, two on face Integumentary: Denies pruritus, Denies rash - Neurological Neurological: Denies numbness, Denies weakness - Psychiatric Psychiatric: Reports depression - Endocrine Endocrine: Denies fatigue, Denies weight change - Hematologic/Lymphatic Comment: aspirin at night Objective - Constitutional General appearance: Present: cooperative - EENT Eyes: Present: EOMI ENT: Present: hearing grossly normal - Neck Neck: Present: normal ROM - Respiratory Respiratory: bilateral: CTA - Cardiovascular Rhythm: regular Heart sounds: normal: S1, S2 - Integumentary Integumentary Comment(s): rash right axilla in the anterior aspect - Musculoskeletal Musculoskeletal: Present: gait normal - Psychiatric Psychiatric: Present: A&O x's 3, appropriate affect, intact judgment & insight - Additional findings Additional findings: Breast examination: BRA: 44C Inspection: Patient status post right mastectomy there is a seroma present but no evidence of recurrent cancer on the chest wall, left breast reduction mammoplasty changes noted Palpation: Right chest wall seroma present, there is a rash in the anterior aspect of the right axilla which has been present in the past but went away and then came back again No evidence of any recurrent cancer Right axilla: No adenopathy of concern Left breast: Post operative changes from reduction mammoplasty well-healed no evidence of any dominant masses nodules of concern, fibrocystic changes Left axilla: No adenopathy of concern Assessment and Plan Assessment: Impression/ plan: Patient status post right breast mastectomy with recurrent chronic seromas smaller at this time but the patient is going to [place] and would like to have it aspirated prior to going Left breast no evidence of any disease of concern she is due for a mammogram in March and this will be done in [place] Nystatin for the rash in the right axilla if this is persistent and a biopsy will be done when she returns or he can be done in [place] CC: Dr. Bowling
[2022-01-26 12:21] VITALS: BP 109/75; PULSE 75; RESP 17; TEMP 98.4
== END | disposition home or self-care (01) ==
LOC: WWCWWP 11:42
PROVIDERS: ATTEND Surgery
DX: Z53.9 Procedure and treatment not carried out, unspecified reason (principal)

== ENCOUNTER → 2022-05-24 | Outpatient (CLI) | payer MEDICARE ==
[2022-05-24 10:13] VITALS: BP 146/69; PULSE 87; RESP 16; TEMP 98
--- NOTE | 2022-05-24 10:22 | P.PN ---
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 She had previously undergone a right partial breast mastectomy in November 2016 followed by radiation therapy. She did not have any chemotherapy however she was treated with an anti-hormonal agent letrozole. The patient following her partial mastectomy had persistent discomfort in her right breast and after discussion wished to have a right mastectomy. Following the mastectomy she had a seroma that which developed and this was aspirated multiple times. She underwent a reduction mammoplasty of the left breast on 10-27-19. She underwent a left breast mammogram on 2922 which revealed suspicious calcifications in the inner lower left breast for which stereotactic core biopsy was recommended. She has had seroma from the right chest wall aspirated multiple times. It is not bothering her at this time. She is not continuing the Femora. She had been on it for 5 years. She is taking vitamin D and vitamin B12. She was started on B12 by Dr. Michel. 05-24-22 Stero biopsy of the left breast was done on 05-16-22. Pathology was benign. She tolerated the procedure without difficulty. Family history: Father: Multiple myeloma Mother: Lung cancer Sister: Breast cancer Maternal aunt: Melanoma Paternal aunt: Questionably parotid cancer Paternal uncle: Esophageal cancer Hormonal history: Menarche: 13 , press-fit, no, age of first at 23 Menopause: Hysterectomy at 33, done for adenomyosis did not take ovaries control pills: 2 years Hormones: None, anti-hormonal therapy after breast cancer Medical history: High cholesterol diabetes arthritis Social history: Right breast lumpectomy/sentinel node biopsy Right mastectomy Hysterectomy Cholecystectomy Right knee replacement 3 last time in 2011 Left ankle fracture Bilateral shoulder surgery Social history: Smoking: Negative stopped many years ago Alcohol: Wine several times a week Drugs: Negative Review of systems: HEENT negative Lungs: Negative Cardiovascular: Negative GI: Negative : Negative Status post hysterectomy Integument: Skin cancer right posterior shoulder, 2 skin cancers on face Psychiatric: Depression Endocrine: Negative Hematologic: Aspirin at night Objective - Vital Signs Vital signs: Intake & Output 05/23/22 05/24/22 05/24/22 18:59 06:59 18:59 Weight 80.286 kg - Constitutional General appearance: Present: cooperative - EENT Eyes: Present: EOMI ENT: Present: hearing grossly normal - Neck Neck: Present: normal ROM - Respiratory Respiratory: bilateral: CTA - Cardiovascular Heart sounds: normal: S1, S2 - Integumentary Integumentary Comment(s): biopsy site left breast clean and dry Assessment and Plan Assessment: Impression: High cholesterol diabetes arthritis stage II right breast cancer no evidence of recurrence Plan: left breast mammogram in 6 months with appointment follow up Dr. Valencia cc: Dr. Bowling
== END ==
LOC: WWCWWP 09:21
PROVIDERS: ATTEND Surgery
DX: Z85.3 Personal history of malignant neoplasm of breast (principal); E78.00 Pure hypercholesterolemia, unspecified; E11.9 Type 2 diabetes mellitus without complications; M19.90 Unspecified osteoarthritis, unspecified site; Z91.048 Other nonmedicinal substance allergy status; Z87.891 Personal history of nicotine dependence

== ENCOUNTER 2022-08-24 07:50 | Day surgery (SDC) | payer MEDICARE ==
[2022-08-22 15:52] VITALS: BMI 34.9
[2022-08-24] MEDS ORDERED: ONDANSETRON 4 MG/2 ML VIAL ONE (08:13)
[2022-08-24] MEDS ORDERED: HYDROmorphone 0.5 MG/0.5 ML SYRINGE IVP PRN (08:19)
[2022-08-24] MEDS ORDERED: DEXAMETHASONE SOD PHOSPHATE 4 MG/ML 1 ML VIAL IV ONE (08:19)
[2022-08-24] MEDS ORDERED: MIDAZOLAM 2 MG/2 ML VIAL IV PRN (08:19)
[2022-08-24] MEDS ORDERED: LACTATED RINGERS 1,000 ML IV SCH (08:19)
[2022-08-24] MEDS ORDERED: ONDANSETRON 4 MG/2 ML VIAL IVP ONE (08:19)
[2022-08-24 08:37] LABS: Glucose,Whole Blood 232 mg/dL (70-110)
[2022-08-24] MEDS ORDERED: fentaNYL (PF) 50 MCG/ML 2 ML AMP IVP ONE (08:51)
[2022-08-24] MEDS ORDERED: MIDAZOLAM 2 MG/2 ML VIAL IVP ONE (08:51)
[2022-08-24] MEDS ORDERED: PROPOFOL 10 MG/ML 20 ML VIAL IV ONE (09:38)
[2022-08-24] MEDS ORDERED: LIDOCAINE 2% INJ 20 MG/ML (2 ML VIAL) ONE (09:38)
[2022-08-24] MEDS ORDERED: HYDROmorphone (PF) 1 MG/ML ONE (09:38)
[2022-08-24] MEDS ORDERED: ROPIVACAINE 5 MG/ML 30 ML VIAL ONE (09:38)
[2022-08-24] MEDS ORDERED: fentaNYL (PF) 50 MCG/ML 2 ML AMP ONE (09:38)
[2022-08-24] MEDS ORDERED: SODIUM CHLORIDE 0.9% (PF) 10 ML VIAL ONE (09:38)
[2022-08-24] MEDS ORDERED: ceFAZolin 1,000 MG in SODIUM CHLORIDE 0.9% 1,000 ML IRRIGATION ONE (09:43)
--- NOTE | 2022-08-24 10:50 | P.OP ---
Date of Procedure: 08/24/22 Preoperative Diagnosis: Hallux rigidus left foot Postoperative Diagnosis: Same Procedure(s) Performed: First metatarsal phalangeal joint arthrodesis left foot Implants: Arthrex MaxForce plate and screws Anesthesia: MANSOOR Surgeon: Mario Gupta Estimated Blood Loss (ml): 1 Pathology: none sent Condition: stable Disposition: PACU Description of Procedure: Prior to the patient being brought to the operating room, anesthesia administered a nerve block on the surgical extremity. Then the patient was brought into the operating room and placed on table in the supine position. Timeout was taken to confirm correct patient identifiers, correct lateral surg daniella, and correct procedure. Once the staff in the room were in agreement with the timeout, the patient was induced and placed under general anesthesia. A well-padded tourniquet was placed on the ankle and then the foot was prepped and draped in the usual manner. The right foot was exsanguinated and the tourniquet inflated to 250 mmHg. Attention was directed over the dorsal aspect of the first metatarsal phalangeal joint, where a linear incision was made between the long extensor tendon and the neurovascular structures. The incision was deepened down to the subcutaneous layer careful to identify, avoid, and retract any neurovascular structures and cauterize any bleeding vessels. Blunt dissection was continued through the subcutaneous layer down to the periosteum and capsule. A linear periosteal and capsular incision was made medial to the long extensor tendon. Those tissues were then sharply reflected off of the first metatarsal head and shaft as well as the base of the proximal phalanx. The soft tissue was released around the joint so that the joint could be mobilized and accessed. A guidewire was placed through the central aspect of the first metatarsal head parallel to the long access and within the medullary canal. Appropriate size reamers were used to shape the first metatarsal head. Then a concave reamer was inserted over the guidewire and used to remove the articular cartilage and subchondral bone. The wire was removed was used to aggressively fenestrate the head of the first metatarsal. The guidewire was then inserted at the central aspect of the articular surface of the base of the proximal phalanx. The wire was advanced parallel to the long access and within the medullary canal. The convex reamer was then used to remove the articular cartilage and subchondral bone. The guidewire was removed and used to fenestrate the surface. The wound is then thoroughly irrigated with antibiotic saline. Arthrex Arthrocell was placed between the arthrodesis segments. A 0 band first metatarsal phalangeal joint fusion plate was then positioned dorsally over the site. Temporary fixation was used to hold the plate in place. Fluoroscopy was used to check the placement of the plate as well as the joint alignment. Once both positions were satisfactory, a combination of locking and nonlocking screws were placed in the distal part of the plate into the proximal phalanx. The position of the joint and plate were checked again under fluoroscopy. Once both were satisfactory, a wire was placed in the base of the proximal phalanx and across the arthrodesis site to maintain the alignment. The offset drill guide was then placed in the compression slot of the plate. The guide was removed and then the compression device was inserted through the drill hole in engaged with the plate. The compression device was turned to further compress the joint. While holding a compressed another temporary fixation wire was used to hold it in place. A drill hole through the proximal compression slot was then made and a nonlocking screw was inserted and tightened until it engaged the plate and provided further compression across the arthrodesis site. A nonlocking screw was then placed in the drill hole in the proximal aspect of the plate closest to the joint line. The final screw was a locking screw placed in the most proximal hole the plate. Final fluoroscopic imaging showed proper placement of all hardware, maintaining correction of the joint, and excellent compression across the arthrodesis site. The temporary fixation wire was removed and the joint thoroughly irrigated with antibiotic saline. The capsule and periosteal tissues were closed with 0 Vicryl. Subcu closure was done with 4-0 Monocryl. And skin closure was done with 4-0 Stratafix in a running subcuticular manner. Dermal glue was placed around the incision, and once dried, Steri-Strips are placed across incision. An Arthrex jumpstart dressing was placed directly over the incision and then a dry sterile dressings applied to the right foot. The tourniquet was released and capillary refill return to all digits on the right foot. The patient was then placed in a well-padded, well molded plaster posterior mold/sugar tong splint. The ankle was held in neutral position until the splint was dried. Then anesthesia was reversed and the patient was taken recovery with vital signs stable.
[2022-08-24 10:58] VITALS: TEMP 99
[2022-08-24] MEDS ORDERED: HYDROcodone/APAP 5-325MG 1 EACH TAB ONE (11:59)
[2022-08-24] MEDS ORDERED: HYDROcodone/APAP 5-325MG 1 EACH TAB PO ONE (12:00)
--- NOTE | 2022-08-24 12:06 | P.ANPRN ---
Procedure Note - Anesthesia - Nerve Block Performed Left Popliteal Single Time Out Performed: Yes (0850) Date of Procedure: 08/24/22 Procedure Start Time: 08:51 Procedure Stop Time: 08:56 Location of Patient: PreOp Indication: Acute Post-Operative Pain, Requested by Surgeon Specifically requested for management of pain by DrMatt: Mario Gupta Sedation Type: Sedate with meaningful contact maintained Preparation: Sterile Prep Position: Supine Catheter: None Needle Types: Pajunk Needle Gauge: 21 Ultrasound used to visualize needle placement: Yes Ultrasound used to observe medication spread: Yes Injectate: 0.5% Ropivacaine (see comment for volume) (15cc + 10cc nacl pf) Blood Aspirated: No Pain Paresthesia on Injection Noted: No Resistance on Injection: Normal Image Stored and Saved: Yes Events: Uneventful and Well Tolerated
--- NOTE | 2022-08-24 12:07 | P.ANPRN ---
Procedure Note - Anesthesia - Nerve Block Performed Left Adductor Canal Single Time Out Performed: Yes (0850) Date of Procedure: 08/24/22 Procedure Start Time: 08:57 Procedure Stop Time: 08:59 Location of Patient: PreOp Indication: Acute Post-Operative Pain, Requested by Surgeon Specifically requested for management of pain by DrMatt: Mario Gupta Sedation Type: Sedate with meaningful contact maintained Preparation: Sterile Prep Position: Supine Catheter: None Needle Types: Pajunk Needle Gauge: 21 Ultrasound used to visualize needle placement: Yes Ultrasound used to observe medication spread: Yes Injectate: 0.5% Ropivacaine (see comment for volume) (15cc + 10cc nacl pf) Blood Aspirated: No Pain Paresthesia on Injection Noted: No Resistance on Injection: Normal Image Stored and Saved: Yes Events: Uneventful and Well Tolerated
[2022-08-24 12:32] VITALS: BP 118/78; PULSE 70; RESP 20
[2022-08-24] MEDS ORDERED: ONDANSETRON ODT 4 MG TAB PO ONE (12:39)
== END 2022-08-24 12:50 | disposition home or self-care (01) ==
LOC: OR 07:50
PROVIDERS: ATTEND Podiatrist
DX: M20.22 Hallux rigidus, left foot (principal); M19.072 Primary osteoarthritis, left ankle and foot; G89.18 Other acute postprocedural pain; E78.5 Hyperlipidemia, unspecified; E10.9 Type 1 diabetes mellitus without complications; Z90.710 Acquired absence of both cervix and uterus; Z90.49 Acquired absence of other specified parts of digestive tract; Z96.651 Presence of right artificial knee joint; Z86.59 Personal history of other mental and behavioral disorders; Z87.891 Personal history of nicotine dependence
CPT/HCPCS: 64447; 64445; 28750; C1713; J2250; J1100; J0690 ×2; J2405; J3010; J1170; J2795; J2704; J2001

== ENCOUNTER → 2023-02-01 | Outpatient (CLI) | payer MEDICARE ==
--- NOTE | 2023-02-04 12:13 | BD ---
EXAMINATION TYPE: Axial Bone Density DATE OF EXAM: 02/01/2023 CLINICAL HISTORY: 77 years old Female. ICD-10 CODE: M85.9 DISORDER OF BONE DENSITY Height: 5 ft 1 in Weight: 177 FRAX RISK QUESTIONS: Alcohol (3 or more units per day): no Family History (Parent hip fracture): no Glucocorticoids (More than 3mos): no (Ex: prednisone, prednisolone, methylprednisolone, dexamethasone, and hydrocortisone). History of Fracture in Adulthood: yes Secondary Osteoporosis: 1. Type 1 Diabetes: type 2 2. Hyperthyroidism: no 3. Menopause before 45: no 4. Malnutrition: no 5. Chronic liver disease: no Rheumatoid Arthritis: no Current Tobacco Use: no RISK FACTORS HISTORY OF: Surgery to Spine/Hip(right/left)/Wrist (right/left): no Family History of Osteoporosis: yes Active: no Diet low in dairy products/other sources of calcium: no Postmenopausal woman: yes Take estrogen and/or progesterone medications: no Lost more than 2 inches in height since high school: no Frequent falls: no Poor Health: good Hyperparathyroidism: no Adrenal Insufficiency: no MEDICATIONS: Additional Medications: vit d , amitriptyline, aspirin, Crestor, dicyclomine, Effexor, glipizide, Lyle uvia, jardiance, Lumigan, metformin, pantoprazole, preservation, Additional History: EXAM MEASUREMENTS: Bone mineral densitometry was performed using the [employer] System. Bone mineral density as measured about the Lumbar spine is: ----- L1-L4(G/cm2): 1.265 T Score Values are as follows: ----- L1: 0.9 ----- L2: 1.2 ----- L3: 1.2 ----- L4: -0.4 ----- L1-L4: 0.7 Z Score Values are as follows: ----- L1: 2.1 ----- L2: 2.5 ----- L3: 2.5 ----- L4: 0.9 ----- L1-L4: 2.0 Bone mineral density has: increased 2.3 % since study of: 2020 Bone mineral density about the R hip (g/cm2): 0.788 Bone mineral density about the L hip (g/cm2): 0.838 T Score values are as follows: -----R Neck: -1.8 -----L Neck: -1.4 -----R Total: -1.0 -----L Total: -0.1 Z Score values are as follows: -----R Neck: -0.1 -----L Neck: 0.2 -----R Total: 0.5 -----L Total: 1.3 Bone mineral density has: decreased -2.5 % since study of: 2020 FRAX%s: The graph provided illustrates a 18.6 % chance for a major osteoporotic fx and a 4.1 % chance for the hips probability for fx in 10 years time. IMPRESSION: Osteopenia (T Score between -2.5 and -1). There is slightly increased risk of fracture and the patient may be considered for treatment. Re-Screen 2-5 years. NOTE: T-SCORE=SD OF THE YOUNG ADULT MEAN.
== END | disposition home or self-care (01) ==
LOC: RADBDWWP 10:29
PROVIDERS: ATTEND Internal Medicine Hematology & Oncology
DX: M85.89 Other specified disorders of bone density and structure, multiple sites (principal); C50.411 Malignant neoplasm of upper-outer quadrant of right female breast; G43.909 Migraine, unspecified, not intractable, without status migrainosus; Z78.0 Asymptomatic menopausal state; Z71.89 Other specified counseling; Z71.3 Dietary counseling and surveillance
CPT/HCPCS: 77080

== ENCOUNTER 2023-09-13 09:18 | Day surgery (SDC) | payer MEDICARE ==
[2023-09-10 10:20] VITALS: BMI 34.9
--- NOTE | 2023-09-12 16:30 | HP ---
HISTORY AND PHYSICAL CHIEF COMPLAINT: Recurrent fluid in both ears. HISTORY OF PRESENT ILLNESS: The patient is a 78-year-old female, who was recently seen in my office complaining of having a plugged sensation in both ears. At the time that the patient was examined, clinical examination revealed fluid in both ears. The patient was placed on a course of dexamethasone for 2 weeks. When she returned, she stated the ears were no better and clinical examination revealed she still had fluid in both ears. It was therefore recommended that she undergo a bilateral myringotomy with insertion of ventilation tubes under IV sedation with MAC. PAST MEDICAL HISTORY: Reveals she has no allergies to medications. CURRENT MEDICATIONS: Include: 1. Crestor. 2. Jardiance. 3. Glipizide. 4. Metformin. 5. Januvia. 6. PreserVision. 7. Zyrtec. 8. Lumigan. REVIEW OF SYSTEMS: CARDIOVASCULAR: Negative. GASTROINTESTINAL: Negative. METABOLIC/ENDOCRINE: Positive for type 2 diabetes mellitus and hypercholesterolemia. SPECIAL SENSES: Positive for glaucoma. The remainder of the review of systems is unremarkable. OBJECTIVE: HEENT: The patient is normocephalic. Both tympanic membranes are dull with fluid in both middle ear spaces. Pupils are equal, round, reactive to light and accommodation. Extraocular movements within normal limits. Intranasal examination reveals moderate to severe septal deviation with compensatory hypertrophy of the inferior turbinates and a moderate amount of mucus on the mucous membrane draining down to posterior pharynx. Examination of oropharynx and the remainder of the head and neck exam are within normal limits. CHEST/CARDIOVASCULAR: Both lung hayden are clear to percussion and auscultation. The patient is in regular sinus rhythm. S1, S2 are present without any murmurs, S3s or S4s. Peripheral pulses are bilaterally symmetrical. ABDOMEN: There are no evidence any masses, megaly, or tenderness. The abdomen is soft. SKIN: Unremarkable. MUSCULOSKELETAL/NEUROLOGIC: Within normal limits. PELVIC/RECTAL: Deferred at this time because the patient has done on a regular basis at her family physician's office. The remainder of the physical exam is unremarkable. IMPRESSION: Chronic bilateral serous otitis media. PLAN: The patient is scheduled to undergo a bilateral myringotomy with insertion of ventilation tubes under IV sedation with MAC. Attention, RNs in the pre-surgical area: I have not ordered any pre-surgical prophylactic antibiotics for this patient. If the pharmacy department sends any pre- surgical prophylactic antibiotics to the pre-surgical area for this patient, please cancel that order and return the medication to the pharmacy department. I have discussed the risks, benefits and alternative therapies for the above-mentioned procedure and for both sedation/analgesia as well as necessary blood product administration, if indicated, as they pertain to this patient. The patient has indicated his or her understanding and acceptance of the risks and procedures discussed. MMAURELIAL / IJN: [id number] /
[~2023-09-13 09:18] MED LIST changes: -HEPARIN SODIUM,PORCINE 5,000 UNIT/ML 1 ML VIAL ONE; +HYDROmorphone 0.5 MG/0.5 ML SYRINGE IVP PRN; +MIDAZOLAM 2 MG/2 ML VIAL IV PRN; -ONDANSETRON 4 MG/2 ML VIAL ONE; +Pre Op ABX Message 1 EACH MISC MISCELLANE ONE; +fentaNYL (PF) 50 MCG/ML 2 ML AMP IVP PRN
[2023-09-13 10:05] VITALS: TEMP 97.8
[2023-09-13] MEDS: IV FLUID CONTINUATION 1,000 ML IV ONE (10:06)
[2023-09-13 10:29] LABS: Glucose,Whole Blood 214 mg/dL (70-110)
[2023-09-13] MEDS: DEXAMETHASONE SOD PHOSPHATE 4 MG/ML 1 ML VIAL IV ONE (10:29)
[2023-09-13] MEDS: LACTATED RINGERS 1,000 ML IV SCH (10:29)
[2023-09-13] MEDS: ONDANSETRON 4 MG/2 ML VIAL IVP ONE (10:29)
[2023-09-13] MEDS: LIDOCAINE 1% (10MG/ML) FOR IV START INTRADERMA PRN (10:30)
[2023-09-13] MEDS ORDERED: PROPOFOL 10 MG/ML 20 ML VIAL IV ONE (11:58)
[2023-09-13] MEDS ORDERED: MIDAZOLAM 2 MG/2 ML VIAL ONE (11:58)
[2023-09-13] MEDS ORDERED: fentaNYL (PF) 50 MCG/ML 2 ML AMP ONE (11:58)
[2023-09-13] MEDS: OFLOXACIN 0.3% OPHTH DROPS 5 ML BOTTLE BOTH EARS ONE (12:14)
[2023-09-13] MEDS: EPINEPHrine 1 MG/ML (MDV) 30 ML VIAL SQ ONE (12:22)
[2023-09-13 13:07] VITALS: RESP 16
[2023-09-13 13:33] VITALS: BP 131/72; PULSE 70
--- NOTE | 2023-09-16 17:36 | OP ---
OPERATIVE REPORT DATE OF SERVICE : 09/13/2023 PREOPERATIVE DIAGNOSIS: Chronic bilateral serous otitis media. POSTOPERATIVE DIAGNOSIS: Chronic bilateral serous otitis media. ANESTHESIA: IV sedation with M.A.C. OPERATIVE PROCEDURE: Bilateral myringotomy with insertion of bilateral plastic Jammie-Bobbin ventilation tubes. COMPLICATIONS: None. ESTIMATED BLOOD LOSS: 0. DESCRIPTION OF PROCEDURE: The patient was placed on the operating table in supine position and after uneventful IV sedation, satisfactory sedation was obtained. Next, the patient's right ear was prepped and draped in usual and customary fashion. Following this, using the Zeiss operating microscope and a #3 aural speculum, the right external auditory canal was cleansed of all wax and debris. Initially, it was noted that what appeared to be the right tympanic membrane was in fact a hard layer of wax covering the right tympanic membrane, creating a so-called monomeric tympanic membrane consisting of wax. Using a combination of a pick, a myringotomy knife and a right angle elevator with waxy covering was removed in an atraumatic fashion. Once the true tympanic membrane was visible, it was noted that there was fluid in the right middle ear space. Therefore, using the myringotomy knife, an incision was made in the anterior-inferior quadrant of the right tympanic membrane and a plastic Jammie-Bobbin ventilation tube was inserted without difficulty after suctioning the fluid from the middle ear space. Next, attention was directed to the left ear where the same procedure was carried out using the Zeiss operating microscope and a #3 aural speculum. The left external auditory canal was cleansed of all wax and debris. Next, using the myringotomy knife, an incision was made in the left tympanic membrane in the anterior-inferior quadrant and the middle ear space was suctioned free of all fluid. Next, a plastic Jammie-Bobbin ventilation tube was inserted in the left myringotomy incision without difficulty. At this point, the procedure was terminated. There were no intraoperative complications. The patient tolerated the procedure well and was returned to the recovery room in satisfactory condition. MMODL / IJN: [id number] /
== END 2023-09-13 14:07 | disposition home or self-care (01) ==
LOC: OR 09:18
PROVIDERS: ATTEND Otolaryngology
DX: H65.23 Chronic serous otitis media, bilateral (principal); E78.5 Hyperlipidemia, unspecified; M19.90 Unspecified osteoarthritis, unspecified site; E11.9 Type 2 diabetes mellitus without complications; G43.909 Migraine, unspecified, not intractable, without status migrainosus; F32.A Depression, unspecified; K21.9 Gastro-esophageal reflux disease without esophagitis; K85.90 Acute pancreatitis without necrosis or infection, unspecified; Z85.3 Personal history of malignant neoplasm of breast; Z79.84 Long term (current) use of oral hypoglycemic drugs; Z79.899 Other long term (current) drug therapy
CPT/HCPCS: 69436; J0171; J2250; J2405; J3010; J2704

== ENCOUNTER → 2023-11-21 | Outpatient (CLI) | payer MEDICARE ==
[2023-11-21 11:49] VITALS: PULSE 82; RESP 17; TEMP 98.1
== END ==
LOC: WWCWWP 10:43
PROVIDERS: ATTEND Surgery

== ENCOUNTER → 2023-11-21 | Outpatient (CLI) | payer MEDICARE ==
--- NOTE | 2023-11-21 11:31 | MM ---
Reason for Exam: Hx of breast cancer, mastectomy. Last screening mammogram was performed 12 month(s) ago. Patient History: Menarche at age 13. First Full-Term at age 23. Hysterectomy at age 36. Postmenopausal. Other cancer, age 66. Breast cancer, age 71. Previous chest radiation therapy. Patient used Estrogen for 2 years. Patient used Progesterone for 2 years. Patient used Hormonal Contraceptives for 5 years. 05/16/2022, Benign MG stereo VAD BX LT on the left side. 10/2019, Reduction on the Left side. 01/2019, Mastectomy on the Right side. 1971, Excisional Biopsy on the Right side. 07/24/2017, Benign Cyst Aspiration on the right side. 11/27/2016, Malignant Core Biopsy on the right side. 10/26/2016, Malignant Core Biopsy on the right side. 12/15/1997, Benign Stereotactic Core Biopsy on the left side. 2016, Radiation Therapy on the right side. Paternal aunt had breast cancer, age 70. Sister had breast cancer, age 50. Prior Study Comparison: 04/05/2021 Left MG 3D diag mammo w/cad LT, Unknown. 09/15/2021 Left MG 3D diag mammo w/cad LT, [facility]. 11/16/2022 Left MG 3D diag mammo w/cad LT, [facility]. Tissue Density: Left: The breasts are heterogeneously dense, which may obscure small masses. Findings: Analyzed By CAD. Postoperative distortion left breast. Dystrophic calcifications. No evidence for mass or suspicious cluster of microcalcifications at this time. Overall Assessment: Benign, BI-RAD 2 Management: Diagnostic Mammogram of the left breast in 1 year. . Results were given to the patient verbally at the time of exam. Patient should continue monthly self-breast exams. A clinical breast exam by your physician is recommended on an annual basis. This exam should not preclude additional follow-up of suspicious palpable abnormalities. Note on Sari scores and lifetime risk: 1. A Sari score greater than 3% is considered moderate risk. If this is the case, consider specialist referral to assess eligibility for a risk reducing agent. 2. If overall lifetime risk for the development of breast cancer is 20% or higher, the patient may qualify for future screening with alternating mammogram and breast MRI. Electronically signed and approved by: Trenton Morris M.D. Radiologis
--- NOTE | 2023-11-21 11:37 | P.PN ---
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 She had previously undergone a right partial breast mastectomy in November 2016 followed by radiation therapy. She did not have any chemotherapy however she was treated with an anti-hormonal agent letrozole. The patient following her partial mastectomy had persistent discomfort in her right breast and after discussion wished to have a right mastectomy. Following the mastectomy she had a seroma that which developed and this was aspirated multiple times. She underwent a reduction mammoplasty of the left breast on 10-27-19. She underwent a left breast mammogram on 2922 which revealed suspicious calcifications in the inner lower left breast for which stereotactic core biopsy was recommended. She has had seroma from the right chest wall aspirated multiple times. It is not bothering her at this time. She is not continuing the Femora. She had been on it for 5 years. She is taking vitamin D and vitamin B12. She was started on B12 by Dr. Michel. 05-24-22 Stero biopsy of the left breast was done on 05-16-22. Pathology was benign. She tolerated the procedure without difficulty. left breast mammo 11-16-22 BIRAD 2 The patient has not complained of any new lumps masses or nodules of concern in her right chest wall or in her left breast 11-21-23 left mammogram on 11-21-23 BIRAD [address] Graham not complaining of any lesions of concern on the left breast or left chest wall Family history: Father: Multiple myeloma Mother: Lung cancer Sister: Breast cancer Maternal aunt: Melanoma Paternal aunt: Questionably parotid cancer Paternal uncle: Esophageal cancer Hormonal history: Menarche: 13 , press-fit, no, age of first at 23 Menopause: Hysterectomy at 33, done for adenomyosis did not take ovaries control pills: 2 years Hormones: None, anti-hormonal therapy after breast cancer Medical history: High cholesterol diabetes arthritis Social history: Right breast lumpectomy/sentinel node biopsy Right mastectomy Hysterectomy Cholecystectomy Right knee replacement 3 last time in 2011 Left ankle fracture Bilateral shoulder surgery Social history: Smoking: Negative stopped many years ago Alcohol: Wine several times a week Drugs: Negative Review of systems: HEENT negative Lungs: Negative Cardiovascular: Negative GI: Negative : Negative Status post hysterectomy Integument: Skin cancer right posterior shoulder, 2 skin cancers on face Psychiatric: Depression Endocrine: Negative Hematologic: Aspirin at night Objective - Constitutional General appearance: Present: cooperative - EENT Eyes: Present: EOMI ENT: Present: hearing grossly normal - Neck Neck: Present: normal ROM - Respiratory Respiratory: bilateral: CTA - Cardiovascular Rhythm: regular Heart sounds: normal: S1, S2 - Integumentary Integumentary: Present: normal turgor - Musculoskeletal Musculoskeletal: Present: gait normal - Psychiatric Psychiatric: Present: A&O x's 3, appropriate affect, intact judgment & insight - Additional findings Additional findings: Breast examination: Right chest wall: Small seroma to be aspirated today no evidence of any recurrent disease Right axilla: No adenopathy of concern Left breast: Status post reduction mammoplasty incisions clean and dry well- healed no dominant masses or nodules of concern Left axilla: No adenopathy of concern Assessment and Plan Assessment: Impression: High cholesterol diabetes arthritis stage II right breast cancer no evidence of recurrence left mammogram on 11-21-[address] Graham Plan: left breast mammogram in one year follow up in one year follow up Dr. Valencia aspiration of seroma right chest wall the area of concern was prepped in the right chest wall using alcohol. An 18 G needle on a 20 CC syringe was used to aspirate 51 cc of dark colored fluid. There was complete resolution of the area. She tolerated it in stable condition. cc: Dr. Bowling
== END | disposition home or self-care (01) ==
LOC: RADMAMWWP 10:40
PROVIDERS: ATTEND Surgery
DX: Z85.3 Personal history of malignant neoplasm of breast
CPT/HCPCS: 77061; 77065

== ENCOUNTER → 2023-12-31 | Outpatient (CLI) | payer MEDICARE ==
--- NOTE | 2023-12-31 14:59 | MR ---
EXAMINATION TYPE: MR brain and iac wo/w con DATE OF EXAM: 12/31/2023 2:40 PM COMPARISON: NONE HISTORY: Hearing loss TECHNIQUE: Multiplanar and multispin-echo imaging of the brain was performed both before and after the administr ation of contrast. High-resolution images are obtained of the internal auditory canals performed uti lizing 8 mL intravenous Gadavist contrast. The ventricles, basal cisterns and sulci overlying the cerebral convexities are minimally enlarged. There is evidence of mild periventricular white matter ischemic demyelination. There is no evidence for midline shift or mass effect. Acute intracranial hemorrhage or extra-axial collection is not evident. High-resolution imaging of the internal auditory canals fails demonstrate evidence for an enhancing a coustic schwannoma or cerebellopontine cistern angle mass. Following contrast administration, there is no evidence for pathologic enhancement or enhancing mass. The paranasal sinuses and mastoid air cells are well-aerated. IMPRESSION: 1. No evidence of acoustic schwannoma or cerebellopontine angle mass. [facility], , 12/31/2023 2:57 PM
== END | disposition home or self-care (01) ==
LOC: RADMRIMAIN 13:04
PROVIDERS: ATTEND Psychiatry & Neurology Neurology
CPT/HCPCS: 70553

== ENCOUNTER 2024-01-31 08:23 | Day surgery (SDC) | payer MEDICARE ==
[2024-01-30 11:14] VITALS: BMI 33.7
--- NOTE | 2024-01-30 18:55 | HP ---
HISTORY AND PHYSICAL CHIEF COMPLAINT: Retained occluded left ventilation tube. HISTORY OF PRESENT ILLNESS: This patient is a 78-year-old female, who was recently seen in my office complaining of having problems with a clicking in her left ear whenever she uses her hearing aids. The patient states that she had tubes inserted in September and did not notice any problems. She was subsequently prescribed hearing aids and noted that in the left ear only she experienced a clicking sound in the left ear only. She denied any pain or drainage. She saw her photography assistant, who felt possibly the tube had come out at the time. She was not having any problems with the right ear at the time. She was seen in my office. Clinical examination here revealed that the tube was intact, but was in fact occluded completely. I discussed with the patient that we could either remove the tube or we could replace it with a new one. She elected to have the tube removed and ear patch. I agreed to do this with understanding that this may or may not resolve the clicking problem that she has been having. I advised her that once the eardrum is completely healed up, then she may resume wearing her hearing aids or she may actually resume wearing them immediately after the surgery. PAST MEDICAL HISTORY: Reveals that she has no allergies to medications. CURRENT MEDICATIONS: Include: 1. Jardiance. 2. Crestor. 3. Metformin. 4. Januvia. 5. Glipizide. 6. PreserVision. 7. Zyrtec. 8. Lumigan. REVIEW OF SYSTEMS: CARDIOVASCULAR SYSTEM: Negative. METABOLIC ENDOCRINE SYSTEM: Positive for type 2 diabetes mellitus and hypercholesterolemia. MUSCULOSKELETAL: Negative. SPECIAL SENSES: Positive for glaucoma. The remainder of the review of systems is unremarkable. PREVIOUS SURGERIES: Include bilateral myringotomy with insertion of ventilation tubes and removal of basal cell carcinomas from the skin. PHYSICAL EXAMINATION: GENERAL: This patient is a 78-year-old female, who is alert and cooperative. HEENT: The patient is normocephalic. Examination of the right ear reveals right tympanic membrane has a patent ventilation tube present. Examination of the left ear reveals that the patient has occluded ventilation tube present in the left ear. Pupils are equal, round, and reactive to light and accommodation. Extraocular movements within normal limits. Intranasal examination reveals moderate septal deviation with compensatory hypertrophy of inferior turbinates and a slight amount of mucus on the mucous membranes and draining down the posterior pharynx. Examination of oropharynx and remainder of the head and neck exam are within normal limits. CHEST/CARDIOVASCULAR: Both lung hayden are clear to percussion and auscultation. The patient is in regular sinus rhythm. S1, S2 are present without any murmurs, S3, or S4. ABDOMEN: There are no evidence any masses, megaly, or tenderness. The abdomen is soft. SKIN: Unremarkable. MUSCULOSKELETAL/NEUROLOGICAL: A and O. within normal limits. PELVIC/RECTAL: This should be printed. The pelvic/rectal exam is deferred at this time because the patient has it done on a regular basis at her family physician's office. The remainder of the physical exam is unremarkable. IMPRESSION: Retained occluded left ventilation tube. PLAN: The patient is scheduled to undergo removal of a retained occluded left ventilation tube under IV sedation with MAC. Attention, RNs in the pre-surgical area: I have not ordered any pre-surgical prophylactic antibiotics for this patient. This particular surgical procedure does not require any type of pre-surgical antibiotics because there is no cutting or incisions involved. If the pharmacy department sends any pre-surgical prophylactic antibiotics to the pre-surgical area for this patient, please cancel that order and return the medication to the pharmacy department. Also make sure that the patient's account is credited appropriately. I have discussed the risks, benefits and alternative therapies for the above-mentioned procedure and for both sedation/analgesia as well as necessary blood product administration, if indicated, as they pertain to this patient. The patient has indicated her understanding and acceptance of the risks and procedures discussed. MMODL / IJN: [id number] /
[~2024-01-31 08:23] MED LIST changes: -HYDROmorphone 0.5 MG/0.5 ML SYRINGE IVP PRN; -MIDAZOLAM 2 MG/2 ML VIAL IV PRN; -fentaNYL (PF) 50 MCG/ML 2 ML AMP IVP PRN
[2024-01-31] MEDS: IV FLUID CONTINUATION 1,000 ML IV ONE (10:14)
[2024-01-31] MEDS: OFLOXACIN 0.3% OPHTH DROPS 5 ML BOTTLE BOTH EARS ONE (10:29)
[2024-01-31] MEDS: OFLOXACIN 0.3% OPHTH DROPS 5 ML BOTTLE LEFT EAR ONE (10:29)
[2024-01-31 10:46] LABS: Glucose,Whole Blood 146 mg/dL (70-110)
[2024-01-31 10:52] VITALS: RESP 16; TEMP 97.4
[2024-01-31] MEDS: LACTATED RINGERS 1,000 ML IV SCH (10:54)
[2024-01-31] MEDS ORDERED: PROPOFOL 10 MG/ML 20 ML VIAL IV ONE (11:10)
[2024-01-31] MEDS ORDERED: MIDAZOLAM 2 MG/2 ML VIAL ONE (11:10)
[2024-01-31] MEDS ORDERED: fentaNYL (PF) 50 MCG/ML 2 ML AMP ONE (11:10)
[2024-01-31] MEDS ORDERED: ONDANSETRON 4 MG/2 ML VIAL ONE (11:10)
[2024-01-31] MEDS ORDERED: KETOROLAC 15 MG/ML 1 ML VIAL ONE (11:10)
[2024-01-31 12:48] VITALS: BP 110/67; PULSE 85
--- NOTE | 2024-02-03 19:22 | OP ---
OPERATIVE REPORT DATE OF SERVICE : 01/31/2024 PREOPERATIVE DIAGNOSIS: Retained bilateral ventilation tubes. POSTOPERATIVE DIAGNOSIS: Retained bilateral ventilation tubes. ANESTHESIA: With IV sedation with MAC. OPERATIVE PROCEDURE: Bilateral removal of retained ventilation tubes with myringoplasty patching using Gelfoam patch. COMPLICATIONS: None. DESCRIPTION OF PROCEDURE: The patient was placed on the operating table in supine position, and after uneventful induction and IV sedation, satisfactory general anesthesia was obtained. Next, the patient's right ear was initially prepped and draped in usual customary fashion. Following this, using a #3 aural speculum and the Zeiss operating microscope, the right external auditory canal was cleansed of all wax and debris. Next, the plastic ventilation tube was grasped with a pair of otoscopic alligator forceps and was gently rocked free and removed from the right tympanic membrane. Next, using the myringotomy knife. The edges of the residual perforation were freshened in the usual fashion. Following this, a compressed Gel-Foam patch was applied in the usual fashion. Next, attention was directed to the patient's left ear where the same procedure was carried out, that is to say using the #3 aural speculum and Zeiss operating microscope. The left external auditory canal was cleansed of all wax and debris. Next, using the alligator forceps, the plastic ventilation tube was grasped and was gently rocked free and out of the left tympanic membrane. Next, the edges of the residual perforation were freshened using a myringotomy knife in the usual fashion. Following this, a myringoplasty was performed using a Gelfoam patch in usual customary fashion similar to what had previously been performed on the right ear. At this point, procedure was terminated. There were no intraoperative complications. The patient tolerated the procedure well and was returned to the recovery room in satisfactory condition. MMODL / IJN: [id number] /
== END 2024-01-31 12:50 | disposition home or self-care (01) ==
LOC: OR 08:23
PROVIDERS: ATTEND Otolaryngology
DX: Z45.82 Encounter for adjustment or removal of myringotomy device (stent) (tube) (principal); H72.93 Unspecified perforation of tympanic membrane, bilateral; E11.9 Type 2 diabetes mellitus without complications; E78.00 Pure hypercholesterolemia, unspecified; K21.9 Gastro-esophageal reflux disease without esophagitis; H40.9 Unspecified glaucoma; Z85.828 Personal history of other malignant neoplasm of skin; Z79.84 Long term (current) use of oral hypoglycemic drugs; Z79.899 Other long term (current) drug therapy; Z87.891 Personal history of nicotine dependence; Z91.09 Other allergy status, other than to drugs and biological substances
CPT/HCPCS: 69610; J2250; J0171; J2405; J3010; J1885; J2704

== ENCOUNTER 2024-06-09 21:44 | Observation (INO) | payer MEDICARE ==
[2024-06-09 22:14] LABS: Glucose,Whole Blood 116 mg/dL (70-110)
--- NOTE | 2024-06-09 22:21 | ED ---
General Adult HPI - General Chief complaint: Headache Stated complaint: Headache Time Seen by Provider: 06/09/24 21:58 Source: EMS Mode of arrival: EMS - History of Present Illness Initial comments: Patient is a 79 y/o female with no significant medical history presenting today for aphasia. History limited due to patient's aphasia. LKN was 7:30 PM yesterday evening. Patient endorses a mild headache and difficulty with word finding as well as nausea. She denies hx prior CVA, ACS and is not on blood thinners. She denies vision changes, new numbness, new weakness or slurred speech. Denies chest pain, shortness of breath, abdominal pain, diarrhea, fevers, chills. Of note, patient also endorses low back pain and a sensation of heaviness in her legs. Denies trauma to her back or history of the same. - Related Data Home Medications Medication Instructions Recorded Confirmed metFORMIN HCL 500 mg PO TID 12/02/13 06/10/24 glipiZIDE [Glucotrol] 5 mg PO TID 07/22/17 06/10/24 sitaGLIPtin PHOSPHATE [Januvia] 100 mg PO DAILY@1200 01/09/19 06/10/24 Rosuvastatin [Crestor] 20 mg PO DAILY@1200 10/21/19 06/10/24 Empagliflozin [Jardiance] 25 mg PO DAILY 08/17/21 06/10/24 Bimatoprost [Lumigan 0.01% Ophth 1 drop BOTH EYES HS 09/10/23 06/10/24 Soln] Aspirin [[place] Aspirin EC] 81 mg PO MOWEFR 09/13/23 06/10/24 Cholecalciferol (Vitamin D3) 50 mcg PO DAILY 06/10/24 06/10/24 [Vitamin D3 (50 Mcg = 2000 Iu)] Dicyclomine [Bentyl] 10 mg PO BID 06/10/24 06/10/24 Pantoprazole [Protonix] 40 mg PO W/SUPPER 06/10/24 06/10/24 Venlafaxine HCl [Effexor XR] 75 mg PO DAILY 06/10/24 06/10/24 lisinopriL [Zestril] 2.5 mg PO DAILY 06/10/24 06/10/24 Previous Rx's Medication Instructions Recorded Clopidogrel [Plavix] 75 mg PO DAILY 30 Days #30 tab 04/03/25 Allergies Allergy/AdvReac Type Severity Reaction Status Date / Time adhesive Allergy Intermediate Rash/Hives Verified 06/10/24 07:02 Review of Systems ROS Statement: Those systems with pertinent positive or pertinent negative responses have been documented in the HPI. ROS Other: All systems not noted in ROS Statement are negative. Past Medical History Past Medical History: Cancer, Diabetes Mellitus, Eye Disorder, GERD/Reflux, Hearing Disorder / Deafness, Hyperlipidemia, Osteoarthritis (OA), Skin Disorder Additional Past Medical History / Comment(s): Glaucoma. Dry Eyes. Bilateral hearing aid use. Migraines. Hx pancreatitis. Hx right breast cancer 2016, last radiation 02/2017. Eczema. History of Any Multi-Drug Resistant Organisms: None Reported, C-DIFF Date of last positivie culture/infection: 2002 MDRO Source:: STOOL Past Surgical History: Appendectomy, Bladder Surgery, Breast Surgery, Cholecystectomy, Hysterectomy, Joint Replacement, Orthopedic Surgery Additional Past Surgical History / Comment(s): ORIF left ankle with hardware, BILATERAL SHOULDER SURGERY FOR SPUR REMOVAL, BILATERAL HEEL BONE SPUR REMOVAL AND PLANTAR FASCITIS SURGERY, LEFT GREAT TOE BONE SPUR REMOVAL WITH HARDWARE PLACED, right breast lumpectomy X2, colonoscopy, right breast mastectomy, left breast reduction, right knee replacement. Past Anesthesia/Blood Transfusion Reactions: Motion Sickness, Postoperative Nausea & Vomiting (PONV) Additional Past Anesthesia/Blood Transfusion Reaction / Comment(s): States severe post-op nausea & vomiting after surgery. Dad had had PONV. Past Psychological History: Depression Smoking Status: Former smoker Past Alcohol Use History: Rare Past Drug Use History: None Reported - Past Family History Sister(s) Family Medical History: Cancer Additional Family Medical History / Comment(s): Cervical and breast cancer. Father Family Medical History: Cancer Additional Family Medical History / Comment(s): Multiple myeloma. Mother Family Medical History: Cancer Additional Family Medical History / Comment(s): Lung cancer. General Exam - General Exam Comments Initial Comments: PE: CONSTITUTIONAL: No apparent distress, well appearing SKIN: Warm, dry, no jaundice, hives or petechiae EYES: Pupils are equally round, extraocular movements intact without nystagmus, clear conjunctiva, non-icteric sclera HENT: Normocephalic, atraumatic, moist mucus membranes, oropharynx clear without exudates NECK: , Full range of motion, normal appearance PULMONARY: Clear to auscultation without wheezes, rhonchi, or rales, normal excursion, no accessory muscle use and no stridor CARDIOVASCULAR: Regular rate, rhythm, normal S1 and S2. No appreciated murmurs, rubs or gallops. 2+, strong and equal radial pulses and DP pulses bilaterally with intact distal perfusion. No lower extremity edema GASTROINTESTINAL: Soft, active bowel sounds throughout, non-tender, non- distended, no palpable masses, no rebound or guarding. No hepatosplenomegaly GENITOURINARY: MUSCULOSKELETAL: Extremities have no gross deformity, no edema, redness, or swelling. No midline spinal TTP NEUROLOGIC:_a/o x 3, GCS 15, normal mentation. Cranial nerves: II (visual hayden without defects), III, IV and (extraocular movements are intact, pupils are equal with normal reaction to light), V (intact facial sensation and jaw opening), VII (no facial droop), IX and X (normal palate movement, midline uvula, normal voice), XI (symmetrical shoulder shrug and lateral head rotation against resistance), XII (midline tongue protrusion). Motor strength is 5/5 in all extremities. No abnormal movements. Normal muscle tone. Sensation to light touch is intact bilaterally. No cerebellar signs ([id number], [id number]-[id number], and rapid alternating movements are normal) Patient has mild aphasia, she is able to identify simple objects such as a watch and a phone, however when providing past medical history, has to start and stop intermittently due to tr ouble finding words, NIH 1 PSYCHIATRIC:_normal mood and affect, thought process is clear and linear Course Vital Signs 06/09/24 06/09/24 06/10/24 21:45 23:34 01:00 Temperature 98.8 F Pulse Rate 89 92 85 Respiratory 18 18 18 Rate Blood Pressure 122/65 120/62 122/69 O2 Sat by Pulse 99 97 97 Oximetry 06/10/24 06/10/24 06/10/24 03:46 06:13 07:54 Temperature 98.2 F 98.1 F Pulse Rate 82 78 71 Respiratory 16 18 20 Rate Blood Pressure 113/57 124/66 131/57 O2 Sat by Pulse 96 98 97 Oximetry 06/10/24 06/10/24 06/10/24 09:58 11:34 13:09 Temperature Pulse Rate 71 71 75 Respiratory 18 18 20 Rate Blood Pressure 131/74 121/59 132/57 O2 Sat by Pulse 94 L 96 97 Oximetry EKG Findings - EKG Comments: EKG Findings:: Sinus rhythm, rate 87 bpm MI interval 173 ms QT/QTc 363/408 ms, normal axis, no ST elevations or depressions, small mount of artifact throughout Medical Decision Making - Medical Decision Making Was pt. sent in by a medical professional or institution (, PA, [employer]IN[employer], urgent care, hospital, or custodial...) When possible be specific @ -No Did you speak to anyone other than the patient for history (EMS, parent, family, police, friend...)? What history was obtained from this source @ -No Did you review nursing and triage notes (agree or disagree)? Why? @ -I reviewed and agree with nursing and triage notes Were old charts reviewed (outside hosp., previous admission, EMS record, old EKG, old radiological studies, urgent care reports/EKG's, custodial records)? Report findings @ -Medical records reviewed Differential Diagnosis (chest pain, altered mental status, abdominal pain women, abdominal pain men, vaginal bleeding, weakness, fever, dyspnea, syncope, headache, dizziness, GI bleed, back pain, seizure, CVA, palpatations, mental health, musculoskeletal)? @ -Differential CVA Ischemic stroke, hemorrhagic stroke, brain tumor, atypical migraine, Wernicke's encephalopathy, seizure, multiple sclerosis, meningitis, encephalitis, hypoglycemia, Guillain-Angeles, electrolytes disturbance, myasthenia gravis.... This is not meant to be an all-inclusive list EKG interpreted by me (3pts min.). @ -As above X-rays interpreted by me (1pt min.). @I personally reviewed chest x-ray, I see no evidence of mediastinal widening, cardiomegaly or consolidations, I agree with radiologist interpretation CT interpreted by me (1pt min.). @Personally reviewed CT brain, I see no evidence of hemorrhage or mass effect, reviewed CTA see no evidence of dissection or large vessel occlusion, reviewed CTA thorax abdomen pelvis, I see no evidence of dissection or aneurysm, agree with radiologist interpretation U/S interpreted by me (1pt. min.). @ -None done What testing was considered but not performed or refused? (CT, X-rays, U/S, labs)? Why? @ -None What meds were considered but not given or refused? Why? @ -TNK was considered however patient is greater than 24 hours out from onset of symptoms Did you discuss the management of the patient with other professionals (professionals i.e. , PA, [employer] WORK[employer], lab, RT, psych nurse, social media intern, county tax assessor, teacher, border patrol officer, behavioral health case manager)? Give summary @ -A stroke alert activation was considered however patient greater than 24 hours out from onset of symptoms with NIH 1 Was smoking cessation discussed for >3mins.? @ -No Was critical care preformed (if so, how long)? @ -No Were there social determinants of health that impacted care today? How? (Homelessness, low income, unemployed, alcoholism, drug addiction, transportation, low edu. Level, literacy, decrease access to med. care, [facility], rehab)? @ -No Was there de-escalation of care discussed even if they declined (Discuss DNR or withdrawal of care, Hospice)? @ -No What co-morbidities impacted this encounter? (DM, HTN, Smoking, COPD, CAD, Cancer, CVA, ARF, Chemo, Hep., AIDS, mental health diagnosis, sleep apnea, morbid obesity)? Diabetes Was patient admitted / discharged? Hospital course, mention meds given and route, prescriptions, significant lab abnormalities, going to OR and other pertinent info. @ -Admission-this is a pleasant 79-year-old female history of diabetes presenting today for aphasia. Last known normal was 7:30 PM last night noted by patient's daughter and she had spoken to her on the phone. For this reason a stroke alert was not activated. A full neurologic exam was performed and showed an NIH of 1 due to aphasia. Of note patient also endorses low back pain with a feeling of heaviness in her bilateral lower extremities without numbness. For this reason CT brain, CTA and CT angio of the thorax abdomen pelvis was obtained to assess for signs of dissection or aneurysm. Additionally nausea control, comprehensive labs ordered. Patient agreeable plan of care. Labs and imaging reviewed. Grossly within normal limits. Abnormal values not concerning for acute pathology related to presenting complaint. Updated patient and family to reassuring findings. We discussed the plan for admission given concern for CVA as cause of aphasia. Patient and family agreeable plan of care. Patient with ABCD2 score of 4, ordered full dose aspirin. Patient admitted to Dr. Bowling in stable condition Undiagnosed new problem with uncertain prognosis? @ -No Drug Therapy requiring intensive monitoring for toxicity (Heparin, Nitro, Insulin, Cardizem)? @ -No Were any procedures done? @ -No Diagnosis/symptom? @Aphasia, CVA Acute, or Chronic, or Acute on Chronic? @Acute Uncomplicated (without systemic symptoms) or Complicated (systemic symptoms)? @Complicated Side effects of treatment? @ -No Exacerbation, Progression, or Severe Exacerbation? @ -No Poses a threat to life or bodily function? How? (Chest pain, [place], [place], pneumonia, PE, COPD, DKA, ARF, appy, cholecystitis, CVA, Diverticulitis, Homicidal, Suicidal, threat to staff... and all critical care pts) @ -yes if left untreated or unidentified ultimately result in massive CVA that could result in or life altering deficits - Lab Data Result diagrams: 06/11/24 05:36 06/11/24 05:36 Lab Results 06/09/24 06/09/24 06/09/24 Range/Units 22:13 22:20 22:20 WBC 7.1 (3.8-10.6) k/uL RBC 5.08 (3.80-5.40) m/uL Hgb 15.0 (11.4-16.0) gm/dL Hct 47.7 H (34.0-46.0) % MCV 93.8 (80.0-100.0) fL MCH 29.5 (25.0-35.0) pg MCHC 31.5 (31.0-37.0) g/dL RDW 14.1 (11.5-15.5) % Plt Count 156 (150-450) k/uL MPV 8.8 Neutrophils % 90 % Lymphocytes % 6 % Monocytes % 2 % Eosinophils % 1 % Basophils % 1 % Neutrophils # 6.3 (1.3-7.7) k/uL Lymphocytes # 0.4 L (1.0-4.8) k/uL Monocytes # 0.2 (0-1.0) k/uL Eosinophils # 0.1 (0-0.7) k/uL Basophils # 0.0 (0-0.2) k/uL PT 11.2 (10.0-12.5) sec INR 1.0 (<1.2) APTT 20.8 L (22.0-30.0) sec VBG pH (7.31-7.41) VBG pCO2 (37-51) mmHg VBG HCO3 (24-28) mmol/L Sodium (137-145) mmol/L Potassium (3.5-5.1) mmol/L Chloride (98-107) mmol/L Carbon Dioxide (22-30) mmol/L Anion Gap mmol/L BUN (7-17) mg/dL Creatinine (0.52-1.04) mg/dL Est GFR (CKD-EPI)AfAm (>60 ml/min/1.73 sqM) Est GFR (CKD-EPI)NonAf (>60 ml/min/1.73 sqM) Glucose (74-99) mg/dL POC Glucose (mg/dL) 116 H (70-110) mg/dL POC Glu Wing Coverer ID [address] Glu mg/dL mg/dL Hemoglobin A1c (<=6.0) % Calcium (8.4-10.2) mg/dL Magnesium (1.6-2.3) mg/dL Total Bilirubin (0.2-1.3) mg/dL AST (14-36) U/L ALT (4-34) U/L Alkaline Phosphatase (38-126) U/L Creatine Kinase (30-135) U/L Troponin I (0.000-0.034) ng/mL Total Protein (6.3-8.2) g/dL Albumin (3.5-5.0) g/dL Urine Color Urine Appearance (Clear) Urine pH (5.0-8.0) Ur Specific [place] (1.001-1.035) Urine Protein (Negative) Urine Glucose (UA) (Negative) Urine Ketones (Negative) Urine Blood (Negative) Urine Nitrite (Negative) Urine Bilirubin (Negative) Urine Urobilinogen (<2.0) mg/dL Ur Leukocyte Esterase (Negative) Urine RBC (0-5) /hpf Urine WBC (0-5) /hpf Urine Mucus (None) /hpf Acetone, Qual (Negative) 06/09/24 06/09/24 06/09/24 Range/Units 22:20 22:20 22:20 WBC (3.8-10.6) k/uL RBC (3.80-5.40) m/uL Hgb (11.4-16.0) gm/dL Hct (34.0-46.0) % MCV (80.0-100.0) fL MCH (25.0-35.0) pg MCHC (31.0-37.0) g/dL RDW (11.5-15.5) % Plt Count (150-450) k/uL MPV Neutrophils % % Lymphocytes % % Monocytes % % Eosinophils % % Basophils % % Neutrophils # (1.3-7.7) k/uL Lymphocytes # (1.0-4.8) k/uL Monocytes # (0-1.0) k/uL Eosinophils # (0-0.7) k/uL Basophils # (0-0.2) k/uL PT (10.0-12.5) sec INR (<1.2) APTT (22.0-30.0) sec VBG pH (7.31-7.41) VBG pCO2 (37-51) mmHg VBG HCO3 (24-28) mmol/L Sodium 133 L (137-145) mmol/L Potassium 4.7 (3.5-5.1) mmol/L Chloride 99 (98-107) mmol/L Carbon Dioxide 17 L (22-30) mmol/L Anion Gap 17 mmol/L BUN 24 H (7-17) mg/dL Creatinine 0.65 (0.52-1.04) mg/dL Est GFR (CKD-EPI)AfAm >90 (>60 ml/min/1.73 sqM) Est GFR (CKD-EPI)NonAf 86 (>60 ml/min/1.73 sqM) Glucose 118 H (74-99) mg/dL POC Glucose (mg/dL) (70-110) mg/dL POC Glu Wing Coverer ID [address]imated [address] Glu mg/dL mg/dL Hemoglobin A1c (<=6.0) % Calcium 9.6 (8.4-10.2) mg/dL Magnesium 1.8 (1.6-2.3) mg/dL Total Bilirubin 1.1 (0.2-1.3) mg/dL AST 26 (14-36) U/L ALT 17 (4-34) U/L Alkaline Phosphatase 62 (38-126) U/L Creatine Kinase 33 (30-135) U/L Troponin I <0.012 (0.000-0.034) ng/mL Total Protein 6.6 (6.3-8.2) g/dL Albumin 4.3 (3.5-5.0) g/dL Urine Color Urine Appearance (Clear) Urine pH (5.0-8.0) Ur Specific [place] (1.001-1.035) Urine Protein (Negative) Urine Glucose (UA) (Negative) Urine Ketones (Negative) Urine Blood (Negative) Urine Nitrite (Negative) Urine Bilirubin (Negative) Urine Urobilinogen (<2.0) mg/dL Ur Leukocyte Esterase (Negative) Urine RBC (0-5) /hpf Urine WBC (0-5) /hpf Urine Mucus (None) /hpf Acetone, Qual Positive (Negative) 06/09/24 06/09/24 06/09/24 Range/Units 22:20 22:55 23:42 WBC (3.8-10.6) k/uL RBC (3.80-5.40) m/uL Hgb (11.4-16.0) gm/dL Hct (34.0-46.0) % MCV (80.0-100.0) fL MCH (25.0-35.0) pg MCHC (31.0-37.0) g/dL RDW (11.5-15.5) % Plt Count (150-450) k/uL MPV Neutrophils % % Lymphocytes % % Monocytes % % Eosinophils % % Basophils % % Neutrophils # (1.3-7.7) k/uL Lymphocytes # (1.0-4.8) k/uL Monocytes # (0-1.0) k/uL Eosinophils # (0-0.7) k/uL Basophils # (0-0.2) k/uL PT (10.0-12.5) sec INR (<1.2) APTT (22.0-30.0) sec VBG pH 7.33 (7.31-7.41) VBG pCO2 35 L (37-51) mmHg VBG HCO3 18 L (24-28) mmol/L Sodium (137-145) mmol/L Potassium (3.5-5.1) mmol/L Chloride (98-107) mmol/L Carbon Dioxide (22-30) mmol/L Anion Gap mmol/L BUN (7-17) mg/dL Creatinine (0.52-1.04) mg/dL Est GFR (CKD-EPI)AfAm (>60 ml/min/1.73 sqM) Est GFR (CKD-EPI)NonAf (>60 ml/min/1.73 sqM) Glucose (74-99) mg/dL POC Glucose (mg/dL) (70-110) mg/dL POC Glu Wing Coverer ID [address] Glu mg/dL 143 mg/dL Hemoglobin A1c 6.6 H (<=6.0) % Calcium (8.4-10.2) mg/dL Magnesium (1.6-2.3) mg/dL Total Bilirubin (0.2-1.3) mg/dL AST (14-36) U/L ALT (4-34) U/L Alkaline Phosphatase (38-126) U/L Creatine Kinase (30-135) U/L Troponin I (0.000-0.034) ng/mL Total Protein (6.3-8.2) g/dL Albumin (3.5-5.0) g/dL Urine Color Yellow Urine Appearance Clear (Clear) Urine pH 5.0 (5.0-8.0) Ur Specific [place] 1.039 H (1.001-1.035) Urine Protein 1+ H (Negative) Urine Glucose (UA) 4+ H (Negative) Urine Ketones 2+ H (Negative) Urine Blood Trace H (Negative) Urine Nitrite Negative (Negative) Urine Bilirubin Negative (Negative) Urine Urobilinogen <2.0 (<2.0) mg/dL Ur Leukocyte Esterase Negative (Negative) Urine RBC 1 (0-5) /hpf Urine WBC 1 (0-5) /hpf Urine Mucus Rare H (None) /hpf Acetone, Qual (Negative) Disposition Clinical Impression: CVA (cerebral vascular accident), Pulmonary nodule Disposition: ADMITTED IP TO THIS HOSP Condition: Stable
[2024-06-09] MEDS: ONDANSETRON 4 MG/2 ML VIAL IVP STA (22:24)
[2024-06-09] MEDS: MORPHINE SULFATE 2 MG/ML SYRINGE IVP STA (22:25)
[2024-06-09] MEDS: SODIUM CHLORIDE 0.9% 500 ML 500 ML IV STA (22:30)
[2024-06-09 22:34] LABS: Basophils % (A) 1 %; Eosinophils # (A) 0.1 k/uL (0-0.7); Eosinophils % (A) 1 %; HCT 47.7 % (34.0-46.0); Lymphocytes # (A) 0.4 k/uL (1.0-4.8); Lymphocytes % (A) 6 %; MCH 29.5 pg (25.0-35.0); MCHC 31.5 g/dL (31.0-37.0); MCV 93.8 fL (80.0-100.0); Mean Platelet Volume 8.8; Monocytes # (A) 0.2 k/uL (0-1.0); Monocytes % (A) 2 %; Neutrophils # (A) 6.3 k/uL (1.3-7.7); Neutrophils % (A) 90 %; Platelet Count 156 k/uL (150-450); RBC 5.08 m/uL (3.80-5.40); RDW 14.1 % (11.5-15.5); WBC 7.1 k/uL (3.8-10.6)
[2024-06-09 22:48] LABS: ALT 17 U/L (4-34); AST 26 U/L (14-36); African American GFR (CKD) >90 (>60 ml/min/1.73 sqM); Albumin 4.3 g/dL (3.5-5.0); Alkaline Phosphatase 62 U/L (38-126); Anion Gap 17 mmol/L; Blood Urea Nitrogen 24 mg/dL (7-17); Calcium 9.6 mg/dL (8.4-10.2); Carbon Dioxide 17 mmol/L (22-30); Chloride 99 mmol/L (98-107); Creatine Kinase 33 U/L (30-135); Glucose 118 mg/dL (74-99); Magnesium 1.8 mg/dL (1.6-2.3); Non-African American GFR(CKD) 86 (>60 ml/min/1.73 sqM); Potassium 4.7 mmol/L (3.5-5.1); Prothrombin Time 11.2 sec (10.0-12.5); Sodium 133 mmol/L (137-145); Total Bilirubin 1.1 mg/dL (0.2-1.3); Total Protein 6.6 g/dL (6.3-8.2)
[2024-06-09 22:49] LABS: Partial Thromboplastin Time 20.8 sec (22.0-30.0)
[2024-06-09 23:09] LABS: Appearance,Urine Clear (Clear); Bilirubin,Urine Negative (Negative); Blood,Urine Trace (Negative); Color,Urine Yellow; Glucose,Urine (UA) 4+ (Negative); Leukocyte Esterase,Urine Negative (Negative); Mucus,Urine Rare /hpf; Nitrite,Urine Negative (Negative); Protein,Urine 1+ (Negative); RBC,Urine 1 /hpf (0-5); Specific Gravity,Urine 1.039 (1.001-1.035); Urobilinogen,Urine <2.0 mg/dL (<2.0); WBC,Urine 1 /hpf (0-5)
--- NOTE | 2024-06-09 23:13 | XR ---
EXAMINATION TYPE: XR chest 1V DATE OF EXAM: 06/09/2024 10:58 PM COMPARISON: Chest radiographs from CLINICAL INDICATION: Female, 79 years old with history of altered mental status; [facility] TECHNIQUE: XR chest 1V Frontal view of the chest. FINDINGS: Lungs/Pleura: There is no evidence of pleural effusion, focal consolidation, or pneumothorax. Pulmonary vascularity: Unremarkable. Heart/mediastinum: Cardiomediastinal silhouette is unremarkable. Musculoskeletal: No acute osseous pathology. Other findings: None IMPRESSION: No acute cardiopulmonary disease/process. [facility], , 06/09/2024 11:10 PM
[2024-06-09 23:17] LABS: Ketones,Urine 2+ (Negative)
--- NOTE | 2024-06-09 23:37 | CT ---
EXAMINATION TYPE: CT brain wo con DATE OF EXAM: 06/09/2024 11:29 PM COMPARISON: None. CLINICAL INDICATION: Female, 79 years old with history of aphasia, headache, Pt presents to ED for he adache and patient report of "not being able to get her words out right". hx o breast ca, cholecystec ruel, appendectomy, hysterectomy, bladder surgery, breast surgery TECHNIQUE: Brain: Axial CT images of the brain were obtained with coronal and sagittal reformats created and rev iewed. Contrast used: None. Oral contrast used: None. CT DLP: 1153 mGycm, Automated exposure control for dose reduction was used. FINDINGS: Brain: Extra-axial spaces: No abnormal extra-axial fluid collections. Ventricular system: Dilatation in proportion to cerebral atrophy. Cerebral parenchyma: Cerebral atrophy. No acute intraparenchymal hemorrhage or mass effect. The garcia -white junction is well differentiated. Cerebellum: Unremarkable. Mass effect: No evidence of midline shift. Intracranial vasculature: Atherosclerotic calcifications of the intracranial vessels. Soft tissues: Normal. Calvarium/osseous structures: No depressed skull fracture. Paranasal sinuses and mastoid air cells: Mild scattered paranasal sinus disease. Visualized orbits: Bilateral aphakia IMPRESSION: 1. No acute intracranial process. 2. Nonspecific white matter changes, likely secondary to chronic small vessel ischemic disease. [facility], , 06/09/2024 11:34 PM
--- NOTE | 2024-06-09 23:41 | CT ---
EXAMINATION TYPE: CT angio head neck DATE OF EXAM: 06/09/2024 11:27 PM COMPARISON: Same day 06/09/2024 CLINICAL INDICATION: Female, 79 years old with history of apashia, started last night; Pt presents to ED for headache and patient report of "not being able to get her words out right". hx o breast ca, c holecystectomy, appendectomy, hysterectomy, bladder surgery, breast surgery TECHNIQUE: Axially acquired helical CT angiogram of the head and neck was obtained with contrast. Axi al images are supplemented with 3D reconstructions and MIP images which were post-processed at an in dependent workstation. NASCET criteria used. Contrast used:65 mL of Isovue 370 with IV Contrast, Oral contrast used: None. CT DLP: 396 mGycm, Automated exposure control for dose reduction was used. FINDINGS: CTA HEAD: No evidence of acute intracranial hemorrhage, mass effect, or midline shift. The ventricles, sulci, a nd cisterns are unremarkable. Vertebral arteries: The vertebral arteries are patent. Vertebral artery dominance: Left dominant the right vertebral artery appears to terminate as a source inspector ior inferior cerebellar artery. Basilar artery: The basilar artery is intact. The basilar artery bifurcation is normal. Internal Carotid arteries: The cervical, petrous, cavernous and supraclinoid segments are normal. MAR: Patent with no evidence of aneurysm. ACOM: Present without evidence of aneurysm. MCA: Patent with no evidence of aneurysm. TRANSPORT TANK TECHNICIAN: Patent with no evidence of aneurysm. PCOM: Hypoplastic bilaterally. Dural sinuses: Patent. CTA NECK: Right Carotid System: The common carotid artery and external carotid artery are patent. The carotid bifurcation demonstrate s no evidence of hemodynamically significant stenosis. The remaining portions of the internal carotid artery demonstrate normal size without significant narrowing. Left Carotid System: The common carotid artery and external carotid artery are patent. The carotid bifurcation demonstrate s no evidence of hemodynamically significant stenosis. The remaining portions of the internal carotid artery demonstrate normal size without significant narrowing. Vertebral arteries are patent without evidence hemodynamically significant stenosis. There is a three-vessel aortic arch. The origins of the great vessels are patent. No evidence of hemo dynamically significant stenosis IMPRESSION: 1. No evidence of dissection of the cervical internal carotid arteries or vertebral arteries. 2. No any evidence of significant stenosis at the carotid bifurcations. 3. No evidence of intracranial high-grade stenosis or intracranial aneurysm. [facility], , 06/09/2024 11:39 PM
[2024-06-09 23:59] LABS: VBG PH 7.33 (7.31-7.41)
--- NOTE | 2024-06-10 00:04 | CT ---
EXAMINATION TYPE: CT noncontrast chest abdomen pelvis. CT angio thor/abd pel aorta DATE OF EXAM: 06/09/2024 11:44 PM COMPARISON: 09/14/2019. CLINICAL INDICATION: Female, 79 years old with history of Stroke like symptoms +low back pain, weak i n legs; PHH, Pt presents to ED for headache and patient report of "not being able to get her words ou t right". hx o breast ca, cholecystectomy, appendectomy, hysterectomy, bladder surgery, breast surger y TECHNIQUE: Noncontrast CT chest abdomen pelvis followed by CT angiogram chest abdomen pelvis. Multiple axial CT images of the chest, abdomen, and pelvis were obtained prior to and after the administration of IV co ntrast. 3-D reformats and maximum intensity projection format were performed on a separate workstatio n. . Contrast used:65ml mL of Isovue 370 with IV Contrast, Oral contrast used: CT DLP: 2700.9 mGycm, Automated exposure control for dose reduction was used. FINDINGS: ARTERIAL VASCULATURE: Ascending thoracic aorta and descending thoracic aorta are within normal limits for size. There is no evidence for intramural hematoma within the aorta on noncontrast imaging. Post contrast imaging demonstrates no evidence for dissection. The major vessels of the aortic arch are pa tent. The major vessels of the abdominal aorta are patent. PULMONARY ARTERIAL VASCULATURE: Normal caliber. No evidence of filling defect to suggest pulmonary em bolus. VENOUS SYSTEM: Unremarkable. LUNGS/ PLEURA: No focal consolidation, pneumothorax or pleural effusion. Scattered thin-walled air cy sts throughout the lungs. 6 mm right lower lobe pulmonary nodule. Series 501 image 85. Left lower irene g pulmonary nodule measuring 5 mm series 501 image 114. AIRWAY: Patent and unremarkable. HEART: Cardiomegaly is demonstrated Mild coronary artery calcifications present. MEDIASTINUM: No gross evidence of adenopathy. MUSCULOSKELETAL: Moderate disc degeneration changes are present throughout the thoracolumbar spine. SOFT TISSUES/LYMPH NODES: Right breast appears intact. Postprocedural changes of the left breast. LOWER NECK: No significant findings. Abdomen: LIVER: Diffusely hypoattenuating parenchyma. GALLBLADDER AND BILE DUCTS: The gallbladder is surgically absent. PANCREAS: Unremarkable. SPLEEN: Unremarkable. ADRENAL GLANDS: Unremarkable. KIDNEYS AND URETERS: No evidence of hydronephrosis or renal calculus. The ureters are unremarkable. PELVIS BLADDER: Unremarkable REPRODUCTIVE: The uterus is surgically absent. ABDOMEN & PELVIS STOMACH AND BOWEL: No evidence of bowel obstruction. Second portion duodenal diverticulum. With multi ple fingerlike extensions extending towards the pancreas. Small hiatal hernia. PERITONEUM/RETROPERITONEUM: No evidence of pneumoperitoneum or free fluid. MUSCULOSKELETAL: No acute osseous abnormalities. Moderate disc degeneration changes are present throu ghout the thoracolumbar spine. LYMPH NODES: No gross evidence for lymphadenopathy. SOFT TISSUE/ABDOMINAL WALL: Unremarkable IMPRESSION: 1. No evidence for aortic dissection, aneurysm or occlusion. 2. There is an enlarged second portion duodenal diverticulum extending towards the pancreas. 3. Cholecystectomy changes. 4. Right breast implant appears intact with postsurgical changes to left breast. 5. Hepatic steatosis. 6. Sub-6 mm pulmonary nodules consider short-term follow-up in one year. 7. Small hiatal hernia. [facility], , 06/10/2024 12:02 AM
[2024-06-10] MEDS: MAG HYDROX/AL HYDROX/SIMETH 30 ML CUP PO STA (00:33)
[2024-06-10] MEDS: ASPIRIN 81 MG PO STA (00:34)
[2024-06-10] MEDS: FAMOTIDINE 20 MG/2 ML VIAL IV STA (00:37)
[2024-06-10] MEDS: ONDANSETRON 4 MG/2 ML VIAL IVP STA (00:41)
[2024-06-10] MEDS: SODIUM CHLORIDE 0.9% 1,000 ML IV SCH (01:20)
[2024-06-10] MEDS: ACETAMINOPHEN TAB 325 MG TAB PO PRN (07:51)
[2024-06-10] MEDS: FAMOTIDINE 20 MG TAB PO SCH (07:52)
[2024-06-10 11:48] LABS: Glucose,Whole Blood 127 mg/dL (70-110)
--- NOTE | 2024-06-10 11:51 | CA ---
Transthoracic Echo Report Name: Angelina Perez Age: 79 Gender: F : 1945 Exam Date: 06/10/2024 08:23 Exam Location: [place] [facility] Ht (in): 60 Wt (lb): 160 Ordering Physician: Wen Roque MD Attending/Referring Phys: Director Of Advertising Sales Andreia Caban RDCS Procedure CPT: Indications: Thrombus Cardiac Hx: Technical Quality: Fair Contrast 1: Agitated Saline Total Dose (mL): 10 Contrast 2: Total Dose (mL): MEASUREMENTS (Male / Female) Normal Values 2D ECHO LV Diastolic Diameter PLAX 4.2 cm 4.2 - 5.9 / 3.9 - 5.3 cm LV Systolic Diameter PLAX 2.7 cm IVS Diastolic Thickness 1.1 cm 0.6 - 1.0 / 0.6 - 0.9 cm LVPW Diastolic Thickness 1.0 cm 0.6 - 1.0 / 0.6 - 0.9 cm LV Relative Wall Thickness 0.5 RV Internal Dim ED PLAX 2.0 cm LA Systolic Diameter LX 2.9 cm 3.0 - 4.0 / 2.7 - 3.8 cm LV Diastolic Volume MOD BP 29.2 cm??? 67 - 155 / 56 - 104 cm??? LV Systolic Volume MOD BP 9.2 cm??? 22 - 58 / 19 - 49 cm??? LV Ejection Fraction MOD BP 68.4 % >= 55 % LV Cardiac Index MOD BP 615.7 cm???/min???m??? LV Diastolic Volume MOD 4C 30.1 cm??? LV Systolic Volume MOD 4C 9.9 cm??? LV Ejection Fraction MOD 4C 67.0 % LV Cardiac Index MOD 4C 623.2 cm???/min???m??? LV Diastolic Length 4C 6.4 cm LV Systolic Length 4C 4.9 cm LV Diastolic Volume MOD 2C 27.5 cm??? LV Systolic Volume MOD 2C 8.4 cm??? LV Ejection Fraction MOD 2C 69.4 % LV Cardiac Index MOD 2C 588.7 cm???/min???m??? LV Diastolic Length 2C 6.2 cm LV Systolic Length 2C 4.7 cm LA Volume 20.4 cm??? 18 - 58 / 22 - 52 cm??? LA Volume Index 11.5 cm???/m??? 16 - 28 cm???/m??? M-MODE Aortic Root Diameter MM 3.2 cm LA Systolic Diameter MM 3.2 cm LA Ao Ratio MM 1.0 AV Cusp Separation MM 1.9 cm DOPPLER AV Peak Velocity 131.8 cm/s AV Peak Gradient 7.0 mmHg MV Area PHT 2.3 cm??? Mitral E Point Velocity 59.4 cm/s Mitral A Point Velocity 94.4 cm/s Mitral E to A Ratio 0.6 MV Deceleration Time 328.9 ms TR Peak Velocity 198.3 cm/s TR Peak Gradient 15.7 mmHg FINDINGS Left Ventricle Left ventricular ejection fraction is estimated at 55-60 %. Mildly increased septal wall thickness. Mildly increased posterior wall thickness. Normal left ventricular systolic function with no obvious regional wall motion abnormalities. Left ventricular cavity size normal. Right Ventricle Mild right ventricular dilatation. Right ventricle at upper limits of normal. Right Atrium Mild right atrial dilatation. Negative agitated saline bubble study for right to left shunt. Left Atrium Normal left atrial size. Mitral Valve Structurally normal mitral valve. Trace mitral regurgitation. No mitral stenosis. Aortic Valve Trileaflet aortic valve. No aortic valve stenosis or regurgitation. Tricuspid Valve Structurally normal tricuspid valve. Trace tricuspid regurgitation. No tricuspid stenosis. Pulmonic Valve Structurally normal pulmonic valve. Trace pulmonic regurgitation. No pulmonic stenosis. Pericardium Small pericardial effusion. Pericardial effusion located anteriorly. Aorta Normal size aortic root and proximal ascending aorta. CONCLUSIONS Indication: Evaluation for LV thrombus Normal LV size and function Thickened pericardium without effusion No intracardiac masses Absence of [id number] intra-atrial shunting Previewed by: Dr. Florin Greenwood MD (Electronically Signed) Final Date: 10 June 2024 11:50
[2024-06-10] MEDS: CLOPIDOGREL 75 MG TAB PO SCH (14:54)
--- NOTE | 2024-06-10 17:04 | P.HPIM ---
History of Present Illness H&P Date: 06/10/24 Angelina Perez, is a 79-year-old female who presented to [facility] emergency room after having episode of slurred speech and difficulty finding words, patient was also complaining of headache and nausea. She was evaluated in the emergency room vital examination on presentation rev ealed a temperature of 98.8 pulse 89 respiration 18 blood pressure 122/65 pulse ox 99% on room air Laboratory data revealed a white blood count of 7.1 hemoglobin 15.0 platelet count 156 sodium 133 potassium 4.7 chloride 99 CO2 17 BUN 24 creatinine 0.65 Testing in the emergency room revealed CT scan of the brain without contrast done in the emergency room revealed no acute abnormality, nonspecific white matter changes likely secondary to chronic small vessel ischemic disease, CT angiogram of the neck and head revealed no acute abnormality. Patient was admitted to medical floor for further evaluation and treatment, neurology consultation was requested, echocardiogram ordered. Past Medical History Past Medical History: Cancer, Diabetes Mellitus, Eye Disorder, GERD/Reflux, Hearing Disorder / Deafness, Hyperlipidemia, Osteoarthritis (OA), Skin Disorder Additional Past Medical History / Comment(s): Glaucoma. Dry Eyes. Bilateral hearing aid use. Migraines. Hx pancreatitis. Hx right breast cancer 2016, last radiation 02/2017. Eczema. History of Any Multi-Drug Resistant Organisms: None Reported, C-DIFF Date of last positivie culture/infection: 2002 MDRO Source:: STOOL Past Surgical History: Appendectomy, Bladder Surgery, Breast Surgery, Cholecystectomy, Hysterectomy, Joint Replacement, Orthopedic Surgery Additional Past Surgical History / Comment(s): ORIF left ankle with hardware, BILATERAL SHOULDER SURGERY FOR SPUR REMOVAL, BILATERAL HEEL BONE SPUR REMOVAL AND PLANTAR FASCITIS SURGERY, LEFT GREAT TOE BONE SPUR REMOVAL WITH HARDWARE PLACED, right breast lumpectomy X2, colonoscopy, right breast mastectomy, left breast reduction, right knee replacement. Past Anesthesia/Blood Transfusion Reactions: Motion Sickness, Postoperative Nausea & Vomiting (PONV) Additional Past Anesthesia/Blood Transfusion Reaction / Comment(s): States severe post-op nausea & vomiting after surgery. Dad had had PONV. Past Psychological History: Depression Smoking Status: Former smoker Past Alcohol Use History: Rare Past Drug Use History: None Reported - Past Family History Sister(s) Family Medical History: Cancer Additional Family Medical History / Comment(s): Cervical and breast cancer. Father Family Medical History: Cancer Additional Family Medical History / Comment(s): Multiple myeloma. Mother Family Medical History: Cancer Additional Family Medical History / Comment(s): Lung cancer. Medications and Allergies Home Medications Medication Instructions Recorded Confirmed Type metFORMIN HCL 500 mg PO TID 12/02/13 06/10/24 History glipiZIDE [Glucotrol] 5 mg PO TID 07/22/17 06/10/24 History sitaGLIPtin PHOSPHATE [Januvia] 100 mg PO DAILY@1200 01/09/19 06/10/24 History Rosuvastatin [Crestor] 20 mg PO DAILY@1200 10/21/19 06/10/24 History Empagliflozin [Jardiance] 25 mg PO DAILY 08/17/21 06/10/24 History Bimatoprost [Lumigan 0.01% Ophth 1 drop BOTH EYES HS 09/10/23 06/10/24 History Soln] Aspirin [Gamaliel Aspirin EC] 81 mg PO MOWEFR 09/13/23 06/10/24 History Cholecalciferol (Vitamin D3) 50 mcg PO DAILY 06/10/24 06/10/24 History [Vitamin D3 (50 Mcg = 2000 Iu)] Dicyclomine [Bentyl] 10 mg PO BID 06/10/24 06/10/24 History Pantoprazole [Protonix] 40 mg PO W/SUPPER 06/10/24 06/10/24 History Venlafaxine HCl [Effexor XR] 75 mg PO DAILY 06/10/24 06/10/24 History lisinopriL [Zestril] 2.5 mg PO DAILY 06/10/24 06/10/24 History Allergies Allergy/AdvReac Type Severity Reaction Status Date / Time adhesive Allergy Intermediate Rash/Hives Verified 06/10/24 07:02 Physical Exam Vitals: Vital Signs Temp Pulse Resp BP Pulse Ox 06/10/24 06:13 98.2 F 78 18 124/66 98 06/10/24 03:46 82 16 113/57 96 06/10/24 01:00 85 18 122/69 97 06/09/24 23:34 92 18 120/62 97 06/09/24 21:45 98.8 F 89 18 122/65 99 Intake and Output 06/09/24 06/10/24 06/10/24 22:59 06:59 14:59 Other: Weight 72.575 kg In general patient is alert and oriented x 3 in no distress HEENT head normocephalic and atraumatic Neck is supple no JVD no goiter no lymphadenopathy no carotid bruit Chest examination is clear to auscultation no crackles no wheezing Cardiac exam reveals regular heart sounds S1 and S2 no gallops no murmurs Abdomen is soft nontender no organomegaly with normal bowel sounds Extremity exam reveals no edema no cyanosis or clubbing Neurological examination reveals no gross focal deficits Results CBC & Chem 7: 06/09/24 22:20 06/09/24 22:20 Labs: Abnormal Lab Results - Last 24 Hours (Table) 06/09/24 06/09/24 06/09/24 Range/Units 22:13 22:20 22:20 Hct 47.7 H (34.0-46.0) % Lymphocytes # 0.4 L (1.0-4.8) k/uL APTT 20.8 L (22.0-30.0) sec VBG pCO2 (37-51) mmHg VBG HCO3 (24-28) mmol/L Sodium (137-145) mmol/L Carbon Dioxide (22-30) mmol/L BUN (7-17) mg/dL Glucose (74-99) mg/dL POC Glucose (mg/dL) 116 H (70-110) mg/dL Ur Specific [place] (1.001-1.035) Urine Protein (Negative) Urine Glucose (UA) (Negative) Urine Ketones (Negative) Urine Blood (Negative) Urine Mucus (None) /hpf 06/09/24 06/09/24 06/09/24 Range/Units 22:20 22:55 23:42 Hct (34.0-46.0) % Lymphocytes # (1.0-4.8) k/uL APTT (22.0-30.0) sec VBG pCO2 35 L (37-51) mmHg VBG HCO3 18 L (24-28) mmol/L Sodium 133 L (137-145) mmol/L Carbon Dioxide 17 L (22-30) mmol/L BUN 24 H (7-17) mg/dL Glucose 118 H (74-99) mg/dL POC Glucose (mg/dL) (70-110) mg/dL Ur Specific [place] 1.039 H (1.001-1.035) Urine Protein 1+ H (Negative) Urine Glucose (UA) 4+ H (Negative) Urine Ketones 2+ H (Negative) Urine Blood Trace H (Negative) Urine Mucus Rare H (None) /hpf Assessment and Plan Plan: Probable acute ischemic stroke, with slurred speech and difficulty finding words Underlying history of hypertension Underlying history of hyperlipidemia Underlying history of [id number] diabetes mellitus Underlying history of depression Underlying history of gastroesophageal reflux disease At this time patient was seen and examined Home medications reviewed and reordered Echocardiogram ordered Neurology consultation requested Will follow closely
[2024-06-10] MEDS: ENOXAPARIN 40 MG/0.4 ML SYRINGE SQ SCH (18:15)
[2024-06-10] MEDS: PANTOPRAZOLE 40 MG TABLET PO SCH (18:15)
[2024-06-10 18:16] LABS: Glucose,Whole Blood 133 mg/dL (70-110)
[2024-06-10] MEDS: DICYCLOMINE 10 MG CAP PO SCH (20:06)
[2024-06-10] MEDS: metFORMIN 500 MG TAB PO SCH (20:06)
[2024-06-10] MEDS: LATANOPROST 0.005% OPHTH DROPS 2.5 ML BTL BOTH EYES SCH (20:06)
[2024-06-10] MEDS: glipiZIDE 5 MG TAB PO SCH (20:06)
[2024-06-10] MEDS ORDERED: ATORVASTATIN 80 MG TAB PO SCH (21:00)
[2024-06-11 00:38] LABS: Glucose,Whole Blood 77 mg/dL (70-110)
[2024-06-11 05:33] LABS: Glucose,Whole Blood 103 mg/dL (70-110)
--- NOTE | 2024-06-11 08:14 | P.CNNES ---
History of Present Illness Consult date: 06/10/24 Requesting physician: Wen Roque Reason for Consult: CVA/Aphasia History of Present Illness: Patient is a 79-year-old right-handed female with history of diabetes, X tobacco use, came to the hospital by ambulance yesterday at 9:44 PM for possible TIA versus CVA. Patient states that the night prior to arrival, she was doing well. Yesterday morning she woke up at 8:30 in the morning, and felt "terribly confused". She could not put sentences together, could not put words together like "tray" or other words. Her balance was off. She also notices that her back and thighs were hurting. She had a very bad headache. Patient does have history of migraines which would involve the frontal region, but this headache was different, as it was involving the occipital region. Patient stated home, slept most of the day. When she got up at night, patient continued to be disoriented and not making sense while talking therefore family called EMS and was brought to the hospital. This morning while in the hospital when she is woken up, has improved a lot, but not 100% back to normal. She still has mom ents when she can't put together and does not remember. Family agreed that patient did have some slurring of speech at that time, but there was no facial droop, no visual disturbance or focal numbness tingling or focal weakness. As per EMS flowsheet, when they arrived at the location for a headache and patient not acting right. Patient has headache with back pain in the middle of her back. Patient mentioned that she is also having hard time getting her words out. Per patient, she knows what she wants to say, and knows what something is however states she is unable to find the right words. Per patient, this has never happened before. She has nausea vomiting and diarrhea as well. Family mentioned that they noticed her not acting appropriately earlier in the evening. Last known possible well was around 7:30 PM the night before. There was no paralysis, weakness facial droop or slurred speech. Patient was alert and oriented x 4 answering all questions appropriately. Vital signs at the scene was blood pressure 150/92, pulse rate 84 respiration 17 saturation 100, temperature 98.9. Blood test shows normal CBC, PT PTT, pH 7.33, HCO3 18 and pCO2 35. Sodium 133, renal functions, hepatic panel, troponin, CK normal. UA showed 4+ glucose, 2+ ketones. Acetone is positive. EKG showed sinus rhythm. Chest x-ray showed no acute cardiopulmonary process. CT head revealed no acute intracranial process. Nonspecific white matter changes, likely secondary to chronic small vessel ischemic disease. I personally reviewed CT head, agree with the findings. CT of thoracic aorta reve aled no evidence of aortic dissection aneurysm or occlusion. 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 Right breast implant, hepatic steatosis. Home medications include metformin, glipizide, Januvia, Crestor 20 mg, aspirin 81 mg 3 times per week for last 1 year, Jardiance, lisinopril, Effexor and Protonix. Patient has history of migraines in the past, but as she has got older, they has gotten better. It is more frequent involving the right frontal region as compared to the left although when it happens on the left it is more worse. She puts ice packs on the head. Patient denies any history of hypertension. She has diabetes for a few years. She smoked 1-1/2 pack per day for 15 years, quit at age 39 (40 years ago and (. Denies any alcohol use. Review of Systems All pertinent positive and negative review of systems mentioned in the HPI, otherwise unremarkable. Past Medical History Past Medical History: Cancer, Diabetes Mellitus, Eye Disorder, GERD/Reflux, Hearing Disorder / Deafness, Hyperlipidemia, Osteoarthritis (OA), Skin Disorder Additional Past Medical History / Comment(s): Glaucoma. Dry Eyes. Bilateral hearing aid use. Migraines. Hx pancreatitis. Hx right breast cancer 2016, last radiation 02/2017. Eczema. History of Any Multi-Drug Resistant Organisms: None Reported, C-DIFF Date of last positivie culture/infection: 2002 MDRO Source:: STOOL Past Surgical History: Appendectomy, Bladder Surgery, Breast Surgery, Cholecystectomy, Hysterectomy, Joint Replacement, Orthopedic Surgery Additional Past Surgical History / Comment(s): ORIF left ankle with hardware, BILATERAL SHOULDER SURGERY FOR SPUR REMOVAL, BILATERAL HEEL BONE SPUR REMOVAL AND PLANTAR FASCITIS SURGERY, LEFT GREAT TOE BONE SPUR REMOVAL WITH HARDWARE PLACED, right breast lumpectomy X2, colonoscopy, right breast mastectomy, left breast reduction, right knee replacement. Past Anesthesia/Blood Transfusion Reactions: Motion Sickness, Postoperative Nausea & Vomiting (PONV) Additional Past Anesthesia/Blood Transfusion Reaction / Comment(s): States sever e post-op nausea & vomiting after surgery. Dad had had PONV. Past Psychological History: Depression Smoking Status: Former smoker Past Alcohol Use History: Rare Past Drug Use History: None Reported - Past Family History Sister(s) Family Medical History: Cancer Additional Family Medical History / Comment(s): Cervical and breast cancer. Father Family Medical History: Cancer Additional Family Medical History / Comment(s): Multiple myeloma. Mother Family Medical History: Cancer Additional Family Medical History / Comment(s): Lung cancer. Medications and Allergies Home Medications Medication Instructions Recorded Confirmed Type metFORMIN HCL 500 mg PO TID 12/02/13 06/10/24 History glipiZIDE [Glucotrol] 5 mg PO TID 07/22/17 06/10/24 History sitaGLIPtin PHOSPHATE [Januvia] 100 mg PO DAILY@1200 01/09/19 06/10/24 History Rosuvastatin [Crestor] 20 mg PO DAILY@1200 10/21/19 06/10/24 History Empagliflozin [Jardiance] 25 mg PO DAILY 08/17/21 06/10/24 History Bimatoprost [Lumigan 0.01% Ophth 1 drop BOTH EYES HS 09/10/23 06/10/24 History Soln] Aspirin [[place] Aspirin EC] 81 mg PO MOWEFR 09/13/23 06/10/24 History Cholecalciferol (Vitamin D3) 50 mcg PO DAILY 06/10/24 06/10/24 History [Vitamin D3 (50 Mcg = 2000 Iu)] Dicyclomine [Bentyl] 10 mg PO BID 06/10/24 06/10/24 History Pantoprazole [Protonix] 40 mg PO W/SUPPER 06/10/24 06/10/24 History Venlafaxine HCl [Effexor XR] 75 mg PO DAILY 06/10/24 06/10/24 History lisinopriL [Zestril] 2.5 mg PO DAILY 06/10/24 06/10/24 History Allergies Allergy/AdvReac Type Severity Reaction Status Date / Time adhesive Allergy Intermediate Rash/Hives Verified 06/10/24 07:02 Physical Examination - Vital Signs Vital Signs: Vital Signs Temp Pulse Resp BP Pulse Ox 06/10/24 13:09 75 20 132/57 97 06/10/24 11:34 71 18 121/59 96 06/10/24 09:58 71 18 131/74 94 L 06/10/24 07:54 98.1 F 71 20 131/57 97 06/10/24 06:13 98.2 F 78 18 124/66 98 06/10/24 03:46 82 16 113/57 96 06/10/24 01:00 85 18 122/69 97 06/09/24 23:34 92 18 120/62 97 06/09/24 21:45 98.8 F 89 18 122/65 99 Intake and Output 06/09/24 06/10/24 06/10/24 22:59 06:59 14:59 Other: Weight 72.575 kg Patient is an elderly female, very pleasant, in no acute distress. Patient is alert awake oriented to time place and person. Speech and language functions are normal. Patient can name and repeat very well. No aphasia or dysarthria. Attention, concentration and fund of knowledge is adequate. I did not notice any obvious speech difficulty while routine conversation. On cranial nerve examination, pupils are equal, round and reacting to light, visual hayden are full on confrontation, with no neglect on double simultaneous stimulation. Extraocular muscles are intact with no nystagmus. Face is symmetric, tongue protrudes to the midline. Palatal elevation and sensation normal, hearing and shoulder shrug normal, facial sensation normal. On muscle strength testing, there is no pronator drift and the strength is normal in arms and legs distally and proximally, except right hip flexion which is 5-. Patient has had 3 right knee surgeries in the past. Deep tendon reflexes are symmetric but very hypoactive and plantars downgoing bilaterally. Sensory to touch is equal with no neglect on double simultaneous stimulation. Cerebellar function showed no ataxia for [id number] testing. No dysdiadochokinesia. No ataxia for [id number] testing on either side. Tone and bulk of muscles normal. Gait deferred.. On general examination, there is no carotid bruit or murmur, S1-S2 audible. Chest is clear on consultation. Abdomen is soft nontender. No organomegaly, bowel sounds present. Peripheral pulses are present. No peripheral edema. Results - Laboratory Findings CBC and BMP: 06/09/24 22:20 06/09/24 22:20 Abnormal Lab Findings: Abnormal Labs 06/09/24 06/09/24 06/09/24 22:13 22:20 22:20 Hct 47.7 H Lymphocytes # 0.4 L APTT 20.8 L VBG pCO2 VBG HCO3 Sodium Carbon Dioxide BUN Glucose POC Glucose (mg/dL) 116 H Ur Specific [place] Urine Protein Urine Glucose (UA) Urine Ketones Urine Blood Urine Mucus 06/09/24 06/09/24 06/09/24 22:20 22:55 23:42 Hct Lymphocytes # APTT VBG pCO2 35 L VBG HCO3 18 L Sodium 133 L Carbon Dioxide 17 L BUN 24 H Glucose 118 H POC Glucose (mg/dL) Ur Specific [place] 1.039 H Urine Protein 1+ H Urine Glucose (UA) 4+ H Urine Ketones 2+ H Urine Blood Trace H Urine Mucus Rare H 06/10/24 11:45 Hct Lymphocytes # APTT VBG pCO2 VBG HCO3 Sodium Carbon Dioxide BUN Glucose POC Glucose (mg/dL) 127 H Ur Specific [place] Urine Protein Urine Glucose (UA) Urine Ketones Urine Blood Urine Mucus Assessment and Plan Assessment: * Probable stroke/TIA, manifesting with expressive aphasia, slurred speech. Symptoms lasted for about 24 hours. Her current NIH stroke scale is 0. Patient believes she still has very mild moments of difficulty speaking. Rule out CVA versus TIA. * Diabetes * Hyperlipidemia * X tobacco use * History of migraine headaches * History of breast cancer, in remission. Plan: * Patient has presented with stroke/TIA. Patient was not a candidate for TNK, as she came outside the window for TNK. No LVO on CTA. * MRI of the brain without contrast, evaluate for acute CVA * 2-D echo revealed normal LV EF 55-60%. Mildly increased septal wall thickness. Mildly increased posterior wall thickness. No obvious regional wall motion abnormalities. Mild right ventricular dilation. Normal left atrial size. Negative agitated saline bubble study for gfeoc-to-mebi shunt. No valvular abnormalities. Thickened pericardium without effusion. * CTA head and neck showed: No evidence of dissection of the cervical internal carotid arteries or vertebral arteries. No evidence of significant stenosis at the carotid bifurcations. No evidence of intracranial high-grade stenosis or intracranial aneurysm. * Fasting a.m. lipid panel. Continue Lipitor 40 mg daily (home dose) * Hemoglobin A1c 6.6. Diabetes is well controlled. * Permissive hypertension for next 24-48 hours * Patient has been taking aspirin 81 mg 3 times a week for last 1 year. Patient needs to stay on aspirin 81 mg daily. We will place her on DAPT with Plavix 75 mg daily for 21 days. Thereafter she can stop Plavix and continue aspirin indefinitely. Her ABCD-2 score is 5, which is moderate risk. * Neuro checks as per protocol. * Telemetry monitoring rule out any arrhythmia * PT, OT, speech therapy * DVT prophylaxis: Heparin 5000 units subcu every 8 hours * Neurology will continue to follow. Thank you for the consult.
[2024-06-11 08:27] LABS: Chol/HDL Ratio 2.05 Ratio; LDL Cholesterol,Calculated 25.6 mg/dL (0.0-131.0)
[2024-06-11 08:28] LABS: ALT 17 U/L (8-44); AST 21 U/L (13-35); Albumin 3.5 g/dL (3.8-4.9); Albumin/Globulin Ratio 1.67 Ratio (1.60-3.17); Alkaline Phosphatase 64 U/L (41-126); BUN/Creat Ratio 24.86 Ratio (12.00-20.00); Blood Urea Nitrogen 17.4 mg/dL (9.0-27.0); Calcium 8.5 mg/dL (8.7-10.3); Carbon Dioxide 21.1 mmol/L (21.6-31.8); Chloride 109 mmol/L (96-109); Globulin 2.1 g/dL (1.6-3.3); Glucose 108 mg/dL (70-110); Potassium 4.1 mmol/L (3.5-5.5); Sodium 141 mmol/L (135-145); Total Bilirubin 0.4 mg/dL (0.3-1.2); Total Protein 5.6 g/dL (6.2-8.2)
[2024-06-11 08:54] LABS: Basophils # (A) 0.01 X 10*3/uL (0.00-0.10); Basophils % (A) 0.4 %; Eosinophils # (A) 0.12 X 10*3/uL (0.04-0.35); Eosinophils % (A) 4.6 %; HCT 40.6 % (37.2-46.3); HGB 13.1 g/dL (12.0-15.0); Lymphocytes % (A) 26.6 %; MCH 30.7 pg (27.0-32.0); MCHC 32.3 g/dL (32.0-37.0); MCV 95.1 FL (80.0-97.0); Mean Platelet Volume 11.6 FL (9.5-12.2); Monocytes # (A) 0.32 X 10*3/uL (0.20-1.00); Monocytes % (A) 12.2 %; NRBC Per 100 WBC 0 X 10*3/uL (0.00-0.01); Neutrophils # (A) 1.47 X 10*3/uL (1.80-7.70); Neutrophils % (A) 55.8 %; Platelet Count 126 X 10*3/uL (140-440); RBC 4.27 X 10*6/uL (4.10-5.20); RDW 13.8 % (11.5-14.5); WBC 2.63 X 10*3/uL (4.50-10.00)
[2024-06-11] MEDS: VENLAFAXINE HCL ER 75 MG CAP PO SCH (08:59)
[2024-06-11] MEDS: CHOLECALCIFEROL 25 MCG (1000 IU) TABLET PO SCH (09:00)
[2024-06-11] MEDS ORDERED: ASPIRIN 325 MG TAB PO SCH (09:00)
[2024-06-11] MEDS: DAPAGLIFLOZIN PROPANEDIOL 10 MG TABLET PO SCH (09:00)
--- NOTE | 2024-06-11 09:01 | P.PN ---
Subjective Progress Note Date: 06/11/24 Angelina Perez, is a 79-year-old female who presented to [facility] emergency room after having episode of slurred speech and difficulty finding words, patient was also complaining of headache and nausea. She was evaluated in the emergency room vital examination on presentation revealed a temperature of 98.8 pulse 89 respiration 18 blood pressure 122/65 pulse ox 99% on room air Laboratory data revealed a white blood count of 7.1 hemoglobin 15.0 platelet count 156 sodium 133 potassium 4.7 chloride 99 CO2 17 BUN 24 creatinine 0.65 Testing in the emergency room revealed CT scan of the brain without contrast done in the emergency room revealed no acute abnormality, nonspecific white matter changes likely secondary to chronic small vessel ischemic disease, CT angiogram of the neck and head revealed no acute abnormality. Patient was admitted to medical floor for further evaluation and treatment, neurology consultation was requested, echocardiogram ordered. On 06/11/2024 patient is alert and oriented x 3. Patient reports headache but no new neurological symptoms. 2D echo completed showing an EF of 55 to 60% MRI of the brain has been ordered per neurology. Patient started on Plavix and aspirin patient to continue on Plavix for 21 days and then continue aspirin only. Possi ble discharge home today after MRI completion and neurology clearance. Patient denies chest pain or shortness of breath. Patient denies nausea vomiting or diarrhea. Patient denies any urinary burning or frequency Objective - Vital Signs Vital signs: Vital Signs Temp 98.4 F 06/11/24 07:00 Pulse 75 06/11/24 07:00 Resp 15 06/11/24 07:00 BP 120/71 06/11/24 07:00 Pulse Ox 93 L 06/11/24 07:00 FiO2 Intake & Output 06/10/24 06/11/24 06/11/24 18:59 06:59 18:59 Intake Total 118 Balance 118 Weight 72.575 kg Intake: Oral 118 Other: Voiding Method Toilet Toilet # Voids 2 - Exam In general patient is alert and oriented x 3 in no distress HEENT head normocephalic and atraumatic Neck is supple no JVD no goiter no lymphadenopathy no carotid bruit Chest examination is clear to auscultation no crackles no wheezing Cardiac exam reveals regular heart sounds S1 and S2 no gallops no murmurs Abdomen is soft nontender no organomegaly with normal bowel sounds Extremity exam reveals no edema no cyanosis or clubbing Neurological examination reveals no gross focal deficits - Labs CBC & Chem 7: 06/11/24 05:36 06/11/24 05:36 Labs: Abnormal Lab Results - Last 24 Hours (Table) 06/09/24 06/10/24 06/10/24 Range/Units 22:20 11:45 18:04 WBC (4.50-10.00) X 10*3/uL Plt Count (140-440) X 10*3/uL Neutrophils # (1.80-7.70) X 10*3/uL Lymphocytes # (0.90-5.00) X 10*3/uL Carbon Dioxide (21.6-31.8) mmol/L BUN/Creatinine Ratio (12.00-20.00) Ratio POC Glucose (mg/dL) 127 H 133 H (70-110) mg/dL Hemoglobin A1c 6.6 H (<=6.0) % Calcium (8.7-10.3) mg/dL Total Protein (6.2-8.2) g/dL Albumin (3.8-4.9) g/dL Triglycerides (0.00-149.00) mg/dL 06/11/24 06/11/24 Range/Units 05:36 05:36 WBC 2.63 L (4.50-10.00) X 10*3/uL Plt Count 126 L (140-440) X 10*3/uL Neutrophils # 1.47 L (1.80-7.70) X 10*3/uL Lymphocytes # 0.70 L (0.90-5.00) X 10*3/uL Carbon Dioxide 21.1 L (21.6-31.8) mmol/L BUN/Creatinine Ratio 24.86 H (12.00-20.00) Ratio POC Glucose (mg/dL) (70-110) mg/dL Hemoglobin A1c (<=6.0) % Calcium 8.5 L (8.7-10.3) mg/dL Total Protein 5.6 L (6.2-8.2) g/dL Albumin 3.5 L (3.8-4.9) g/dL Triglycerides 169.00 H (0.00-149.00) mg/dL Assessment and Plan Plan: Probable acute ischemic stroke, with slurred speech and difficulty finding words Underlying history of hypertension Underlying history of hyperlipidemia Underlying history of [id number]-wajxizhci diabetes mellitus Underlying history of depression Underlying history of gastroesophageal reflux disease At this time patient was seen and examined Home medications reviewed and reordered 2D echo completed MRI of the brain ordered Neurology consultation requested Will follow closely
[2024-06-11] MEDS: LORazepam 1 MG/0.5 ML VIAL IV STA (10:28)
--- NOTE | 2024-06-11 11:41 | MR ---
EXAMINATION TYPE: MR brain wo con DATE OF EXAM: 06/11/2024 11:28 AM COMPARISON: 12/31/2023. CLINICAL INDICATION: Female, 79 years old with history of Neuro deficit, acute, stroke suspected; PHH , Episode of JORDAN, dizziness, confusion, difficulty finding words. TECHNIQUE: Multi planar, multi sequence imaging was performed through the brain including: T1, T2, In version recovery, Diffusion weighted imaging, and gradient echo imaging. No gadolinium was given. FINDINGS: Mild cerebral atrophy with proportional dilation of ventricular system. Scattered foci of high T2 s ignal intensity are seen within the periventricular white matter. Midline structures show no abnormal ity. Diffusion-weighted imaging shows no evidence of restricted diffusion. The susceptibility weighte d images do not reveal any evidence for micro-hemorrhage. The bone marrow signal is within normal limits. Paranasal sinuses and mastoid air cells: No significant paranasal sinus disease. Visualized orbits: Bilateral aphakia IMPRESSION: 1. No evidence of intracranial mass or acute/subacute infarct. 2. Nonspecific white matter changes, likely secondary to small vessel ischemic disease. [facility], , 06/11/2024 11:38 AM
[2024-06-11 12:09] LABS: Glucose,Whole Blood 134 mg/dL (70-110)
[2024-06-11] MEDS: ATORVASTATIN 40 MG TAB PO SCH (12:17)
[2024-06-11] MEDS: LINAGLIPTIN 5 MG TABLET PO SCH (12:17)
[2024-06-11 14:23] VITALS: BP 116/77; PULSE 72; RESP 16; TEMP 96
--- NOTE | 2024-06-11 16:30 | P.DS ---
Providers Date of admission: 06/10/24 00:40 Expected date of discharge: 06/11/24 Attending physician: Henry Bowling Consults: 06/10/24 00:40 Consult Physician Routine Consulting Provider: Judd Ibarra Consult Reason/Comments: CVA/Aphasia Do you want consulting provider notified?: Yes, Notify in am Primary care physician: Henry Bowling [facility] Course: Diagnosis on discharge: Probable acute ischemic stroke, with slurred speech and difficulty finding words Underlying history of hypertension Underlying history of hyperlipidemia Underlying history of [id number]-jfquzrbzx diabetes mellitus Underlying history of depression Underlying history of gastroesophageal reflux disease Hospital course: Angelina Perez, is a 79-year-old female who presented to [facility] emergency room after having episode of slurred speech and difficulty finding words, patient was also complaining of headache and nausea. She was evaluated in the emergency room vital examination on presentation revealed a temperature of 98.8 pulse 89 respiration 18 blood pressure 122/65 pulse ox 99% on room air Laboratory data revealed a white blood count of 7.1 hemoglobin 15.0 platelet count 156 sodium 133 potassium 4.7 chloride 99 CO2 17 BUN 24 creatinine 0.65 Testing in the emergency room revealed CT scan of the brain without contrast done in the emergency room revealed no acute abnormality, nonspecific white matter changes likely secondary to chronic small vessel ischemic disease, CT angiogram of the neck and head revealed no acute abnormality. Patient was admitted to medical floor for further evaluation and treatment, neurology consultation was requested, echocardiogram ordered. On 06/11/2024 patient is alert and oriented x 3. Patient reports headache but no new neurological symptoms. 2D echo completed showing an EF of 55 to 60% MRI of the brain has been ordered per neurology. Patient started on Plavix and aspirin patient to continue on Plavix for 21 days and then continue aspirin only. Possible discharge home today after MRI completion and neurology clearance. Patient denies chest pain or shortness of breath. Patient denies nausea vomiting or diarrhea. Patient denies any urinary burning or frequency. MRI did not reveal any acute abnormality, patient was evaluated by neurology and was cleared for discharge. She will continue on aspirin and Plavix daily for 1 month Will arrange for appointment with cardiology for 30-day event monitor Patient Condition at Discharge: Stable Plan - Discharge Summary New Discharge Prescriptions: New Clopidogrel [Plavix] 75 mg PO DAILY 30 Days #30 tab Continue metFORMIN HCL 500 mg PO TID glipiZIDE [Glucotrol] 5 mg PO TID sitaGLIPtin PHOSPHATE [Januvia] 100 mg PO DAILY@1200 Rosuvastatin [Crestor] 20 mg PO DAILY@1200 Bimatoprost [[place] 0.01% Ophth Soln] 1 drop BOTH EYES HS lisinopriL [Zestril] 2.5 mg PO DAILY Empagliflozin [Jardiance] 25 mg PO DAILY Aspirin [[place] Aspirin EC] 81 mg PO MOWEFR Cholecalciferol (Vitamin D3) [Vitamin D3 (50 Mcg = 2000 Iu)] 50 mcg PO DAILY Dicyclomine [Bentyl] 10 mg PO BID Venlafaxine HCl [Effexor XR] 75 mg PO DAILY Pantoprazole [Protonix] 40 mg PO W/SUPPER Discharge Medication List metFORMIN HCL 500 mg PO TID 12/02/13 [History] glipiZIDE [Glucotrol] 5 mg PO TID 07/22/17 [History] sitaGLIPtin PHOSPHATE [Januvia] 100 mg PO DAILY@1200 01/09/19 [History] Rosuvastatin [Crestor] 20 mg PO DAILY@1200 10/21/19 [History] Empagliflozin [Jardiance] 25 mg PO DAILY 08/17/21 [History] Bimatoprost [[place] 0.01% Ophth Soln] 1 drop BOTH EYES HS 09/10/23 [History] Aspirin [[place] Aspirin EC] 81 mg PO MOWEFR 09/13/23 [History] Cholecalciferol (Vitamin D3) [Vitamin D3 (50 Mcg = 2000 Iu)] 50 mcg PO DAILY 06/10/24 [History] Dicyclomine [Bentyl] 10 mg PO BID 06/10/24 [History] Pantoprazole [Protonix] 40 mg PO W/SUPPER 06/10/24 [History] Venlafaxine HCl [Effexor XR] 75 mg PO DAILY 06/10/24 [History] lisinopriL [Zestril] 2.5 mg PO DAILY 06/10/24 [History] Clopidogrel [Plavix] 75 mg PO DAILY 30 Days #30 tab 06/11/24 [Rx] Follow up Appointment(s)/Referral(s): Henry Bowling MD [Primary Care Provider] - 1-2 days
[2024-06-12] MEDS ORDERED: ASPIRIN 81 MG PO SCH (09:00)
== END 2024-06-11 18:30 | disposition home or self-care (01) ==
LOC: EC 21:44 → 6NMEDSUR 06-10 00:40
PROVIDERS: ADMIT Internal Medicine; ATTEND Internal Medicine
DX: R47.81 Slurred speech (principal); R47.01 Aphasia; R29.700 NIHSS score 0; G43.909 Migraine, unspecified, not intractable, without status migrainosus; H91.90 Unspecified hearing loss, unspecified ear; E11.9 Type 2 diabetes mellitus without complications; E78.5 Hyperlipidemia, unspecified; F32.A Depression, unspecified; I10 Essential (primary) hypertension; K21.9 Gastro-esophageal reflux disease without esophagitis; H40.9 Unspecified glaucoma; Z79.84 Long term (current) use of oral hypoglycemic drugs; Z79.899 Other long term (current) drug therapy; Z85.3 Personal history of malignant neoplasm of breast; Z87.891 Personal history of nicotine dependence; Z97.4 Presence of external hearing-aid
CPT/HCPCS: 96361 ×3; 96372 ×2; 96375 ×3; 96376; 96374; 99285; 36415; 93005; 93306; 97165; 92610; 92523; 80061; 80053 ×2; 82550; 82803; 82009; 83735; 84484 ×2; 85025 ×2; 85610; 85730; 81001; 83036; 71045; 70496; 70450; 70498; 71275; 74174; 70551; G0378 ×2; J2060; J2405 ×2; J1650 ×2; J3490; J2270; Q9967

== ENCOUNTER → 2024-08-21 | Outpatient (CLI) | payer MEDICARE | END | disposition home or self-care (01) | LOC: LABWHC1 11:59 | PROVIDERS: ATTEND Orthopaedic Surgery | DX: T84.84XA Pain due to internal orthopedic prosthetic devices, implants and grafts, initial encounter (principal); M25.561 Pain in right knee; Z96.651 Presence of right artificial knee joint | CPT/HCPCS: 36415; 85379; 85652; 86140 ==